=== PATIENT | female | born 1930 | race Caucasian/White ===

== ENCOUNTER 2016-03-24 11:21 | Observation (INO) ==
--- NOTE | 2016-03-24 11:42 | Emergency Department Note ---
Disposition Clinical Impression: Chest pain, Atrial fibrillation with rapid ventricular response, DM (diabetes mellitus), type 2, HTN (hypertension), Hyperlipidemia Disposition: Admitted As Inpatient Forms: ED Satisfaction Letter General Adult HPI - General Chief complaint: ED Chest Pain Stated complaint: chest pain Time Seen by Provider: 03/24/16 11:42 Source: patient Limitations: no limitations - History of Present Illness HPI Narrative: 85-year-old female reports emergency department complaining of general weakness and some chest discomfort. She takes per Pradaxa for her atrial fibrillation. The patient has not passed out. There is no history of fever cough or joshua shortness of breath. No coughing of blood leg swelling or pain about pain vomiting or diarrhea. The patient has had no trouble walking talking hearing seeing or speaking. She had more symptoms today so she came to the ED for evaluation. The patient denies any trauma rash or fever. There is no history of headache neck stiffness or confusion or convulsion. There is no history of bleeding of any sort. The patient has known atrial fibrillation. She has been somewhat anxious secondary to her sister's and took an extra dose of Prozac today. There is no history of suicidality or homicidality. No falls or injuries. 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 The chest pain has resolved. Onset (ago): day(s) Pain Scale: 0 - Related Data Home Medications Medication Instructions Recorded Confirmed FLUoxetine HCl [Prozac] 20 mg PO QAM 12/01/14 12/17/15 Folic Acid 1 mg PO QAM 12/01/14 12/17/15 GlipiZIDE XL (24 HR) [Glucotrol XL] 5 mg PO BID 12/01/14 12/17/15 Metformin HCl [Fortamet] 500 mg PO BID 12/01/14 12/17/15 Omeprazole [PriLOSEC] 20 mg PO QAM 01/20/15 12/17/15 Diltiazem CD (24hr) [Cardizem CD] 240 mg PO HS 05/10/15 12/17/15 Isosorbide MONOnitrate (24 HR) 135 mg PO QAM 05/10/15 12/17/15 [Imdur] PredniSONE 5 mg PO DAILY 08/12/15 12/17/15 Sulfasalazine [Azulfidine] 1,000 mg PO BID 08/12/15 12/17/15 Vitamin D3/Folic Acid [Dermacinrx 5,000 unit PO QWEEK 08/12/15 12/17/15 Purefolix Tablet] Digoxin [Lanoxin] 0.25 mg PO DAILY 12/17/15 12/17/15 Previous Rx's Medication Instructions Recorded Dabigatran [Pradaxa] 150 mg PO BID #60 capsule 01/22/15 Acetaminophen [Tylenol] 650 mg PO Q6HR PRN #0 tablet 05/15/15 Aspirin 325 mg PO DAILY tablet 05/15/15 Simvastatin [Zocor] 80 mg PO HS #0 tablet 05/15/15 Metoprolol [Lopressor] 50 mg PO BID #60 tablet 08/13/15 Ondansetron [Zofran] 8 mg PO Q8HR PRN #10 tablet 12/14/15 Ciprofloxacin [Cipro] 500 mg PO BID #14 tablet 12/20/15 MetroNIDAZOLE [Flagyl] 500 mg PO TID #21 tablet 12/20/15 Allergies Allergy/AdvReac Type Severity Reaction Status Date / Time No Known Allergies Allergy Verified 05/10/15 18:29 All systems ED: reviewed and negative except as stated. 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: Reports: non-contributory - Social History Smoking Status: Never smoker Smokeless Tobacco Status: No Alcohol use: Reports: none Drug use: Reports: none Physical Exam - General Limitations: no limitations General appearance: alert, in no apparent distress - Head Head exam: atraumatic, normocephalic, normal inspection - Eye Eye exam: Present: normal appearance, PERRL, EOMI - ENT ENT exam: normal exam, normal oropharynx, mucous membranes moist, TM's normal bilaterally, normal external ear exam - Neck Neck exam: Present: normal inspection, full ROM, trachea midline - Chest Chest inspection: Present: normal inspection, symmetric chest wall rise - Respiratory Respiratory exam: Present: normal lung sounds bilaterally. Absent: respiratory distress - Cardiovascular Cardiovascular exam: Present: tachycardia, irregular rhythm - Abdominal Exam Abdominal exam: Present: soft, Non-Tender. Absent: tenderness, distention, guarding, rebound, rigidity, pulsatile mass - Extremities Exam Extremities exam: Present: normal inspection, full ROM. Absent: tenderness, normal capillary refill, pedal edema, joint swelling, calf tenderness - Expanded Lower Extremity Exam Neurovascular/Tendon exam: Absent: normal capillary refill, motor deficit, sensory deficit, tendon deficit - Back Exam Back exam: Present: normal inspection, full ROM. Absent: tenderness, CVA tenderness (R), CVA tenderness (L), vertebral tenderness - Neurological Exam Neurological exam: Present: alert, oriented X3, CN II-XII intact. Absent: motor sensory deficit - Psychiatric Psychiatric exam: Present: normal affect, normal mood - Skin Skin exam: Present: warm, dry, intact, normal color. Absent: rash, cyanosis, diaphoresis, erythema, pallor, mottled Course Vital Signs Temperature 97.6 F 03/24/16 11:23 Pulse Rate 80 03/24/16 11:23 Respiratory Rate 18 03/24/16 11:23 Blood Pressure 125/79 03/24/16 11:23 O2 Sat by Pulse Oximetry 100 03/24/16 11:23 Temperature 97.6 F 03/24/16 11:23 Pulse Rate 80 03/24/16 11:23 Respiratory Rate 18 03/24/16 11:23 Blood Pressure 125/79 03/24/16 11:23 O2 Sat by Pulse Oximetry 100 03/24/16 11:23 Oxygen Delivery Oxygen Delivery Room Air Medical Decision Making - [facility] Narrative Medical decision making narrative: The patient is elderly, has diabetes, hypertension, hyperlipidemia, and is complaining of chest pain. The patient had initial heart rate in the 120s with what appeared to be rapid atrial fibrillation. The patient was given Cardizem which did bring her down under 100. Second EKG is been ordered. Aspirin is given. The patient takes Pradaxa. Chest x-ray negative, laboratory testing essentially nonacute. Based on her age and multiple risk factors including atrial fib relation with RVR, I think she should be admitted. I reviewed the case with the hospitalist on-call who accepted the patient to their care. - Lab Data Lab results reviewed: Yes I reviewed the patient's lab results. Result diagrams: 03/24/16 12:05 03/24/16 12:05 Lab Results 03/24/16 03/24/16 03/24/16 Range/Units 12:05 12:05 12:05 WBC 7.8 (4.3-11.1) K/mcL RBC 4.63 (3.82-4.97) M/mcL Hgb 13.3 (11.5-15.4) g/dL Hct 40.0 (35.3-44.9) % MCV 86.4 (83.0-100.0) fL MCH 28.7 (28.0-33.3) pg MCHC 33.3 (31.6-35.5) g/dL RDW 18.6 H (11.5-14.5) % Plt Count 308 (140-400) K/mcL MPV 11.0 (9.4-12.4) fL Immature Gran % 0.4 (0-4) % Seg Neutrophils % 66.6 % Lymphocytes % 22.6 % Monocytes % 7.9 % Eosinophils % 2.2 % Basophils % 0.3 % Neutrophils # 5.2 (1.6-8.9) K/mcL Lymphocytes # 1.8 (0.6-4.6) K/mcL Monocytes # 0.6 (0.0-1.3) K/mcL Eosinophils # 0.2 (0.0-0.6) K/mcL Basophils # 0.0 (0.0-0.2) K/mcL PT 13.6 H (9.4-12.1) Seconds INR 1.3 APTT 47.1 H (26.0-36.0) Seconds Sodium 136 (136-145) mEq/L Potassium 3.3 L (3.5-4.5) mEq/L Chloride 101 (98-109) mEq/L Carbon Dioxide 25 (19-29) mEq/L BUN 6 L (7-20) mg/dL Creatinine 0.79 (0.57-1.11) mg/dL Est GFR ( Amer) > 60 (> 60) Est GFR (Non-Af Amer) > 60 (> 60) BUN/Creatinine Ratio 8 (6-26) Glucose 248 H (70-99) mg/dL Calculated Osmolality 288 (280-300) Calcium 8.6 (8.6-10.8) mg/dL Total Bilirubin 0.8 (0.2-1.2) mg/dL Direct Bilirubin 0.4 (0.0-0.5) mg/dL Indirect Bilirubin 0.4 (0.0-1.2) mg/dL AST 11 (5-34) Units/L ALT 6 (0-55) Units/L Alkaline Phosphatase 49 (38-126) Units/L Creatine Kinase 55 (29-168) Units/L Troponin I (0-0.03) ng/mL C-Reactive Protein 15 H (Less than 5) mg/L Serum Total Protein 6.1 (6.0-8.3) g/dL Albumin 2.9 L (3.5-5.0) g/dL Globulin 3.2 (2.4-3.5) g/dL Albumin/Globulin Ratio 0.9 L (1.1-2.2) Lipase 21 (8-78) Units/L / Range/Units 12:05 WBC (4.3-11.1) K/mcL RBC (3.82-4.97) M/mcL Hgb (11.5-15.4) g/dL Hct (35.3-44.9) % MCV (83.0-100.0) fL MCH (28.0-33.3) pg MCHC (31.6-35.5) g/dL RDW (11.5-14.5) % Plt Count (140-400) K/mcL MPV (9.4-12.4) fL Immature Gran % (0-4) % Seg Neutrophils % % Lymphocytes % % Monocytes % % Eosinophils % % Basophils % % Neutrophils # (1.6-8.9) K/mcL Lymphocytes # (0.6-4.6) K/mcL Monocytes # (0.0-1.3) K/mcL Eosinophils # (0.0-0.6) K/mcL Basophils # (0.0-0.2) K/mcL PT (9.4-12.1) Seconds INR APTT (26.0-36.0) Seconds Sodium (136-145) mEq/L Potassium (3.5-4.5) mEq/L Chloride (98-109) mEq/L Carbon Dioxide (19-29) mEq/L BUN (7-20) mg/dL Creatinine (0.57-1.11) mg/dL Est GFR ( Amer) (> 60) Est GFR (Non-Af Amer) (> 60) BUN/Creatinine Ratio (6-26) Glucose (70-99) mg/dL Calculated Osmolality (280-300) Calcium (8.6-10.8) mg/dL Total Bilirubin (0.2-1.2) mg/dL Direct Bilirubin (0.0-0.5) mg/dL Indirect Bilirubin (0.0-1.2) mg/dL AST (5-34) Units/L ALT (0-55) Units/L Alkaline Phosphatase (38-126) Units/L Creatine Kinase (29-168) Units/L Troponin I 0.00 (0-0.03) ng/mL C-Reactive Protein (Less than 5) mg/L Serum Total Protein (6.0-8.3) g/dL Albumin (3.5-5.0) g/dL Globulin (2.4-3.5) g/dL Albumin/Globulin Ratio (1.1-2.2) Lipase (8-78) Units/L - Radiology Data Radiology results reviewed: Yes I reviewed the patient's radiology results.
[2016-03-24 12:46] LABS: Basophils % 0.3 %; Eosinophils # 0.2 K/mcL (0.0-0.6); Eosinophils % 2.2 %; Hemoglobin 13.3 g/dL (11.5-15.4); Immature Granulocytes % 0.4 % (0-4); Lymphocytes # 1.8 K/mcL (0.6-4.6); Lymphocytes % 22.6 %; Mean Corpuscular HGB Conc 33.3 g/dL (31.6-35.5); Mean Corpuscular Hemoglobin 28.7 pg (28.0-33.3); Mean Corpuscular Volume 86.4 fL (83.0-100.0); Monocytes # 0.6 K/mcL (0.0-1.3); Monocytes % 7.9 %; Neutrophils # 5.2 K/mcL (1.6-8.9); Platelet Count 308 K/mcL (140-400); Red Blood Count 4.63 M/mcL (3.82-4.97); Red Cell Distribution Width 18.6 % (11.5-14.5); Segmented Neutrophils % 66.6 %
[2016-03-24 12:49] LABS: INR 1.3; Prothrombin Time 13.6 Seconds (9.4-12.1)
[2016-03-24 12:51] LABS: Activated Partial Thrombo Time 47.1 Seconds (26.0-36.0)
[2016-03-24 13:00] LABS: Alanine Aminotransferase 6 Units/L (0-55); Albumin 2.9 g/dL (3.5-5.0); Albumin/Globulin Ratio 0.9 (1.1-2.2); Alkaline Phosphatase 49 Units/L (38-126); Aspartate Amino Transferase 11 Units/L (5-34); BUN/Creatinine Ratio 8 (6-26); Bilirubin,Direct 0.4 mg/dL (0.0-0.5); Bilirubin,Indirect 0.4 mg/dL (0.0-1.2); Bilirubin,Total 0.8 mg/dL (0.2-1.2); Blood Urea Nitrogen 6 mg/dL (7-20); C-Reactive Protein 15 mg/L (Less than 5); Calcium 8.6 mg/dL (8.6-10.8); Carbon Dioxide 25 mEq/L (19-29); Chloride 101 mEq/L (98-109); Creatine Kinase 55 Units/L (29-168); Globulin 3.2 g/dL (2.4-3.5); Glucose 248 mg/dL (70-99); Lipase 21 Units/L (8-78); Osmolality,Calculated 288 (280-300); Potassium 3.3 mEq/L (3.5-4.5); Sodium 136 mEq/L (136-145); Total Protein 6.1 g/dL (6.0-8.3); eGFR For African Americans > 60 (> 60); eGFR For Non-African Americans > 60 (> 60)
[2016-03-24] MEDS ORDERED: Aspirin 325 MG TABLET PO ONE (14:22)
[2016-03-24 15:36] LABS: Digoxin < 0.3 ng/mL (0.8-2.0)
[2016-03-24] MEDS ORDERED: Acetaminophen 325 MG TABLET PO PRN (15:38)
[2016-03-24] MEDS ORDERED: *HR* HYDROcodone/Acet 5/325 mg TABLET PO PRN (15:38)
[2016-03-24] MEDS ORDERED: Naloxone 0.4 MG/ML INJ IVP PRN (15:38)
[2016-03-24] MEDS ORDERED: Ondansetron 4 MG/2 ML VIAL IVP PRN (15:38)
--- NOTE | 2016-03-24 15:58 | Internal Med History&Physical ---
<Camelia Purcell L - Last Filed: 03/24/16 15:51> Date of Encounter: 03/24/16 Time of Encounter: 15:20 Assessment and Plan (1) Atrial fibrillation with rapid ventricular response Current visit: Yes Status: Acute Pt had L superior chest pain, lasting about 2 minutes today, resolved spontaneously. Initial troponin 0.00ng/dL. VS WNL pulse 80s, resps 16, 125/79, pt is 100% on 2L /. Denies pain or SOB since arrival to ED. Pt's last echo in Jan, 2015. LEVF 55-60%, mild L ventricular hypertrophy, and indeterminate diastolic function. Chest xray with no acute pulmonary process, no effusion or pneumothorax. Pt has a pacemaker. Pt has requested to be a DNR. Echo Monitor labs VS q4 hours Continue home medications (2) Chest pain Current visit: Yes Status: Acute Same plan as above Qualifiers: Chest pain type: unspecified Qualified Code(s): R07.9 - Chest pain, unspecified (3) Diabetes Current visit: No Status: Chronic A1c 5.0% in Dec, 2015. Accucheck 248. Diabetic diet Nutritional and sliding scale insulin Qualifiers: Diabetes mellitus type: type 2 Diabetes mellitus complication status: without complication Qualified Code(s): E11.9 - Type 2 diabetes mellitus without complications (4) Hypokalemia Current visit: No Status: Acute Potassium in ED 3.3 meq/L. K-dur 40meq po Internal Medicine - H&P: HPI Admitted From: Home Plans for Post Hospital Care: Home History of present illness: Ms. 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 Pt reports SOB, dizziness, diaphoresis and L chest pain this a.m , and nausea for 2 days. Pt states that pain resolved on its own. EKG on arrival A-fib with RVR. History of A-fib, hyperlipidemia, RA, CVA, and GERD. Past Med Surg Social Fam HX - Past Medical History Medical history: arthritis, atrial fibrillation, CVA, diabetes, GERD, hyperlipidemia, hypertension, other Psychiatric history: no psych history - Past Surgical History Surgical History: cholecystectomy, other - Social History Smoking Status: Never smoker Smokeless Tobacco Status: No Alcohol use: none Drug use: none - Family History Father Hx Family Cardiac Disorders: Yes (HTN) Mother Hx Family Cardiac Disorders: Yes (HTN) Brother Adopted: No Family Member Ethnicity: Non- Living Status: Hx Family Cardiac Disorders: Yes Hx Family Respiratory Disorders: No Hx Family Cancer: No Hx Family GI Disorders: No Hx Family Endocrine Disorder: No Hx Family Neuromuscular Disorders: No Hx Family HEENT Disorders: No Hx Family Autoimmune Disorders: No Internal Medicine - H&P: Meds FLUoxetine HCl [Prozac] 40 mg PO QAM 12/01/14 [History] Metformin HCl [Fortamet] 500 mg PO BID 12/01/14 [History] Dabigatran [Pradaxa] 150 mg PO BID #60 capsule 01/22/15 [Rx] Diltiazem CD (24hr) [Cardizem CD] 240 mg PO QAM 05/10/15 [History] Isosorbide MONOnitrate (24 HR) [Imdur] 90 mg PO QAM 05/10/15 [History] Aspirin 325 mg PO DAILY tablet 05/15/15 [Rx] Simvastatin [Zocor] 80 mg PO HS #0 tablet 05/15/15 [Rx] Sulfasalazine [Azulfidine] 1,000 mg PO BID 08/12/15 [History] Metoprolol [Lopressor] 50 mg PO BID #60 tablet 08/13/15 [Rx] Ondansetron [Zofran] 8 mg PO Q8HR PRN #10 tablet 12/14/15 [Rx] Allergies No Known Allergies Allergy (Verified 05/10/15 18:29) All Systems PM: A 10-system review of systems was performed and is negative for pertinent findings except as documented above in the HPI. - Constitutional Constitutional: weakness, no chills, no fever(s) - Cardiovascular Cardiovascular ROS IM: chest pain, diaphoresis, dyspnea, irregular heart rhythm , no edema, no palpitations - Respiratory Respiratory: no cough, no dyspnea on exertion, no chest congestion - Gastrointestinal Gastrointestinal: heartburn, nausea, no diarrhea, no vomiting Additional comments: C/o heartburn after she takes her medications. - Musculoskeletal Musculoskeletal ROS IM: limited range of motion, muscle weakness, no back pain Additional comments: Pt states that she is having to use her rolling walker to get around in her house. States that she is afraid of falling. - Neurological Neurological ROS: dizziness, weakness, no confusion - Constitutional Vitals: Temp Pulse Resp BP Pulse Ox 97.6 F 72 16 110/68 98 03/24/16 11:23 03/24/16 15:00 03/24/16 15:00 03/24/16 15:00 03/24/16 15:00 General appearance: Present: cooperative, A&O X 3, pleasant, no acute distress - Head Head exam: Present: normal inspection - Neck Neck exam general surgery: Present: normal inspection. Absent: lymphadenopathy , tenderness - Respiratory Respiratory exam: Present: rales. Absent: chest wall tenderness, decreased breath sounds, respiratory distress, rhonchi, wheezes - Cardiovascular Cardiovascular exam: Present: irregular rhythm, +S1, +S2. Absent: bradycardia, diastolic murmur, systolic murmur - GI/Abdominal GI/Abdominal exam: Present: normal bowel sounds, soft. Absent: tenderness - Extremities Exam Extremities exam: Present: warm, radial pulses palpable and symetrical. Absent : pedal edema, tenderness Additional comments: Niko pedal pulses +1. - Neurological Exam Neurological exam: Present: alert, oriented X3, no focal deficits Internal Med - H&P Results - Labs CBC & Chem 7: 03/24/16 12:05 03/24/16 12:05 - EKG Data -: EKG Interpreted by Myself - EKG Data EKG comments: 03/24/16 16:06 ER EKG A-fib RVR, rate 109, QRS dur 84ms, QTc 396ms <Adelso Mehta - Last Filed: 03/24/16 18:55> Date of Encounter: 03/24/16 Internal Medicine - H&P: HPI History of present illness: Ms. Bolaños is a 85 year old female All Systems PM: A 10-system review of systems was performed and is negative for pertinent findings except as documented above in the HPI. - Constitutional Vitals: Temp Pulse Resp BP Pulse Ox 98.2 F 74 16 117/78 99 03/24/16 17:47 03/24/16 17:47 03/24/16 17:47 03/24/16 17:47 03/24/16 17:47 Internal Med - H&P Results - Labs CBC & Chem 7: 03/24/16 12:05 03/24/16 12:05 - Attending Attestation 85 Y/O F being managed for Afib with RVR, Hypokalemia, Chest pain. Most likely her chest pain is from RVR. At time of review, her HR has been controlled s/p one dose Cardizem in ED. She is currently asymptomatic. Labs and Imaging reviewed Plan is to resume home meds, obtain ECHO, repeat one more set of troponin, replace potassium and rpt chem a.m, monitor closely Cardiology for PCM interrogation. Patient is DNR-CC
[2016-03-24] MEDS ORDERED: Dextrose Gel 15 GM PO PRN ×2 (16:34)
[2016-03-24] MEDS ORDERED: D5% in Water 1,000 ML IV PRN (16:34)
[2016-03-24] MEDS ORDERED: *HR* Dextrose 50 % in Water (Syg) 50 ML SYRINGE IVP PRN (16:34)
[2016-03-24] MEDS: Insulin LISPRO 300 UNITS/3 ML VIAL SQ SCH ×2 (17:57→21:50)
[2016-03-24] MEDS: sulfaSALAzine 500 MG TABLET PO SCH (21:46)
[2016-03-24] MEDS: *HR* Dabigatran 150 MG CAPSULE PO SCH (21:46)
[2016-03-25 06:26] LABS: Basophils % 0.4 %; Eosinophils # 0.3 K/mcL (0.0-0.6); Hematocrit 38.7 % (35.3-44.9); Immature Granulocytes % 0.3 % (0-4); Lymphocytes # 1.9 K/mcL (0.6-4.6); Lymphocytes % 26.7 %; Mean Corpuscular HGB Conc 33.6 g/dL (31.6-35.5); Mean Corpuscular Hemoglobin 28.8 pg (28.0-33.3); Mean Corpuscular Volume 85.8 fL (83.0-100.0); Mean Platelet Volume 10.5 fL (9.4-12.4); Monocytes # 0.6 K/mcL (0.0-1.3); Monocytes % 8.2 %; Neutrophils # 4.2 K/mcL (1.6-8.9); Platelet Count 257 K/mcL (140-400); Red Blood Count 4.51 M/mcL (3.82-4.97); Red Cell Distribution Width 18.5 % (11.5-14.5); Segmented Neutrophils % 60.4 %
[2016-03-25 06:41] LABS: BUN/Creatinine Ratio 12 (6-26); Blood Urea Nitrogen 9 mg/dL (7-20); Calcium 8.3 mg/dL (8.6-10.8); Carbon Dioxide 24 mEq/L (19-29); Chloride 106 mEq/L (98-109); Glucose 140 mg/dL (70-99); Osmolality,Calculated 289 (280-300); Potassium 3.6 mEq/L (3.5-4.5); Sodium 139 mEq/L (136-145); eGFR For African Americans > 60 (> 60); eGFR For Non-African Americans > 60 (> 60)
[2016-03-25] MEDS: Insulin LISPRO 300 UNITS/3 ML VIAL SQ SCH ×7 (10:09→21:26)
[2016-03-25] MEDS: FLUoxetine 20 MG CAPSULE PO SCH (10:16)
[2016-03-25] MEDS: *HR* Dabigatran 150 MG CAPSULE PO SCH ×2 (10:16→21:29)
[2016-03-25] MEDS: sulfaSALAzine 500 MG TABLET PO SCH ×2 (10:16→21:27)
[2016-03-25] MEDS: Diltiazem CD (24hr) 240 MG CAPSULE PO SCH (10:16)
[2016-03-25] MEDS: Aspirin 325 MG TABLET PO SCH (10:16)
[2016-03-25] MEDS: Isosorbide MONOnitrate (24 HR) 60 MG TAB.ER.24H PO SCH (10:16)
--- NOTE | 2016-03-25 11:17 | Internal Med Progress Note ---
Date of Encounter: 03/25/16 Time of Encounter: 11:16 - Assessment and plan (1) Chest pain Current Visit: Yes Status: Acute Assessment and plan: likely related to atrial fibrillation with RVR; per patient, this happens frequently at home but usually does not cause chest pain; serum Troponins remain WNL; no new Telemetry changes; Echocardiogram shows mild-moderate TR, preserved EF; continue current management; Qualifiers: Chest pain type: unspecified Qualified Code(s): R07.9 - Chest pain, unspecified (2) Atrial fibrillation with rapid ventricular response Current Visit: Yes Status: Chronic Assessment and plan: rate-controlled with one dose of IV Cardizem in the ER; has been stable since then; continue PO Cardizem, beta-tom, 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 Telemetry monitoring. Patient noted to have generalized weakness and lives alone at this time; will get PT/OT evaluation and patient is agreeable to ECF placement if indicated; director dental services consult for safe discharge; (3) Rheumatoid arthritis Current Visit: Yes Status: Chronic Qualifiers: Rheumatoid arthritis location: unspecified site Rheumatoid factor presence : unspecified presence Qualified Code(s): M06.9 - Rheumatoid arthritis, unspecified (4) DM (diabetes mellitus), type 2 Current Visit: Yes Status: Chronic Assessment and plan: Accucheck blood glucose monitoring with sliding scale insulin as needed; diabetic diet; Qualifiers: Diabetes mellitus complication status: without complication Diabetes mellitus termite exterminator helper insulin use: without termite exterminator helper use Qualified Code(s): E11.9 - Type 2 diabetes mellitus without complications (5) HTN (hypertension) Current Visit: Yes Status: Chronic Qualifiers: Hypertension type: essential hypertension Qualified Code(s): I10 - Essential (primary) hypertension - Subjective Interval history: No chest pain, shortness of breath, palpitations. 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 Patient does live alone and is agreeable to placement in extended care facility, if needed. - Constitutional Vitals: Temp Pulse Resp BP Pulse Ox 98.2 F 86 17 130/89 95 03/25/16 11:08 03/25/16 11:08 03/25/16 11:08 03/25/16 11:08 03/25/16 11:08 General appearance: Present: cooperative, A&O X 3, answers questions appropriately - Respiratory Respiratory exam: Present: CTAB. Absent: accessory muscle use, rales, rhonchi, wheezes - Cardiovascular Cardiovascular exam: Present: irregular rhythm, +S1, +S2. Absent: diastolic murmur, gallop, rubs, systolic murmur - GI/Abdominal GI/Abdominal exam: Present: normal bowel sounds, soft, no peritoneal signs. Absent: distended, tenderness - Neurological Exam Neurological exam: Present: CN II-XII intact, oriented X3, no focal deficits. Absent: pronater drift, facial droop, speech deficit Internal Medicine: Result - Labs CBC & Chem 7: 03/25/16 06:13 03/25/16 06:13 Labs: Short CBC 03/25/16 Range/Units 06:13 WBC 7.0 (4.3-11.1) K/mcL Hgb 13.0 (11.5-15.4) g/dL Hct 38.7 (35.3-44.9) % Plt Count 257 (140-400) K/mcL Neutrophils # 4.2 (1.6-8.9) K/mcL BMP 03/25/16 06:13 Sodium 139 Potassium 3.6 Chloride 106 Carbon Dioxide 24 BUN 9 Creatinine 0.73 Glucose 140 H Calcium 8.3 L - ABG Interpretation ABG results: PT/INR, D-dimer PT 13.6 Seconds (9.4-12.1) H 03/24/16 12:05 Consult Discharge Plan - Plan Referrals: Peter Mckenzie DO [Primary Care Provider] -
--- NOTE | 2016-03-25 13:55 | ECHO - Doppler Report ---
Echocardiogram Name: Ariella Bolaños Date of Study: 03/25/2016 Date: 1930 Ht: 67.0 in Medical Record#: [id number] Age: 85 Wt: 139.0 lb Gender: Female BSA: 1.73 Order #: [id number] Location: [facility] Room #: Reading Physician: Theron Fraga DO, RMASES, KLAUDIA GÓMEZ Manager Trade: Sebas Vance RDCS Ordering Physician: Camelia Purcell CNP Primary Physician: None Indications: Atrial Fibrillation Impressions: LVEF 65%. Normal LV chamber size, wall thickness and function. Indeterminate diastolic function. Normal right ventricular structure and function. Mild-moderate tricuspid regurgitation. Mild pulmonary hypertension. Estimated RVSP is 38 mmHg. Left Ventricular Wall Motion: Rest Echo Findings All wall segments showed normal motion. Findings: Study Quality * Technically adequate exam. ECG Findings * Atrial fibrillation. Left Ventricle * LVEF 65%. * Normal LV chamber size, wall thickness and function. * Indeterminate diastolic function. Right Ventricle * Normal right ventricular structure and function. Left Atrium * Mildly dilated left atrium. Right Atrium * Moderately dilated right atrium. Interatrial Septum * No evidence of PFO by color Doppler. Aortic Valve * Trileaflet aortic valve. * Mildly sclerotic aortic valve leaflets. * No aortic regurgitation. * No aortic stenosis. Mitral Valve * Normal mitral valve structure and function. * No mitral regurgitation. * No mitral stenosis. Tricuspid Valve * Normal tricuspid valve structure. * Mild-moderate tricuspid regurgitation. * Mild pulmonary hypertension. * Estimated RVSP is 38 mmHg. * Estimated RA pressure is 5 mmHg. Pulmonic Valve * Normal pulmonic valve structure and function. Aorta * Normally sized aortic root. Pericardium * The pericardium appears normal. IVC * Normal IVC dimensions and inspiratory collapse. Pulmonary Artery * Normal visualized portions of the main pulmonary artery. History Hypertension Diabetes Hypercholesteremia Pacer/ICD Implant 01/21/15 a Previous Echo was performed. Measurements: BP: 136/ 95 2D Normal Values RVIDd: 2.50 cm <2.7 cm IVSd: 1.00 cm 0.6 - 1.0 cm LVIDd: 4.30 cm 3.7 - 5.6 cm LVPWd: .80 cm 0.6 - 1.1 cm LVIDs: 2.90 cm 1.5 - 3.6 cm AO: 2.90 cm < 4.0 cm LA: 2.70 cm 2.0 - 4.0cm %FS: 32.60 cm >25 % LA volume: 56 Mitral Valve Peak E:.91 m/sec Peak E' Lat Poncho:9.46 cm/s Peak E' Med Poncho:6.53 cm/s E/E' Lat Ratio:9.6 E/E' Med Ratio:13.9 Tricuspid Valve TV Regurg Peak Grad: 33.00mmHg TV Regurg Peak Poncho: 2.86m/sec Updated by Theron Fraga DO, FACAnn Marie, DALIA, FASMELISSA on 03/25/2016 1:51:24 PM electronically signed on 03/25/2016 1:51:39 PM with status of Final Wall Motion Young: 1=Normal, 2=Hypokinesis, 3=Akinesis, 4=Dyskinesis, 5=Aneurysmal, 6=Hyperkinetic, X=Not Visualized (Blank)=Missing
[2016-03-26] MEDS: sulfaSALAzine 500 MG TABLET PO SCH ×3 (05:16→20:32)
--- NOTE | 2016-03-26 08:44 | Internal Med Progress Note ---
Date of Encounter: 03/26/16 Time of Encounter: 08:43 - Assessment and plan (1) Chest pain Current Visit: Yes Status: Acute Assessment and plan: likely related to atrial fibrillation with RVR; improved. serum Troponins remain WNL; no new Telemetry changes; Echocardiogram shows mild-moderate TR, preserved EF; continue current management; Qualifiers: Chest pain type: precordial pain Qualified Code(s): R07.2 - Precordial pain (2) Atrial fibrillation with rapid ventricular response Current Visit: Yes Status: Chronic Assessment and plan: rate-controlled with one dose of IV Cardizem in the ER; has been stable since then; continue PO Cardizem, beta-tom, usp anticoagulation with Pradaxa. Telemetry monitoring. Physical therapy evaluation noted, recommend placement in extended care facility for continued rehabilitation. healthcare advisory services manager consult for safe discharge; (3) Rheumatoid arthritis Current Visit: Yes Status: Chronic Assessment and plan: Continue sulfasalazine, pain control with when necessary Tylenol. Qualifiers: Rheumatoid arthritis location: unspecified site Rheumatoid factor presence : unspecified presence Qualified Code(s): M06.9 - Rheumatoid arthritis, unspecified (4) DM (diabetes mellitus), type 2 Current Visit: Yes Status: Chronic Assessment and plan: Accucheck blood glucose monitoring with sliding scale insulin as needed; diabetic diet; resume home dose of metformin. Qualifiers: Diabetes mellitus complication status: without complication Diabetes mellitus usp insulin use: without usp use Qualified Code(s): E11.9 - Type 2 diabetes mellitus without complications (5) HTN (hypertension) Current Visit: Yes Status: Chronic Qualifiers: Hypertension type: essential hypertension Qualified Code(s): I10 - Essential (primary) hypertension - Subjective Interval history: No chest pain, shortness of breath, palpitations. Reports that she may not be receiving all her home medications, agreed to check her home med rec and start all her medications. Seen by physical therapy, awaiting placement in rehabilitation. - Constitutional Vitals: Temp Pulse Resp BP Pulse Ox 97.8 F 84 17 146/74 95 03/26/16 08:23 03/26/16 08:23 03/26/16 08:23 03/26/16 08:23 03/26/16 08:23 General appearance: Present: A&O X 3, answers questions appropriately - Respiratory Respiratory exam: Present: CTAB. Absent: accessory muscle use, rales, rhonchi, wheezes - Cardiovascular Cardiovascular exam: Present: irregular rhythm, +S1, +S2. Absent: diastolic murmur, gallop, rubs, systolic murmur - GI/Abdominal GI/Abdominal exam: Present: normal bowel sounds, soft, no peritoneal signs. Absent: distended, tenderness - Extremities Exam Extremities exam: Present: full ROM, warm, radial pulses palpable and symetrical. Absent: calf tenderness, cyanotic, pedal edema Internal Medicine: Result - Labs CBC & Chem 7: 03/25/16 06:13 03/25/16 06:13 - ABG Interpretation ABG results: PT/INR, D-dimer PT 13.6 Seconds (9.4-12.1) H 03/24/16 12:05 Consult Discharge Plan - Plan Referrals: Peter Mckenzie DO [Primary Care Provider] -
[2016-03-26] MEDS: Insulin LISPRO 300 UNITS/3 ML VIAL SQ SCH ×6 (09:25→20:29)
[2016-03-26] MEDS: *HR* Dabigatran 150 MG CAPSULE PO SCH ×2 (09:27→20:30)
[2016-03-26] MEDS: Isosorbide MONOnitrate (24 HR) 60 MG TAB.ER.24H PO SCH (09:28)
[2016-03-26] MEDS: Diltiazem CD (24hr) 240 MG CAPSULE PO SCH (09:28)
[2016-03-26] MEDS: *HR* Metformin 500 MG TABLET PO SCH ×2 (09:29→20:32)
[2016-03-26] MEDS: Aspirin 325 MG TABLET PO SCH (09:29)
[2016-03-26] MEDS: FLUoxetine 20 MG CAPSULE PO SCH (09:29)
--- NOTE | 2016-03-27 08:17 | Discharge Summary ---
Date of Encounter: 03/27/16 Time of Encounter: 08:14 - Discharge Diagnosis (1) Chest pain Priority: Primary Status: Resolved Qualifiers: Chest pain type: precordial pain Qualified Code(s): R07.2 - Precordial pain (2) Atrial fibrillation with rapid ventricular response Priority: Primary Status: Resolved (3) Rheumatoid arthritis Priority: Secondary Status: Chronic Qualifiers: Rheumatoid arthritis location: unspecified site Rheumatoid factor presence : unspecified presence Qualified Code(s): M06.9 - Rheumatoid arthritis, unspecified (4) DM (diabetes mellitus), type 2 Priority: Secondary Status: Chronic Qualifiers: Diabetes mellitus complication status: without complication Diabetes mellitus extermination supervisor insulin use: without extermination supervisor use Qualified Code(s): E11.9 - Type 2 diabetes mellitus without complications (5) HTN (hypertension) Priority: Secondary Status: Chronic Qualifiers: Hypertension type: essential hypertension Qualified Code(s): I10 - Essential (primary) hypertension - Discharge Medications Home Medications: FLUoxetine HCl [Prozac] 40 mg PO QAM 12/01/14 [History] Metformin HCl [Fortamet] 500 mg PO BID 12/01/14 [History] Dabigatran [Pradaxa] 150 mg PO BID #60 capsule 01/22/15 [Rx] Diltiazem CD (24hr) [Cardizem CD] 240 mg PO QAM 05/10/15 [History] Isosorbide MONOnitrate (24 HR) [Imdur] 90 mg PO QAM 05/10/15 [History] Simvastatin [Zocor] 80 mg PO HS #0 tablet 05/15/15 [Rx] Sulfasalazine [Azulfidine] 1,000 mg PO BID 08/12/15 [History] Metoprolol [Lopressor] 50 mg PO BID #60 tablet 08/13/15 [Rx] Ondansetron [Zofran] 8 mg PO Q8HR PRN #10 tablet 12/14/15 [Rx] Allergies/Adverse Reactions: Allergies No Known Allergies Allergy (Verified 05/10/15 18:29) Procedures/tests Complete & Pending: Procedures Performed prior 72 hours Category Date Time Status EV echocardiogram Routine Y 03/24/16 15:50 Completed Date of admission: 03/24/16 14:56 Primary care physician: Peter Mckenzie Consults: 03/24/16 15:49 Consult to Fashion Journalist [CONS] Routine Reason for SW Consult: Pt lives alone, is having increasing diff with amb and self care. 03/24/16 16:40 Consult to Nutrition [CONS] Routine Comment: Consulting Provider: NUTRITION Reason for Dietary Consult: Supplemental Nutrition 03/24/16 16:48 Consult to Occupational Therapy [CONS] Routine Comment: Evaluate, develop and implement POC Consult to Physical Therapy [CONS] Routine Comment: Evaluate, develop and implement POC Discharging clinician: Marizol Alatorre Anticipated date of discharge: 03/27/16 - Patient Status Disposition: Transfer SNF Condition: Fair Functional capacity at discharge: uses cane/walker Overall status at discharge: patient is progressing back to baseline - Discharge Instructions Instructions: Atrial Fibrillation (DC) Follow Up With: Peter Mckenzie DO [Primary Care Provider] - (Web request 03/26/2016 [email or web address]) - Diet and Activity Activity: as per physical therapy, resume usual activities as tolerated Diet: diabetic diet, low fat, low cholesterol, low salt diet Hospital course: Ms. Bolaños is a 85 year old female with h/o- a.fib, admitted with chest discomfort and palpitations. she was noted to have atrial fibrillation with RVR in the ER, which improved with IV Cardizem and remained stable since then. She was resumed on her home meds. PT evaluation was done and recommended SNF placement. However due to insurance issues, she could not be placed and was agreeable to go home with [facility], and referral has been made, and family explained regarding the plan of care. - Time Spent with Patient Total time spent providing and/or coordinating discharge services: Greater than 30 minutes (45 min) - Constitutional Vitals: Temp Pulse Resp BP Pulse Ox 98.4 F 95 17 129/80 97 03/27/16 07:35 03/27/16 07:35 03/27/16 07:35 03/27/16 07:35 03/27/16 07:35 General appearance: Present: A&O X 3, answers questions appropriately - Respiratory Respiratory exam: Present: CTAB. Absent: accessory muscle use, rales, rhonchi, wheezes - Cardiovascular Cardiovascular exam: Present: irregular rhythm, +S1, +S2. Absent: diastolic murmur, gallop, rubs, systolic murmur
[2016-03-27] MEDS: Insulin LISPRO 300 UNITS/3 ML VIAL SQ SCH ×2 (08:52→12:01)
[2016-03-27] MEDS: *HR* Metformin 500 MG TABLET PO SCH (08:53)
[2016-03-27] MEDS: FLUoxetine 20 MG CAPSULE PO SCH (08:53)
[2016-03-27] MEDS: Aspirin 325 MG TABLET PO SCH (08:53)
[2016-03-27] MEDS: Isosorbide MONOnitrate (24 HR) 60 MG TAB.ER.24H PO SCH (08:53)
[2016-03-27] MEDS: sulfaSALAzine 500 MG TABLET PO SCH (08:53)
[2016-03-27] MEDS: Diltiazem CD (24hr) 240 MG CAPSULE PO SCH (08:53)
[2016-03-27] MEDS: *HR* Dabigatran 150 MG CAPSULE PO SCH (08:53)
--- NOTE | 2016-03-27 09:22 | Electrocardiograph Report ---
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
[2016-03-27 11:17] VITALS: BP 116/70
--- NOTE | 2016-03-27 14:11 | Physician Discharge Referral ---
Home Health/Hosp Referral Info Transfer to: Home Health Attending Provider: Marizol Alatorre Provider in Charge Post Discharge: PCP - Diagnosis (1) Chest pain Priority: Primary Status: Resolved (2) Atrial fibrillation with rapid ventricular response Priority: Primary Status: Resolved (3) Rheumatoid arthritis Priority: Secondary Status: Chronic (4) DM (diabetes mellitus), type 2 Priority: Secondary Status: Chronic (5) HTN (hypertension) Priority: Secondary Status: Chronic - Respiratory Orders Smoking Cessation: Smoking cessation has been advised. For more information, call the [place] Tobacco Quit Line at 2-831-AIPF-NOW. - Diet/Nutrition Diet/Nutrition Orders: Cardiac, No Concentrated Sweets (diabetic) - Activity Activity Orders: Ambulate - Services Needed Following services are medically necessary services: Nursing, Physical Therapy, Occupational Therapy - Transfer Medications Home Medications: FLUoxetine HCl [Prozac] 40 mg PO QAM 12/01/14 [History] Metformin HCl [Fortamet] 500 mg PO BID 12/01/14 [History] Dabigatran [Pradaxa] 150 mg PO BID #60 capsule 01/22/15 [Rx] Diltiazem CD (24hr) [Cardizem CD] 240 mg PO QAM 05/10/15 [History] Isosorbide MONOnitrate (24 HR) [Imdur] 90 mg PO QAM 05/10/15 [History] Aspirin 325 mg PO DAILY tablet 05/15/15 [Rx] Simvastatin [Zocor] 80 mg PO HS #0 tablet 05/15/15 [Rx] Sulfasalazine [Azulfidine] 1,000 mg PO BID 08/12/15 [History] Metoprolol [Lopressor] 50 mg PO BID #60 tablet 08/13/15 [Rx] Ondansetron [Zofran] 8 mg PO Q8HR PRN #10 tablet 12/14/15 [Rx] Allergies/Adverse Reactions: Allergies No Known Allergies Allergy (Verified 05/10/15 18:29) Certification: Further, I certify that my clinical findings support that this patient is homebound (i.e. absences from home require considerable and taxing effort and are for medical reasons or samaritan services or infrequently or short duration when for other reasons) because: Homebound Reason: Patient requires assistance of a person or device to safely leave home, Leaving home requires considerable and taxing effort due to condition Attestation: My signature below is to certify that this patient is under my care and that I, or nurse practitioner, or a physician's criminal legal assistant working with me, has a face-to -face encounter with this patient.
== END 2016-03-27 17:15 | disposition home health service (06) ==
LOC: EMEROO 11:21 → 2ANU 11:21
PROVIDERS: ADMIT Internal Medicine; ATTEND Internal Medicine

== ENCOUNTER 2016-05-10 15:10 | Inpatient (IN) ==
[2016-05-10] MEDS ORDERED: 0.9 % Sodium Chloride 1,000 ML IVC ONE (16:12)
--- NOTE | 2016-05-10 16:16 | Emergency Department Note ---
Disposition Clinical Impression: Cystitis, Failure of outpatient treatment Intractable vomiting Qualifiers: Vomiting type: unspecified Nausea presence: with nausea Qualified Code(s): R11.2 - Nausea with vomiting, unspecified Disposition: Admitted As Inpatient Referrals: Peter Mckenzie DO [Primary Care Provider] - Forms: ED Satisfaction Letter Female Urogenital HPI - General Chief complaint: ED Urogenital-Female Stated complaint: UTI Time Seen by Provider: 05/10/16 16:00 Source: patient Mode of arrival: ambulatory Nursing Notes Reviewed: Yes Vital Signs Reviewed: Yes - History of Present Illness Pt Subjective Complaint: dysuria Onset (ago): week(s) (1) Location: suprapubic Severity: mild Quality: burning Duration: intermittent Improves with: none Urinary Symptoms: dysuria, urgency, hematuria (Started today) Associated symptoms: Reports: nausea/vomiting, other (Patient has been on Vicodin for 6 days) - Related Data Home Medications Medication Instructions Recorded Confirmed FLUoxetine HCl [Prozac] 40 mg PO QAM 12/01/14 03/24/16 Metformin HCl [Fortamet] 500 mg PO BID 12/01/14 03/24/16 Diltiazem CD (24hr) [Cardizem CD] 240 mg PO QAM 05/10/15 03/24/16 Isosorbide MONOnitrate (24 HR) 90 mg PO QAM 05/10/15 03/24/16 [Imdur] Sulfasalazine [Azulfidine] 1,000 mg PO BID 08/12/15 03/24/16 Metoprolol [Lopressor] 25 mg PO BID 05/10/16 05/10/16 Simvastatin [Zocor] 40 mg PO HS 05/10/16 05/10/16 Previous Rx's Medication Instructions Recorded Dabigatran [Pradaxa] 150 mg PO BID #60 capsule 01/22/15 Nitrofurantoin (BID) [Macrobid] 100 mg PO BID #20 capsule 05/05/16 Allergies Allergy/AdvReac Type Severity Reaction Status Date / Time No Known Allergies Allergy Verified 05/10/16 15:17 All systems ED: reviewed and negative except as stated. Constitutional: Denies: fever, chills, weakness Respiratory: Denies: cough Gastrointestinal: Denies: abdominal pain, nausea, vomiting Past Medical History - Past Medical History Source: patient, obtained from family, nursing notes reviewed Medical history: Reports: arthritis, atrial fibrillation, CVA, diabetes, GERD, hyperlipidemia, hypertension, other Surgical history: Reports: cholecystectomy, other Psychiatric history: Reports: no psych history SINK MAKER history: Reports: non-contributory - Social History Smoking Status: Never smoker Smokeless Tobacco Status: No Alcohol use: Reports: none Drug use: Reports: none Physical Exam - General Limitations: no limitations General appearance: alert - Head Head exam: atraumatic, normocephalic, normal inspection - Eye Eye exam: Present: normal appearance, PERRL, EOMI - Expanded Eye Exam Pupils: Left: reactive - ENT ENT exam: normal exam, normal oropharynx, mucous membranes moist - Expanded ENT Exam External ear exam: Present: normal external inspection Mouth exam: Present: normal external inspection Teeth exam: Present: normal inspection Throat exam: Present: normal inspection - Neck Neck exam: Present: normal inspection, full ROM, trachea midline - Chest Chest inspection: Present: normal inspection, symmetric chest wall rise - Respiratory Respiratory exam: Present: normal lung sounds bilaterally - Cardiovascular Cardiovascular exam: Present: regular rate, normal rhythm, normal heart sounds - Abdominal Exam Abdominal exam: Present: soft, Non-Tender. Absent: tenderness, distention, guarding, rebound, rigidity - Extremities Exam Extremities exam: Present: normal inspection, full ROM. Absent: tenderness, pedal edema - Expanded Upper Extremity Exam Shoulder exam: Present: normal inspection, full ROM Arm exam: Present: normal inspection, full ROM Elbow exam: Present: normal inspection, full ROM Forearm/Wrist exam: Present: normal inspection, full ROM Hand exam: Present: normal inspection, full ROM Vascular exam: Normal: capillary refill, radial pulse - Expanded Lower Extremity Exam Hip/Pelvis exam: Present: normal inspection, full ROM Upper leg exam: Present: normal inspection, full ROM Knee exam: Present: normal inspection, full ROM Lower leg exam: Present: normal inspection, full ROM Ankle exam: Present: normal inspection, full ROM Foot/toe exam: Present: normal inspection, full ROM Neurovascular/Tendon exam: Absent: motor deficit, sensory deficit, tendon deficit - Back Exam Back exam: Present: normal inspection, full ROM. Absent: tenderness - Neurological Exam Neurological exam: Present: alert, oriented X3 - Expanded Neurological Exam Patient oriented to: Present: person, place, time Coma Scale Eye Opening: Spontaneous Coma Scale Motor Response: Obeys Commands Coma Scale Verbal Response: Oriented Coma Scale Total: 15 - Psychiatric Psychiatric exam: Present: normal affect, normal mood - Skin Skin exam: Present: warm, dry, intact, normal color Course Vital Signs Temperature 97.5 F L 05/10/16 15:12 Pulse Rate 104 05/10/16 15:12 Respiratory Rate 19 05/10/16 15:12 Blood Pressure 124/79 05/10/16 15:12 O2 Sat by Pulse Oximetry 96 05/10/16 15:12 Temperature 97.5 F L 05/10/16 15:12 Pulse Rate 111 05/10/16 18:26 Respiratory Rate 18 05/10/16 18:26 Blood Pressure 156/102 05/10/16 18:26 O2 Sat by Pulse Oximetry 98 05/10/16 18:26 Oxygen Delivery Oxygen Delivery Room Air Urogenital-Female - Differential Diagnosis Likely: urinary tract infection, ovarian cyst, cystitis - Medical Records Medical records reviewed: Yes I reviewed the patient's medical records. - Lab Data Lab results reviewed: Yes I reviewed the patient's lab results. Result diagrams: 05/10/16 16:50 05/10/16 16:50 Lab Results 05/10/16 05/10/16 05/10/16 Range/Units 16:50 16:50 16:50 WBC 6.3 (4.3-11.1) K/mcL RBC 4.24 (3.82-4.97) M/mcL Hgb 13.0 (11.5-15.4) g/dL Hct 39.3 (35.3-44.9) % MCV 92.7 (83.0-100.0) fL MCH 30.7 (28.0-33.3) pg MCHC 33.1 (31.6-35.5) g/dL RDW 16.6 H (11.5-14.5) % Plt Count 290 (140-400) K/mcL MPV 10.3 (9.4-12.4) fL Immature Gran % 0.3 (0-4) % Seg Neutrophils % 64.2 % Lymphocytes % 23.8 % Monocytes % 8.8 % Eosinophils % 2.4 % Basophils % 0.5 % Neutrophils # 4.1 (1.6-8.9) K/mcL Lymphocytes # 1.5 (0.6-4.6) K/mcL Monocytes # 0.6 (0.0-1.3) K/mcL Eosinophils # 0.2 (0.0-0.6) K/mcL Basophils # 0.0 (0.0-0.2) K/mcL PT 14.2 H (9.4-12.1) Seconds INR 1.3 APTT 64.9 H (26.0-36.0) Seconds Sodium 137 (136-145) mEq/L Potassium 3.5 (3.5-4.5) mEq/L Chloride 101 (98-109) mEq/L Carbon Dioxide 23 (19-29) mEq/L BUN 10 (7-20) mg/dL Creatinine 0.72 (0.57-1.11) mg/dL Est GFR ( Amer) > 60 (> 60) Est GFR (Non-Af Amer) > 60 (> 60) BUN/Creatinine Ratio 14 (6-26) Glucose 168 H (70-99) mg/dL Calculated Osmolality 287 (280-300) Calcium 8.4 L (8.6-10.8) mg/dL Total Bilirubin 0.5 (0.2-1.2) mg/dL Direct Bilirubin 0.3 (0.0-0.5) mg/dL Indirect Bilirubin 0.2 (0.0-1.2) mg/dL AST 12 (5-34) Units/L ALT 9 (0-55) Units/L Alkaline Phosphatase 55 (38-126) Units/L Serum Total Protein 6.4 (6.0-8.3) g/dL Albumin 2.8 L (3.5-5.0) g/dL Globulin 3.6 H (2.4-3.5) g/dL Albumin/Globulin Ratio 0.8 L (1.1-2.2) Amylase 96 (25-125) Units/L Lipase 43 (8-78) Units/L Urine Color (Yellow) Urine Clarity (Clear) Urine pH (5.0-8.0) pH Units Ur Specific [place] (1.010-1.025) Urine Protein (Neg-Trace) mg/dL Urine Glucose (UA) (Normal) mg/dL Urine Ketones (Negative) mg/dL Urine Blood (Negative) Urine Nitrite (Negative) Urine Bilirubin (Negative) Urine Urobilinogen (Normal) mg/dL Ur Leukocyte Esterase (Negative) Urine Microscopic RBC (0-3) per hpf Urine Microscopic WBC (0-3) per hpf Ur Squamous Epith Cells (None-Few) per lpf Calcium Oxalate Crystal Urine Bacteria (None-Few) per hpf Hyaline Casts (None-Few) per lpf Ur Culture Indicated? (NO) 05/10/16 Range/Units 18:48 WBC (4.3-11.1) K/mcL RBC (3.82-4.97) M/mcL Hgb (11.5-15.4) g/dL Hct (35.3-44.9) % MCV (83.0-100.0) fL MCH (28.0-33.3) pg MCHC (31.6-35.5) g/dL RDW (11.5-14.5) % Plt Count (140-400) K/mcL MPV (9.4-12.4) fL Immature Gran % (0-4) % Seg Neutrophils % % Lymphocytes % % Monocytes % % Eosinophils % % Basophils % % Neutrophils # (1.6-8.9) K/mcL Lymphocytes # (0.6-4.6) K/mcL Monocytes # (0.0-1.3) K/mcL Eosinophils # (0.0-0.6) K/mcL Basophils # (0.0-0.2) K/mcL PT (9.4-12.1) Seconds INR APTT (26.0-36.0) Seconds Sodium (136-145) mEq/L Potassium (3.5-4.5) mEq/L Chloride (98-109) mEq/L Carbon Dioxide (19-29) mEq/L BUN (7-20) mg/dL Creatinine (0.57-1.11) mg/dL Est GFR ( Amer) (> 60) Est GFR (Non-Af Amer) (> 60) BUN/Creatinine Ratio (6-26) Glucose (70-99) mg/dL Calculated Osmolality (280-300) Calcium (8.6-10.8) mg/dL Total Bilirubin (0.2-1.2) mg/dL Direct Bilirubin (0.0-0.5) mg/dL Indirect Bilirubin (0.0-1.2) mg/dL AST (5-34) Units/L ALT (0-55) Units/L Alkaline Phosphatase (38-126) Units/L Serum Total Protein (6.0-8.3) g/dL Albumin (3.5-5.0) g/dL Globulin (2.4-3.5) g/dL Albumin/Globulin Ratio (1.1-2.2) Amylase (25-125) Units/L Lipase (8-78) Units/L Urine Color Yellow (Yellow) Urine Clarity Clear (Clear) Urine pH 7.0 (5.0-8.0) pH Units Ur Specific [place] 1.025 (1.010-1.025) Urine Protein Trace (Neg-Trace) mg/dL Urine Glucose (UA) 100 H (Normal) mg/dL Urine Ketones Trace H (Negative) mg/dL Urine Blood Negative (Negative) Urine Nitrite Positive A (Negative) Urine Bilirubin Negative (Negative) Urine Urobilinogen Normal (Normal) mg/dL Ur Leukocyte Esterase Trace H (Negative) Urine Microscopic RBC 0-3 (0-3) per hpf Urine Microscopic WBC 0-3 (0-3) per hpf Ur Squamous Epith Cells Few (None-Few) per lpf Calcium Oxalate Crystal Present Urine Bacteria None Seen (None-Few) per hpf Hyaline Casts None Seen (None-Few) per lpf Ur Culture Indicated? YES A (NO) - Radiology Data Radiology results reviewed: Yes I reviewed the patient's radiology results.
[2016-05-10] MEDS ORDERED: Ondansetron 4 MG/2 ML VIAL IV ONE (16:18)
[2016-05-10 17:06] LABS: Basophils % 0.5 %; Eosinophils # 0.2 K/mcL (0.0-0.6); Eosinophils % 2.4 %; Hematocrit 39.3 % (35.3-44.9); Immature Granulocytes % 0.3 % (0-4); Lymphocytes # 1.5 K/mcL (0.6-4.6); Lymphocytes % 23.8 %; Mean Corpuscular HGB Conc 33.1 g/dL (31.6-35.5); Mean Corpuscular Hemoglobin 30.7 pg (28.0-33.3); Mean Corpuscular Volume 92.7 fL (83.0-100.0); Mean Platelet Volume 10.3 fL (9.4-12.4); Monocytes # 0.6 K/mcL (0.0-1.3); Monocytes % 8.8 %; Neutrophils # 4.1 K/mcL (1.6-8.9); Platelet Count 290 K/mcL (140-400); Red Blood Count 4.24 M/mcL (3.82-4.97); Red Cell Distribution Width 16.6 % (11.5-14.5); Segmented Neutrophils % 64.2 %
[2016-05-10 17:08] LABS: INR 1.3; Prothrombin Time 14.2 Seconds (9.4-12.1)
[2016-05-10 17:11] LABS: Activated Partial Thrombo Time 64.9 Seconds (26.0-36.0)
[2016-05-10 17:17] LABS: Alanine Aminotransferase 9 Units/L (0-55); Albumin 2.8 g/dL (3.5-5.0); Albumin/Globulin Ratio 0.8 (1.1-2.2); Alkaline Phosphatase 55 Units/L (38-126); Amylase 96 Units/L (25-125); Aspartate Amino Transferase 12 Units/L (5-34); BUN/Creatinine Ratio 14 (6-26); Bilirubin,Direct 0.3 mg/dL (0.0-0.5); Bilirubin,Indirect 0.2 mg/dL (0.0-1.2); Bilirubin,Total 0.5 mg/dL (0.2-1.2); Blood Urea Nitrogen 10 mg/dL (7-20); Calcium 8.4 mg/dL (8.6-10.8); Carbon Dioxide 23 mEq/L (19-29); Chloride 101 mEq/L (98-109); Globulin 3.6 g/dL (2.4-3.5); Glucose 168 mg/dL (70-99); Lipase 43 Units/L (8-78); Osmolality,Calculated 287 (280-300); Potassium 3.5 mEq/L (3.5-4.5); Sodium 137 mEq/L (136-145); Total Protein 6.4 g/dL (6.0-8.3); eGFR For African Americans > 60 (> 60); eGFR For Non-African Americans > 60 (> 60)
[2016-05-10] MEDS ORDERED: Ondansetron 4 MG/2 ML VIAL IVP ONE (18:53)
[2016-05-10 18:58] LABS: Bilirubin,Urine Negative (Negative); Blood,Urine Negative (Negative); Clarity,Urine Clear (Clear); Color,Urine Yellow (Yellow); Glucose,Urine (UA) 100 mg/dL (Normal); Ketones,Urine Trace mg/dL (Negative); Leukocyte Esterase,Urine Trace (Negative); Nitrite,Urine Positive (Negative); Protein,Urine Trace mg/dL (Neg-Trace); Specific Gravity,Urine 1.025 (1.010-1.025); Urobilinogen,Urine Normal (Normal)
[2016-05-10 19:05] LABS: Calcium Oxalate Crystals,Urine Present; Hyaline Casts,Urine None Seen per lpf (None-Few); RBC,Urine 0-3 per hpf (0-3); Squamous Epithelial Cell,Urine Few per lpf (None-Few); WBC,Urine 0-3 per hpf (0-3)
[2016-05-10 19:06] LABS: Bacteria,Urine None Seen per hpf (None-Few)
[2016-05-10] MEDS ORDERED: Naloxone 0.4 MG/ML INJ IVP PRN (21:13)
[2016-05-10] MEDS ORDERED: Ondansetron 4 MG/2 ML VIAL IVP PRN (21:13)
[2016-05-10] MEDS ORDERED: 0.9 % Sodium Chloride 1,000 ML IVC SCH (21:15)
[2016-05-10] MEDS ORDERED: Dextrose Gel 15 GM PO PRN ×2 (21:19)
[2016-05-10] MEDS ORDERED: D5% in Water 1,000 ML IV PRN (21:19)
[2016-05-10] MEDS ORDERED: *HR* Dextrose 50 % in Water (Syg) 50 ML SYRINGE IVP PRN (21:19)
--- NOTE | 2016-05-10 22:09 | Internal Med History&Physical ---
<Jacinta Johnson M - Last Filed: 05/10/16 23:47> Date of Encounter: 05/10/16 Time of Encounter: 22:03 Assessment and Plan (1) UTI (urinary tract infection) Current visit: Yes Status: Acute Patient with dysuria, frequency for the last week and now hematuria, nausea and vomiting for the last 2 days. She was put on Macrobid by her PCP on 05/05, but her symptoms have not improved. CT abdomen showed no evidence of obstructive uropathy. Rocephin IVPB daily IVP zofran PRN for nausea IV fluids 0.9NS at 75mL/hr Await urine culture Qualifiers: Urinary tract infection type: acute cystitis Hematuria presence: with hematuria Qualified Code(s): N30.01 - Acute cystitis with hematuria (2) Nausea & vomiting Current visit: Yes Status: Acute Patient with nausea and vomiting today. She reports poor appetite and nausea over the last week. IVP Zofran PRN Qualifiers: Vomiting type: cyclical vomiting Vomiting Intractability: non-intractable Qualified Code(s): G43.A0 - Cyclical vomiting, not intractable (3) Failure of outpatient treatment Current visit: Yes Status: Acute (4) Afib Current visit: No Status: Chronic Patient with history of Afib. Patient has pacemaker in place for tachy-jossue syndrome. Continue Pradaxa for anticoagulation. Continue Metoprolol for rate control. Qualifiers: Atrial fibrillation type: chronic Qualified Code(s): I48.2 - Chronic atrial fibrillation (5) DM (diabetes mellitus), type 2 Current visit: No Status: Chronic Hold po metformin check blood sugars ACHS sliding scale correction dose insulin ACHS hypoglycemic protocol. Qualifiers: Diabetes mellitus complication status: without complication Diabetes mellitus keno terminal operator insulin use: without jail use Qualified Code(s): E11.9 - Type 2 diabetes mellitus without complications (6) DVT prophylaxis Current visit: No Status: Acute Encourage ambulation anti-embolic stockings Patient on Pradaxa for anti-coagulation, additional pharmacologic prophylaxis is contraindicated. Internal Medicine - H&P: HPI Chief complaint: dysuria Admitted From: Emergency Dept Plans for Post Hospital Care: Home History of present illness: Ms. Bolaños is a 85 year old female with hypertension, type 2 diabetes, hyperlipidemia, atrial fibrillation, rheumatoid arthritis, history of CVA who presented to the emergency department with complaints of pain with urination, blood in her urine, frequency, nausea vomiting, weakness, chills. She was seen by her primary care provider last week and diagnosed with UTI and given an oral course of Macrobid which she has almost completed. She denies any chest pain, palpitations, shortness of breath, cough, fever. Evaluation in the emergency department included a urinalysis which showed positive nitrites and leuk trase. CT of her abdomen and pelvis showed no evidence of obstructive uropathy, also revealed diverticulosis without evidence of diverticulitis, and bilateral renal cysts. WBC was normal at 6.3. Vital signs stable. On exam, patient is alert and oriented, in no acute distress. Heart has irregular rhythm, with normal rate. Lungs are clear bilaterally to auscultation. Abdomen is nontender. Past Med Surg Social Fam HX - Past Medical History Medical history: atrial fibrillation, CVA, diabetes, GERD, hyperlipidemia, hypertension, RA, other Psychiatric history: no psych history - Past Surgical History Surgical History: cholecystectomy, other, pacemaker - Social History Smoking Status: Never smoker Smokeless Tobacco Status: No Alcohol use: none Drug use: none - Family History Sister Hx Family Cardiac Disorders: Yes Hx Family Endocrine Disorder: Yes Father Hx Family Cardiac Disorders: Yes (heart attack) Mother Hx Family Cardiac Disorders: Yes (HTN) Brother Adopted: No Family Member Ethnicity: Non- Living Status: Hx Family Cardiac Disorders: Yes (open heart surgery) Hx Family Respiratory Disorders: No Hx Family Cancer: No Hx Family GI Disorders: No Hx Family Endocrine Disorder: No Hx Family Neuromuscular Disorders: No Hx Family HEENT Disorders: No Hx Family Autoimmune Disorders: No Internal Medicine - H&P: Meds FLUoxetine HCl [Prozac] 40 mg PO QAM 12/01/14 [History] Metformin HCl [Fortamet] 500 mg PO BID 12/01/14 [History] Dabigatran [Pradaxa] 150 mg PO BID #60 capsule 01/22/15 [Rx] Diltiazem CD (24hr) [Cardizem CD] 240 mg PO QAM 05/10/15 [History] Isosorbide MONOnitrate (24 HR) [Imdur] 90 mg PO QAM 05/10/15 [History] Sulfasalazine [Azulfidine] 1,000 mg PO BID 08/12/15 [History] Nitrofurantoin (BID) [Macrobid] 100 mg PO BID #20 capsule 05/05/16 [Rx] Metoprolol [Lopressor] 25 mg PO BID 05/10/16 [History] Simvastatin [Zocor] 40 mg PO HS 05/10/16 [History] Allergies No Known Allergies Allergy (Verified 05/10/16 15:17) All Systems PM: A 10-system review of systems was performed and is negative for pertinent findings except as documented above in the HPI. - Constitutional Constitutional: chills, no fever(s), no night sweats - EENT Eyes: no change in vision, no discharge, no pain, no photophobia Nose, mouth and throat: no dysphagia, no nasal discharge, no neck pain, no sore throat - Cardiovascular Cardiovascular ROS IM: no chest pain, no diaphoresis, no dyspnea, no lightheadedness, no palpitations, no syncope - Respiratory Respiratory: no cough, no dyspnea, no wheezing, no excessive phlegm production - Gastrointestinal Gastrointestinal: constipation, no abdominal pain, no diarrhea, no hematemesis, no hematochezia, no melena, no nausea, no vomiting - Genitourinary Genitourinary: dysuria, hematuria, urinary frequency, no change in urinary stream, no flank pain - Musculoskeletal Musculoskeletal ROS IM: no numbness, no tingling - Integumentary Integumentary IM: no rash, no unusual bruising - Neurological Neurological ROS: no confusion, no convulsions, no focal weakness, no numbness, no tingling, no tremor(s) - Hematologic/Lymphatic Hematologic/Lymphatic: easy bruising - Constitutional Vitals: Temp Pulse Resp BP Pulse Ox 98.0 F 116 16 148/86 95 05/10/16 20:51 05/10/16 20:51 05/10/16 20:51 05/10/16 20:51 05/10/16 20:51 General appearance: Present: A&O X 3, pleasant, no acute distress - Head Head exam: Present: atraumatic, normocephalic - Eye Eye exam: Present: PERRL, conjuntiva pink, sclera anicteric Pupils: Present: PERRL - Neck Neck exam general surgery: Present: supple, trachea midline. Absent: lymphadenopathy - Respiratory Respiratory exam: Present: CTAB. Absent: accessory muscle use, rales, rhonchi, wheezes - Cardiovascular Cardiovascular exam: Present: RRR, +S1, +S2. Absent: diastolic murmur, gallop, rubs, systolic murmur - GI/Abdominal GI/Abdominal exam: Present: normal bowel sounds, soft, no peritoneal signs. Absent: distended, tenderness - Extremities Exam Extremities exam: Present: warm, radial pulses palpable and symetrical. Absent : calf tenderness, cyanotic, pedal edema - Neurological Exam Neurological exam: Present: CN II-XII intact, oriented X3, no focal deficits. Absent: facial droop, speech deficit - Skin Skin exam: Present: dry, intact Internal Med - H&P Results - Labs CBC & Chem 7: 05/10/16 16:50 05/10/16 16:50 Labs: All Lab Results (24 Hours) 05/10/16 05/10/16 05/10/16 Range/Units 16:50 16:50 16:50 WBC 6.3 (4.3-11.1) K/mcL RBC 4.24 (3.82-4.97) M/mcL Hgb 13.0 (11.5-15.4) g/dL Hct 39.3 (35.3-44.9) % MCV 92.7 (83.0-100.0) fL MCH 30.7 (28.0-33.3) pg MCHC 33.1 (31.6-35.5) g/dL RDW 16.6 H (11.5-14.5) % Plt Count 290 (140-400) K/mcL MPV 10.3 (9.4-12.4) fL Immature Gran % 0.3 (0-4) % Seg Neutrophils % 64.2 % Lymphocytes % 23.8 % Monocytes % 8.8 % Eosinophils % 2.4 % Basophils % 0.5 % Neutrophils # 4.1 (1.6-8.9) K/mcL Lymphocytes # 1.5 (0.6-4.6) K/mcL Monocytes # 0.6 (0.0-1.3) K/mcL Eosinophils # 0.2 (0.0-0.6) K/mcL Basophils # 0.0 (0.0-0.2) K/mcL PT 14.2 H (9.4-12.1) Seconds INR 1.3 APTT 64.9 H (26.0-36.0) Seconds Sodium 137 (136-145) mEq/L Potassium 3.5 (3.5-4.5) mEq/L Chloride 101 (98-109) mEq/L Carbon Dioxide 23 (19-29) mEq/L BUN 10 (7-20) mg/dL Creatinine 0.72 (0.57-1.11) mg/dL Est GFR ( Amer) > 60 (> 60) Est GFR (Non-Af Amer) > 60 (> 60) BUN/Creatinine Ratio 14 (6-26) Glucose 168 H (70-99) mg/dL Calculated Osmolality 287 (280-300) Calcium 8.4 L (8.6-10.8) mg/dL Total Bilirubin 0.5 (0.2-1.2) mg/dL Direct Bilirubin 0.3 (0.0-0.5) mg/dL Indirect Bilirubin 0.2 (0.0-1.2) mg/dL AST 12 (5-34) Units/L ALT 9 (0-55) Units/L Alkaline Phosphatase 55 (38-126) Units/L Serum Total Protein 6.4 (6.0-8.3) g/dL Albumin 2.8 L (3.5-5.0) g/dL Globulin 3.6 H (2.4-3.5) g/dL Albumin/Globulin Ratio 0.8 L (1.1-2.2) Amylase 96 (25-125) Units/L Lipase 43 (8-78) Units/L Ur Specimen Adequacy Urine Color (Yellow) Urine Clarity (Clear) Urine pH (5.0-8.0) pH Units Ur Specific [place] (1.010-1.025) Urine Protein (Neg-Trace) mg/dL Urine Glucose (UA) (Normal) mg/dL Urine Ketones (Negative) mg/dL Urine Blood (Negative) Urine Nitrite (Negative) Urine Bilirubin (Negative) Urine Urobilinogen (Normal) mg/dL Ur Leukocyte Esterase (Negative) Urine Microscopic RBC (0-3) per hpf Urine Microscopic WBC (0-3) per hpf Ur Squamous Epith Cells (None-Few) per lpf Calcium Oxalate Crystal Urine Bacteria (None-Few) per hpf Hyaline Casts (None-Few) per lpf Ur Culture Indicated? (NO) 05/10/16 Range/Units 18:48 WBC (4.3-11.1) K/mcL RBC (3.82-4.97) M/mcL Hgb (11.5-15.4) g/dL Hct (35.3-44.9) % MCV (83.0-100.0) fL MCH (28.0-33.3) pg MCHC (31.6-35.5) g/dL RDW (11.5-14.5) % Plt Count (140-400) K/mcL MPV (9.4-12.4) fL Immature Gran % (0-4) % Seg Neutrophils % % Lymphocytes % % Monocytes % % Eosinophils % % Basophils % % Neutrophils # (1.6-8.9) K/mcL Lymphocytes # (0.6-4.6) K/mcL Monocytes # (0.0-1.3) K/mcL Eosinophils # (0.0-0.6) K/mcL Basophils # (0.0-0.2) K/mcL PT (9.4-12.1) Seconds INR APTT (26.0-36.0) Seconds Sodium (136-145) mEq/L Potassium (3.5-4.5) mEq/L Chloride (98-109) mEq/L Carbon Dioxide (19-29) mEq/L BUN (7-20) mg/dL Creatinine (0.57-1.11) mg/dL Est GFR ( Amer) (> 60) Est GFR (Non-Af Amer) (> 60) BUN/Creatinine Ratio (6-26) Glucose (70-99) mg/dL Calculated Osmolality (280-300) Calcium (8.6-10.8) mg/dL Total Bilirubin (0.2-1.2) mg/dL Direct Bilirubin (0.0-0.5) mg/dL Indirect Bilirubin (0.0-1.2) mg/dL AST (5-34) Units/L ALT (0-55) Units/L Alkaline Phosphatase (38-126) Units/L Serum Total Protein (6.0-8.3) g/dL Albumin (3.5-5.0) g/dL Globulin (2.4-3.5) g/dL Albumin/Globulin Ratio (1.1-2.2) Amylase (25-125) Units/L Lipase (8-78) Units/L Ur Specimen Adequacy See below A Urine Color Yellow (Yellow) Urine Clarity Clear (Clear) Urine pH 7.0 (5.0-8.0) pH Units Ur Specific [place] 1.025 (1.010-1.025) Urine Protein Trace (Neg-Trace) mg/dL Urine Glucose (UA) 100 H (Normal) mg/dL Urine Ketones Trace H (Negative) mg/dL Urine Blood Negative (Negative) Urine Nitrite Positive A (Negative) Urine Bilirubin Negative (Negative) Urine Urobilinogen Normal (Normal) mg/dL Ur Leukocyte Esterase Trace H (Negative) Urine Microscopic RBC 0-3 (0-3) per hpf Urine Microscopic WBC 0-3 (0-3) per hpf Ur Squamous Epith Cells Few (None-Few) per lpf Calcium Oxalate Crystal Present Urine Bacteria None Seen (None-Few) per hpf Hyaline Casts None Seen (None-Few) per lpf Ur Culture Indicated? YES A (NO) - Diagnostic Studies CT scan - abdomen Additional comments: Abdomen/Pelvis CT 05/10/16 16:57 IMPRESSION: 1. No evidence of obstructive uropathy. 2. Diverticulosis without evidence of diverticulitis. 3. Bilateral renal cysts, largest measuring up to 7.5 cm on the right. D/ / 05/10/2016 17:27:25 Lala Caruso MD / marilynn Interpreting Provider: Lala Caruso MD <Javier Panchal R - Last Filed: 05/11/16 04:00> Internal Medicine - H&P: HPI History of present illness: Ms. Bolaños is a 85 year old female All Systems PM: A 10-system review of systems was performed and is negative for pertinent findings except as documented above in the HPI. - Constitutional Vitals: Temp Pulse Resp BP Pulse Ox 97.7 F 117 16 162/69 97 05/10/16 23:43 05/10/16 23:43 05/10/16 23:43 05/10/16 23:43 05/10/16 23:43 Internal Med - H&P Results - Labs CBC & Chem 7: 05/10/16 16:50 05/10/16 16:50 - Attending Attestation I evaluated the patient and my medical decision-making was reviewed with the SAFETY RELIEF VALVE TECHNICIAN/ Advanced Practice Nurse. I agree with the documented findings, disposition and treatment plan as described except to the extent set forth below. 85 year old female with hypertension, type 2 diabetes, hyperlipidemia, atrial fibrillation, rheumatoid arthritis. She was apparently treated with Macrobid for about 6 days for urinary tract infection. She presented to the emergency department with dysuria, blood in her urine, frequency, nausea vomiting. Urinalysis in the emergency department was abnormal. O/E: No renal angle or abdominal tenderness. UTI with failed outpatient therapy: Empirically treat with ceftriaxone. Urine cultures pending.
[2016-05-11] MEDS: *HR* Dabigatran 150 MG CAPSULE PO SCH ×3 (00:31→20:46)
[2016-05-11] MEDS: sulfaSALAzine 500 MG TABLET PO SCH ×3 (00:31→20:45)
[2016-05-11] MEDS ORDERED: *HR* Promethazine 25 MG/ML VIAL IVP ONE (03:51)
[2016-05-11 04:48] LABS: Basophils % 0.3 %; Eosinophils # 0.1 K/mcL (0.0-0.6); Eosinophils % 1.8 %; Hematocrit 35.9 % (35.3-44.9); Hemoglobin 11.9 g/dL (11.5-15.4); Immature Granulocytes % 0.3 % (0-4); Lymphocytes # 1.3 K/mcL (0.6-4.6); Mean Corpuscular HGB Conc 33.1 g/dL (31.6-35.5); Mean Corpuscular Hemoglobin 29.9 pg (28.0-33.3); Mean Corpuscular Volume 90.2 fL (83.0-100.0); Mean Platelet Volume 10.2 fL (9.4-12.4); Monocytes # 0.5 K/mcL (0.0-1.3); Monocytes % 9.1 %; Platelet Count 282 K/mcL (140-400); Red Blood Count 3.98 M/mcL (3.82-4.97); Red Cell Distribution Width 16.3 % (11.5-14.5); Segmented Neutrophils % 67.5 %
[2016-05-11 04:59] LABS: BUN/Creatinine Ratio 14 (6-26); Blood Urea Nitrogen 9 mg/dL (7-20); Calcium 7.8 mg/dL (8.6-10.8); Carbon Dioxide 23 mEq/L (19-29); Chloride 105 mEq/L (98-109); Glucose 184 mg/dL (70-99); Osmolality,Calculated 287 (280-300); Potassium 3.2 mEq/L (3.5-4.5); Sodium 137 mEq/L (136-145); eGFR For African Americans > 60 (> 60); eGFR For Non-African Americans > 60 (> 60)
[2016-05-11] MEDS: FLUoxetine 20 MG CAPSULE PO SCH (08:49)
[2016-05-11] MEDS: Isosorbide MONOnitrate (24 HR) 60 MG TAB.ER.24H PO SCH (08:49)
[2016-05-11] MEDS: Diltiazem CD (24hr) 240 MG CAPSULE PO SCH (08:49)
[2016-05-11] MEDS: Insulin LISPRO 300 UNITS/3 ML VIAL SQ SCH ×4 (08:58→20:44)
--- NOTE | 2016-05-11 12:16 | Electrocardiograph Report ---
[address] [place], [place] [address] Test Date: 2016-05-11 Pat Name: Ariella Bolaños Department: 113 Room: 3B41 Gender: F Medical Dir: : 1930 Requested By: Jacinta Johnson Order Number: [id number] Reading MD: Roni Melton MD Measurements Intervals [place] Rate: 88 P: [place]: 0 QRS: 184 QRSD: 92 T: 228 QT: 403 QTc: 449 Interpretive Statements ATRIAL FIBRILLATION ARM LEADS REVERSED Electronically Signed On 05-11-2016 12:14:31 EST by Roni Melton MD
--- NOTE | 2016-05-11 15:02 | Internal Med Progress Note ---
<Niyah Henry - Last Filed: 05/11/16 14:59> Date of Encounter: 05/11/16 Time of Encounter: 10:00 - Assessment and plan (1) UTI (urinary tract infection) Current Visit: Yes Status: Acute Assessment and plan: Patient initially presented with dysuria. Today, she denies hematuria, nausea, vomiting, flank or suprapubic pain to tenderness upon examination. She was prescribed macrobid by per PCP, but her symptoms did not improve. Urinalysis signficant for infection. CT A/P showed no evidence of obstructive uropathy, did show diverticulosis without diverticulitis and bilateral renal cysts. Ceftriaxone day 2. Zofran PRN for nausea URine culture preliminary grew gram negative rods. final result pending. of note, past urine culture from 11/30/14 grew staphylococcus hominis Qualifiers: Urinary tract infection type: acute cystitis Hematuria presence: with hematuria Qualified Code(s): N30.01 - Acute cystitis with hematuria (2) Failure of outpatient treatment Current Visit: Yes Status: Acute Assessment and plan: Patient was treated outpatient for UTI, but failed treatment. Plan as above. (3) Nausea & vomiting Current Visit: Yes Status: Acute Assessment and plan: resolved. Zofran PRN continue to monitor. Qualifiers: Vomiting type: cyclical vomiting Vomiting Intractability: non-intractable Qualified Code(s): G43.A0 - Cyclical vomiting, not intractable (4) Afib Current Visit: No Status: Chronic Assessment and plan: patient has pacemaker in place for tachy-jossue syndrome. Continue Pradaxa, Cardizem. Qualifiers: Atrial fibrillation type: chronic Qualified Code(s): I48.2 - Chronic atrial fibrillation (5) DM (diabetes mellitus), type 2 Current Visit: No Status: Chronic Assessment and plan: Patient's last A1C was 5.0 on 12/08/15 but she is on metformin at home. Holding Metformin, low dose sliding scale with ACHS accuchecks. Diabetic diet with Ensure High protein TID. Consult to nutrition for recommendations. Will re check A1C with tomorrow's morning labs. If low, may consider discontinuing metformin live out nanny. Qualifiers: Diabetes mellitus complication status: without complication Diabetes mellitus assisted insulin use: without live out nanny use Qualified Code(s): E11.9 - Type 2 diabetes mellitus without complications (6) DVT prophylaxis Current Visit: No Status: Acute Assessment and plan: Continue with Pradaxa. Anti embolic stockings Ambulate TID - Subjective Interval history: 85 year old female evaluated at bedside. She was laying in bed and sleeping before examination. SHe denies nausea, vomiting, diarrhea, fever, chills. She denies chest pain. She also denies pain with urination and suprapubic/flank tenderness. Patient is alert and oriented x3, was in no acute distress. - Constitutional Vitals: Temp Pulse Resp BP Pulse Ox 98.1 F 61 16 135/79 97 05/11/16 11:06 05/11/16 11:06 05/11/16 11:06 05/11/16 11:06 05/11/16 11:06 General appearance: Present: A&O X 3, pleasant, no acute distress, answers questions appropriately - Head Head exam: Present: atraumatic, normocephalic - Neck Neck exam general surgery: Present: supple, trachea midline - Respiratory Respiratory exam: Present: CTAB - Cardiovascular Cardiovascular exam: Present: irregular rhythm - GI/Abdominal GI/Abdominal exam: Present: normal bowel sounds, soft. Absent: distended, tenderness Additional comments: no suprapubic or flank tenderness to deep palpation. - Extremities Exam Extremities exam: Absent: cyanotic, pedal edema - Neurological Exam Neurological exam: Present: alert, oriented X3, no focal deficits Internal Medicine: Result - Labs CBC & Chem 7: 05/11/16 04:13 05/11/16 04:13 - ABG Interpretation ABG results: PT/INR, D-dimer PT 14.2 Seconds (9.4-12.1) H 05/10/16 16:50 Consult Discharge Plan - Plan Referrals: Rosalinda Green, DISTANCE LEARNING UNIT LEADER [Advanced Practice Nurse] - 05/18/16 9:45 am <Adelso Mehta - Last Filed: 05/11/16 16:24> - Constitutional Vitals: Temp Pulse Resp BP Pulse Ox 97.9 F 94 18 130/91 95 05/11/16 15:43 05/11/16 15:43 05/11/16 15:43 05/11/16 15:43 05/11/16 15:43 Internal Medicine: Result - Labs CBC & Chem 7: 05/11/16 04:13 05/11/16 04:13 - ABG Interpretation ABG results: PT/INR, D-dimer PT 14.2 Seconds (9.4-12.1) H 05/10/16 16:50 - Attending Attestation I examined this patient and my medical decision-making was reviewed with the SHELLFISH MANAGER/PA/Advanced Practice Nurse/Resident Physician. I agree with the documented findings, disposition and treatment plan as described except to the extent set forth below. 85 Y/O F on admission for management of UTI with failed out-patient therapy. Seen at bedside, denies new complains Clinically stable Urine culture prelim GNR. CT with no obstruction, no pyelo, renal cysts Continue antibiotics, check A1C. Continue other management
[2016-05-12 03:59] LABS: Basophils % 0.4 %; Eosinophils # 0.3 K/mcL (0.0-0.6); Eosinophils % 4.2 %; Hematocrit 36.7 % (35.3-44.9); Hemoglobin 12.1 g/dL (11.5-15.4); Immature Granulocytes % 0.3 % (0-4); Lymphocytes # 1.7 K/mcL (0.6-4.6); Lymphocytes % 24.3 %; Mean Corpuscular Hemoglobin 30.5 pg (28.0-33.3); Mean Corpuscular Volume 92.4 fL (83.0-100.0); Mean Platelet Volume 10.3 fL (9.4-12.4); Monocytes # 0.7 K/mcL (0.0-1.3); Monocytes % 9.1 %; Neutrophils # 4.4 K/mcL (1.6-8.9); Platelet Count 262 K/mcL (140-400); Red Blood Count 3.97 M/mcL (3.82-4.97); Red Cell Distribution Width 16.8 % (11.5-14.5); Segmented Neutrophils % 61.7 %
[2016-05-12 04:08] LABS: Hemoglobin A1C 6.5 %
[2016-05-12 04:11] LABS: BUN/Creatinine Ratio 13 (6-26); Blood Urea Nitrogen 9 mg/dL (7-20); Calcium 7.9 mg/dL (8.6-10.8); Carbon Dioxide 23 mEq/L (19-29); Chloride 107 mEq/L (98-109); Glucose 112 mg/dL (70-99); Osmolality,Calculated 285 (280-300); Potassium 3.7 mEq/L (3.5-4.5); Sodium 138 mEq/L (136-145); eGFR For African Americans > 60 (> 60); eGFR For Non-African Americans > 60 (> 60)
[2016-05-12] MEDS: sulfaSALAzine 500 MG TABLET PO SCH ×2 (09:03→20:32)
[2016-05-12] MEDS: Insulin LISPRO 300 UNITS/3 ML VIAL SQ SCH ×4 (09:03→20:23)
[2016-05-12] MEDS: FLUoxetine 20 MG CAPSULE PO SCH (09:03)
[2016-05-12] MEDS: Diltiazem CD (24hr) 240 MG CAPSULE PO SCH (09:03)
[2016-05-12] MEDS: Isosorbide MONOnitrate (24 HR) 60 MG TAB.ER.24H PO SCH (09:03)
[2016-05-12] MEDS: *HR* Dabigatran 150 MG CAPSULE PO SCH ×2 (09:03→20:33)
--- NOTE | 2016-05-12 10:20 | Internal Med Progress Note ---
<Niyah Henry - Last Filed: 05/12/16 10:17> Date of Encounter: 05/12/16 Time of Encounter: 09:00 - Assessment and plan (1) UTI (urinary tract infection) Current Visit: Yes Status: Acute Assessment and plan: Patient initially presented with dysuria. she denies hematuria, nausea, vomiting , flank or suprapubic pain to tenderness upon examination. She was prescribed macrobid by per PCP, but her symptoms did not improve. Urinalysis signficant for infection. CT A/P showed no evidence of obstructive uropathy, did show diverticulosis without diverticulitis and bilateral renal cysts. Ceftriaxone day 3. Zofran PRN for nausea URine culture preliminary grew gram negative rods. final result pending. of note, past urine culture from 11/30/14 grew staphylococcus hominis pending final urine culture. Qualifiers: Urinary tract infection type: acute cystitis Hematuria presence: with hematuria Qualified Code(s): N30.01 - Acute cystitis with hematuria (2) Failure of outpatient treatment Current Visit: Yes Status: Acute Assessment and plan: Patient was treated outpatient for UTI, but failed treatment. Plan as above. (3) Nausea & vomiting Current Visit: Yes Status: Acute Assessment and plan: resolved. Zofran PRN continue to monitor. Qualifiers: Vomiting type: cyclical vomiting Vomiting Intractability: non-intractable Qualified Code(s): G43.A0 - Cyclical vomiting, not intractable (4) Afib Current Visit: No Status: Chronic Assessment and plan: patient has pacemaker in place for tachy-jossue syndrome. Continue Pradaxa, Cardizem. Qualifiers: Atrial fibrillation type: chronic Qualified Code(s): I48.2 - Chronic atrial fibrillation (5) DM (diabetes mellitus), type 2 Current Visit: No Status: Chronic Assessment and plan: Holding Metformin, low dose sliding scale with ACHS accuchecks. Diabetic diet with Ensure High protein TID. Consult to nutrition for recommendations. Repeat A1C was 6.5. Qualifiers: Diabetes mellitus complication status: without complication Diabetes mellitus terminologist insulin use: without terminologist use Qualified Code(s): E11.9 - Type 2 diabetes mellitus without complications (6) DVT prophylaxis Current Visit: No Status: Acute Assessment and plan: Continue with Pradaxa. Anti embolic stockings Ambulate TID - Subjective Interval history: 85 year old female evaluated at bedside. She was sitting up in bed eating breakafast before examination. Patient denies nausea, vomiting, diarrhea, fever chills. Patient has no dysuria, suprapubic pain or pelvic pain. Per nursing staff, there were no acute events overnight. - Constitutional Vitals: Temp Pulse Resp BP Pulse Ox 97.5 F L 114 16 144/101 96 05/12/16 07:54 05/12/16 07:54 05/12/16 07:54 05/12/16 07:54 05/12/16 09:05 General appearance: Present: A&O X 3, pleasant, no acute distress, answers questions appropriately - Head Head exam: Present: atraumatic, normocephalic - Neck Neck exam general surgery: Present: supple, trachea midline - Respiratory Additional comments: mild bibasilar rales noted. - Cardiovascular Cardiovascular exam: Present: tachycardia - GI/Abdominal GI/Abdominal exam: Present: normal bowel sounds, soft. Absent: guarding, tenderness - Extremities Exam Extremities exam: Absent: cyanotic, pedal edema - Neurological Exam Neurological exam: Present: alert, oriented X3, no focal deficits - Skin Skin exam: Absent: cyanosis Internal Medicine: Result - Labs CBC & Chem 7: 05/12/16 03:41 05/12/16 03:41 Labs: Short CBC 05/12/16 Range/Units 03:41 WBC 7.2 (4.3-11.1) K/mcL Hgb 12.1 (11.5-15.4) g/dL Hct 36.7 (35.3-44.9) % Plt Count 262 (140-400) K/mcL Neutrophils # 4.4 (1.6-8.9) K/mcL BMP 05/12/16 03:41 Sodium 138 Potassium 3.7 Chloride 107 Carbon Dioxide 23 BUN 9 Creatinine 0.70 Glucose 112 H Calcium 7.9 L - ABG Interpretation ABG results: PT/INR, D-dimer PT 14.2 Seconds (9.4-12.1) H 05/10/16 16:50 - VTE Documentation of Mechanical Device: Graduated compression elastic hosiery Consult Discharge Plan - Plan Referrals: Rosalinda Green, BEAVER TRAPPER [Advanced Practice Nurse] - 05/18/16 9:45 am <Adelso Mehta - Last Filed: 05/12/16 13:50> - Constitutional Vitals: Temp Pulse Resp BP Pulse Ox 97.9 F 83 18 124/88 95 05/12/16 11:51 05/12/16 11:51 05/12/16 11:51 05/12/16 11:51 05/12/16 11:51 Internal Medicine: Result - Labs CBC & Chem 7: 05/12/16 03:41 05/12/16 03:41 Labs: Short CBC 05/12/16 Range/Units 03:41 WBC 7.2 (4.3-11.1) K/mcL Hgb 12.1 (11.5-15.4) g/dL Hct 36.7 (35.3-44.9) % Plt Count 262 (140-400) K/mcL Neutrophils # 4.4 (1.6-8.9) K/mcL BMP 05/12/16 03:41 Sodium 138 Potassium 3.7 Chloride 107 Carbon Dioxide 23 BUN 9 Creatinine 0.70 Glucose 112 H Calcium 7.9 L - ABG Interpretation ABG results: PT/INR, D-dimer PT 14.2 Seconds (9.4-12.1) H 05/10/16 16:50 - Attending Attestation I examined this patient and my medical decision-making was reviewed with the CHECK PROCESSOR/PA/Advanced Practice Nurse/Resident Physician. I agree with the documented findings, disposition and treatment plan as described except to the extent set forth below. 85 Y/O F on admission for management of UTI with failed out-patient therapy. Seen at bedside, denies new complains Clinically stable, physical exam unremarkable Urine culture prelim GNR. CT with no obstruction, no pyelo, renal cysts Continue antibiotics, continue sliding scale insulin, A1C noted 6.5 Await final sensitivity Continue other management Rest as per resident's documentation
[2016-05-13 05:19] LABS: Basophils % 0.5 %; Eosinophils # 0.3 K/mcL (0.0-0.6); Eosinophils % 3.6 %; Hematocrit 35.6 % (35.3-44.9); Hemoglobin 11.9 g/dL (11.5-15.4); Immature Granulocytes % 0.3 % (0-4); Lymphocytes # 1.7 K/mcL (0.6-4.6); Lymphocytes % 22.7 %; Mean Corpuscular HGB Conc 33.4 g/dL (31.6-35.5); Mean Corpuscular Hemoglobin 30.7 pg (28.0-33.3); Mean Corpuscular Volume 91.8 fL (83.0-100.0); Mean Platelet Volume 10.4 fL (9.4-12.4); Monocytes # 0.6 K/mcL (0.0-1.3); Monocytes % 7.9 %; Neutrophils # 4.9 K/mcL (1.6-8.9); Platelet Count 260 K/mcL (140-400); Red Blood Count 3.88 M/mcL (3.82-4.97); Red Cell Distribution Width 16.7 % (11.5-14.5)
[2016-05-13 05:44] LABS: BUN/Creatinine Ratio 15 (6-26); Blood Urea Nitrogen 11 mg/dL (7-20); Calcium 7.9 mg/dL (8.6-10.8); Carbon Dioxide 23 mEq/L (19-29); Chloride 107 mEq/L (98-109); Glucose 168 mg/dL (70-99); Osmolality,Calculated 289 (280-300); Potassium 3.6 mEq/L (3.5-4.5); Sodium 138 mEq/L (136-145); eGFR For African Americans > 60 (> 60); eGFR For Non-African Americans > 60 (> 60)
[2016-05-13] MEDS: *HR* Dabigatran 150 MG CAPSULE PO SCH ×2 (08:02→20:56)
[2016-05-13] MEDS: Insulin LISPRO 300 UNITS/3 ML VIAL SQ SCH ×4 (08:02→21:04)
[2016-05-13] MEDS: FLUoxetine 20 MG CAPSULE PO SCH (08:04)
[2016-05-13] MEDS: sulfaSALAzine 500 MG TABLET PO SCH ×2 (08:05→20:56)
[2016-05-13] MEDS: Diltiazem CD (24hr) 240 MG CAPSULE PO SCH (08:05)
[2016-05-13] MEDS: Isosorbide MONOnitrate (24 HR) 60 MG TAB.ER.24H PO SCH (08:06)
[2016-05-13] MEDS ORDERED: Ertapenem 1,000 MG in 0.9 % Sodium Chloride Mini Bag 100 ML IVPB SCH (15:00)
[2016-05-13] MEDS ORDERED: Cefepime HCl 2,000 MG in D5% in Water (Mini-Bag+) 100 ML IVPB SCH (16:00)
--- NOTE | 2016-05-13 16:18 | Internal Med Progress Note ---
Date of Encounter: 05/13/16 Time of Encounter: 16:15 - Assessment and plan (1) UTI (urinary tract infection) Current Visit: Yes Status: Acute Assessment and plan: Patient initially presented with dysuria. she denies hematuria, nausea, vomiting , flank or suprapubic pain to tenderness upon examination. She was prescribed macrobid by per PCP, but her symptoms did not improve. CT A/P showed no evidence of obstructive uropathy, did show diverticulosis without diverticulitis and bilateral renal cysts. URine culture grew pseudomonas resistant to levaquin and cipro start cefepime 2mg daily. Qualifiers: Urinary tract infection type: acute cystitis Hematuria presence: with hematuria Qualified Code(s): N30.01 - Acute cystitis with hematuria (2) Failure of outpatient treatment Current Visit: Yes Status: Acute Assessment and plan: Patient was treated outpatient for UTI, but failed treatment. Plan as above. (3) Nausea & vomiting Current Visit: Yes Status: Acute Assessment and plan: resolved. Zofran PRN continue to monitor. Qualifiers: Vomiting type: cyclical vomiting Vomiting Intractability: non-intractable Qualified Code(s): G43.A0 - Cyclical vomiting, not intractable (4) DVT prophylaxis Current Visit: No Status: Acute Assessment and plan: Continue with Pradaxa. Anti embolic stockings Ambulate TID (5) DM (diabetes mellitus), type 2 Current Visit: No Status: Chronic Assessment and plan: low dose sliding scale with ACHS accuchecks. Diabetic diet with Ensure High protein TID. Consult to nutrition for recommendations. Repeat A1C was 6.5. 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 - Constitutional Vitals: Temp Pulse Resp BP Pulse Ox 97.3 F L 93 17 155/91 96 05/13/16 15:03 05/13/16 15:03 05/13/16 15:03 05/13/16 12:15 05/13/16 15:03 General appearance: Present: A&O X 3, pleasant, no acute distress, answers questions appropriately - Head Head exam: Present: atraumatic, normocephalic - Eye Eye exam: Present: PERRL, conjuntiva pink, sclera anicteric Pupils: Present: PERRL - Neck Neck exam general surgery: Present: supple, trachea midline. Absent: lymphadenopathy - Respiratory Respiratory exam: Present: CTAB. Absent: accessory muscle use, rales, rhonchi, wheezes - Cardiovascular Cardiovascular exam: Present: RRR, +S1, +S2. Absent: diastolic murmur, gallop, rubs, systolic murmur - GI/Abdominal GI/Abdominal exam: Present: normal bowel sounds, soft, no peritoneal signs. Absent: distended, tenderness - Extremities Exam Extremities exam: Present: warm, radial pulses palpable and symetrical. Absent : calf tenderness, cyanotic, pedal edema - Neurological Exam Neurological exam: Present: CN II-XII intact, oriented X3, no focal deficits. Absent: pronater drift, facial droop, speech deficit - Skin Skin exam: Present: dry, intact Internal Medicine: Result - Labs CBC & Chem 7: 05/13/16 04:33 05/13/16 04:33 Labs: Short CBC 05/13/16 Range/Units 04:33 WBC 7.6 (4.3-11.1) K/mcL Hgb 11.9 (11.5-15.4) g/dL Hct 35.6 (35.3-44.9) % Plt Count 260 (140-400) K/mcL Neutrophils # 4.9 (1.6-8.9) K/mcL BMP 05/13/16 04:33 Sodium 138 Potassium 3.6 Chloride 107 Carbon Dioxide 23 BUN 11 Creatinine 0.74 Glucose 168 H Calcium 7.9 L - ABG Interpretation ABG results: PT/INR, D-dimer PT 14.2 Seconds (9.4-12.1) H 05/10/16 16:50 - VTE Documentation of Mechanical Device: Graduated compression elastic hosiery Consult Discharge Plan - Plan Referrals: Rosalinda Green, PIT AND AUXILIARIES SUPERVISOR [Advanced Practice Nurse] - 05/18/16 9:45 am
[2016-05-13] MEDS: Cefepime HCl 2,000 MG in D5% in Water (Mini-Bag+) 100 ML IVPB SCH (16:53)
[2016-05-14] MEDS ORDERED: Acetaminophen 325 MG TABLET PO PRN (04:09)
[2016-05-14] MEDS: Diltiazem CD (24hr) 240 MG CAPSULE PO SCH (09:50)
[2016-05-14] MEDS: *HR* Dabigatran 150 MG CAPSULE PO SCH ×2 (09:50→20:53)
[2016-05-14] MEDS: sulfaSALAzine 500 MG TABLET PO SCH ×2 (09:50→20:54)
[2016-05-14] MEDS: Isosorbide MONOnitrate (24 HR) 60 MG TAB.ER.24H PO SCH (09:50)
[2016-05-14] MEDS: FLUoxetine 20 MG CAPSULE PO SCH (09:51)
[2016-05-14] MEDS: Insulin LISPRO 300 UNITS/3 ML VIAL SQ SCH ×4 (09:58→20:59)
[2016-05-14] MEDS: Cefepime HCl 2,000 MG in D5% in Water (Mini-Bag+) 100 ML IVPB SCH (18:57)
[2016-05-15] MEDS: sulfaSALAzine 500 MG TABLET PO SCH (09:11)
[2016-05-15] MEDS: *HR* Dabigatran 150 MG CAPSULE PO SCH (09:12)
[2016-05-15] MEDS: Isosorbide MONOnitrate (24 HR) 60 MG TAB.ER.24H PO SCH (09:12)
[2016-05-15] MEDS: Diltiazem CD (24hr) 240 MG CAPSULE PO SCH (09:12)
[2016-05-15] MEDS: FLUoxetine 20 MG CAPSULE PO SCH (09:12)
[2016-05-15] MEDS: Insulin LISPRO 300 UNITS/3 ML VIAL SQ SCH ×2 (09:19→12:46)
--- NOTE | 2016-05-15 11:31 | Discharge Summary ---
Date of Encounter: 05/15/16 Time of Encounter: 11:05 - Discharge Medications Prescriptions: Cefepime HCl/Dextrose, Iso-Osm [Cefepime 2 gm Injection] 2 gm IV DAILY 3 Days Home Medications: FLUoxetine HCl [Prozac] 40 mg PO QAM 12/01/14 [History] Metformin HCl [Fortamet] 500 mg PO BID 12/01/14 [History] Dabigatran [Pradaxa] 150 mg PO BID #60 capsule 01/22/15 [Rx] Diltiazem CD (24hr) [Cardizem CD] 240 mg PO QAM 05/10/15 [History] Isosorbide MONOnitrate (24 HR) [Imdur] 90 mg PO QAM 05/10/15 [History] Sulfasalazine [Azulfidine] 1,000 mg PO BID 08/12/15 [History] Metoprolol [Lopressor] 25 mg PO BID 05/10/16 [History] Simvastatin [Zocor] 40 mg PO HS 05/10/16 [History] Cefepime HCl/Dextrose, Iso-Osm [Cefepime 2 gm Injection] 2 gm IV DAILY 3 Days [Rx] Allergies/Adverse Reactions: Allergies No Known Allergies Allergy (Verified 05/10/16 15:17) Date of admission: 05/11/16 07:28 Primary care physician: Peter Mckenzie Consults: 05/11/16 11:31 consult to thermodynamicist [Consult to Nutrition] [CONS] Routine Comment: Consulting Provider: NUTRITION Reason for Dietary Consult: Supplemental Nutrition 05/13/16 15:06 Consult to Invasive Line Access Team [CONS] Routine Reason for Consult: Possible need for SIA upon d/c Line Type: EPIV - Patient Status Disposition: Home Health Service Condition: Good Overall status at discharge: patient is back to baseline - Discharge Instructions Follow Up With: Rosalinda Green CNP [Advanced Practice Nurse] - 05/18/16 9:45 am - Diet and Activity Activity: increase activity as tolerated, resume usual activities as tolerated Diet: diabetic diet Hospital course: Ms. Bolaños is a 85 year old female - Time Spent with Patient Total time spent providing and/or coordinating discharge services: - Constitutional Vitals: Temp Pulse Resp BP Pulse Ox 97.7 F 55 18 124/80 92 L 05/15/16 07:00 05/15/16 07:00 05/15/16 07:00 05/15/16 07:00 05/15/16 07:00 General appearance: Present: A&O X 3, pleasant, no acute distress, answers questions appropriately - VTE Documentation of Mechanical Device: Graduated compression elastic hosiery
[2016-05-15] MEDS: Cefepime HCl 2,000 MG in D5% in Water (Mini-Bag+) 100 ML IVPB SCH (15:10)
[2016-05-15 16:34] VITALS: BP 124/75
--- NOTE | 2016-05-16 09:49 | Physician Discharge Referral ---
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 For more information, call the [place] Tobacco Quit Line at 5-075-KQXF-NOW. - Diet/Nutrition Diet/Nutrition: List: Diet as before - Activity Activity Orders: Up ad narendra - Services Needed Following services are medically necessary services: Nursing, Physical Therapy - Transfer Medications Prescriptions: Cefepime HCl/Dextrose, Iso-Osm [Cefepime 2 gm Injection] 2 gm IV DAILY 3 Days Home Medications: FLUoxetine HCl [Prozac] 40 mg PO QAM 12/01/14 [History] Metformin HCl [Fortamet] 500 mg PO BID 12/01/14 [History] Dabigatran [Pradaxa] 150 mg PO BID #60 capsule 01/22/15 [Rx] Diltiazem CD (24hr) [Cardizem CD] 240 mg PO QAM 05/10/15 [History] Isosorbide MONOnitrate (24 HR) [Imdur] 90 mg PO QAM 05/10/15 [History] Sulfasalazine [Azulfidine] 1,000 mg PO BID 08/12/15 [History] Metoprolol [Lopressor] 25 mg PO BID 05/10/16 [History] Simvastatin [Zocor] 40 mg PO HS 05/10/16 [History] Cefepime HCl/Dextrose, Iso-Osm [Cefepime 2 gm Injection] 2 gm IV DAILY 3 Days [Rx] Allergies/Adverse Reactions: Allergies No Known Allergies Allergy (Verified 05/10/16 15:17) Certification: Further, I certify that my clinical findings support that this patient is homebound (i.e. absences from home require considerable and taxing effort and are for medical reasons or worship services or infrequently or short duration when for other reasons) because: Homebound Reason: Absences from home are contraindicated except to recieve medical care, Leaving home requires considerable and taxing effort due to condition, Severity of cardiac or pulmonary status limits activity tolerance Attestation: My signature below is to certify that this patient is under my care and that I, or nurse practitioner, or a physician's parts room assistant working with me, has a face-to -face encounter with this patient.
== END 2016-05-15 18:20 | disposition home health service (06) | DRG 690 ==
LOC: EMEROO 15:10 → 3BNU 15:10 → SUATTDRO 20:13 → 3BNU 20:36
PROVIDERS: ADMIT Nurse Practitioner Family; ATTEND Internal Medicine

== ENCOUNTER 2017-09-01 11:11 | Inpatient (IN) ==
--- NOTE | 2017-09-01 11:31 | Emergency Department Note ---
Disposition Clinical Impression: Atrial fibrillation with rapid ventricular response Episode of syncope Qualifiers: Syncope type: unspecified Qualified Code(s): R55 - Syncope and collapse Fracture of left humerus Qualifiers: Encounter type: initial encounter Humerus Location: proximal Fracture type: closed Fracture morphology: unspecified fracture morphology Qualified Code(s): S42.202A - Unspecified fracture of upper end of left humerus, initial encounter for closed fracture Closed left hip fracture Qualifiers: Encounter type: initial encounter Qualified Code(s): S72.002A - Fracture of unspecified part of neck of left femur, initial encounter for closed fracture Disposition: Admitted As Inpatient Condition: Fair Referrals: Peter Mckenzie DO [Primary Care Provider] - Forms: ED Satisfaction Letter Time of Disposition: 13:19 Fall HPI - General Chief Complaint: ED Fall Stated Complaint: Fall Time Seen by Provider: 09/01/17 11:16 Source: patient, EMS Mode of arrival: EMS Limitations: no limitations Nursing Notes Reviewed: Yes Vital Signs Reviewed: Yes - History of Present Illness HPI Narrative: Nontoxic-appearing 86-year-old female is brought by EMS from home after sustaining a fall after arising from her chair. She states that she "felt dizzy and hit the floor". She arrives with a mild hematoma noted to the left frontal forehead. She complains of neck pain, left shoulder and upper arm pain , as well as left hip pain. She denies any chest pain or palpitations. She denies any shortness of breath. She denies any abdominal pain. She denies any other injury. She denies any numbness lasting was/weakness of the extremities. She is anticoagulated for atrial fibrillation and is on Xarelto. Pt Subjective Complaint: fall Onset (ago): hour(s) (Approximately 9:00 AM) Fall From: standing Fall Witnessed: no Place Fall Occurred: home Loss of Consciousness: unsure Prolonged Down Time?: unclear Symptoms Prior to Fall: dizziness Location of injury: head, neck, hip, other (Left shoulder) Location of injury - extremities: Left: shoulder, hip Severity: moderate Severity scale (1-10): 8 Quality: dull, aching Associated symptoms (after fall): Reports: neck pain. Denies: headache, numbness, weakness, chest pain, shortness of breath, abdominal pain - Related Data Home Medications Medication Instructions Recorded Confirmed FLUoxetine HCl [Prozac] 40 mg PO QAM 09/29/15 03/08/17 Metformin HCl [Fortamet] 500 mg PO BID 12/01/14 05/10/16 Diltiazem CD (24hr) [Cardizem CD] 240 mg PO QAM 05/10/15 05/10/16 Isosorbide MONOnitrate (24 HR) 90 mg PO QAM 05/10/15 05/10/16 [Imdur] Sulfasalazine [Azulfidine] 1,000 mg PO BID 08/12/15 05/10/16 Metoprolol [Lopressor] 25 mg PO BID 05/10/16 05/10/16 Simvastatin [Zocor] 40 mg PO HS 05/10/16 05/10/16 Previous Rx's Medication Instructions Recorded Dabigatran [Pradaxa] 150 mg PO BID #60 capsule 01/22/15 Cefepime HCl/Dextrose, Iso-Osm 2 gm IV DAILY 3 Days froz.[email or web address] 05/15/16 [Cefepime 2 gm Injection] Allergies Allergy/AdvReac Type Severity Reaction Status Date / Time No Known Allergies Allergy Verified 05/10/16 15:17 All systems ED: reviewed and negative except as stated. Constitutional: Denies: fever, chills, weakness, weight change Eyes: Denies: eye pain, eye discharge, vision change ENT ED: Denies: ear pain, throat pain, dental pain, hearing loss, epistaxis, congestion, dysphagia Cardiovascular: Denies: chest pain, palpitations, dyspnea on exertion, edema, syncope Respiratory: Denies: cough, dyspnea, wheezes, hemoptysis, stridor Gastrointestinal: Denies: abdominal pain, nausea, vomiting, diarrhea, constipation, hematemesis, melena, hematochezia Genitourinary: Denies: dysuria, frequency, hematuria, discharge Musculoskeletal: Reports: as per HPI, neck pain, arthralgia (Left shoulder, left hip pain). Denies: back pain, myalgia Integumentary: Denies: rash, abrasion, lesions Neurological: Denies: headache, weakness, numbness, paresthesias, confusion, abnormal gait, vertigo Psychiatric: Denies: anxiety, depression, suicidal thoughts, homicidal thoughts , auditory hallucinations, visual hallucinations Endocrine: Denies: fatigue Hematological/Lymphatic: Denies: easy bleeding, easy bruising Allergic/Immunologic: Denies: facial swelling, urticaria Fall PMH - Past Medical History Medical history: Reports: atrial fibrillation, CVA, diabetes, GERD, hyperlipidemia, hypertension, RA, other Surgical history: Reports: cholecystectomy, other, pacemaker Psychiatric history: Reports: no psych history STOCK LIFTER history: Reports: non-contributory - Social History Smoking Status: Never smoker Alcohol use: Reports: none Drug use: Reports: none Physical Exam - General Limitations: no limitations General appearance: alert, in no apparent distress - Head Head exam: normocephalic - Expanded Head Exam Head exam physicial: Present: hematoma. Absent: laceration, abrasion, contusion , raccoon eyes, Mccann's sign 1 - Mild hematoma noted. No abrasion or laceration. - Eye Eye exam: Present: normal appearance, PERRL, EOMI. Absent: nystagmus - ENT ENT exam: mucous membranes moist - Neck Neck exam: Present: trachea midline, tenderness (Cervical spine). Absent: full ROM (Range of motion limited by pain, cervical spine) - Chest Chest inspection: Present: normal inspection, symmetric chest wall rise - Respiratory Respiratory exam: Present: normal lung sounds bilaterally. Absent: respiratory distress, wheezes, stridor, accessory muscle use, prolonged expiratory phase - Cardiovascular Cardiovascular exam: Present: tachycardia, irregular rhythm, normal heart sounds - Abdominal Exam Abdominal exam: Present: soft, Non-Tender, normal bowel sounds. Absent: trauma - Expanded Upper Extremity Exam Shoulder exam: Present: tenderness (Diffuse, left shoulder). Absent: full ROM ( Range of motion limited by pain, left shoulder), swelling, abrasion, laceration , ecchymosis, deformity, erythema Arm exam: Present: normal inspection, full ROM Elbow exam: Present: normal inspection, full ROM Forearm/Wrist exam: Present: normal inspection, full ROM Hand exam: Present: normal inspection, full ROM Neuromotor exam: Normal: wrist extension, thumb opposition, fingers 2-5 abduction Neurosensory exam: Normal: radial nerve, ulnar nerve, 2-point discrimination Hand tendon exam: Normal: flexor digitorum profundus (location), extensor tendon (location) Vascular exam: Normal: capillary refill, radial pulse, ulnar pulse - Expanded Lower Extremity Exam Hip/Pelvis exam: Present: tenderness (Left hip), pelvis stable. Absent: full ROM (Range of motion limited by pain, left hip), swelling, abrasion, laceration , ecchymosis, deformity, crepitus, external rotation, internal rotation, shortening Upper leg exam: Present: normal inspection, full ROM Knee exam: Present: normal inspection, full ROM Lower leg exam: Present: normal inspection, full ROM Ankle exam: Present: normal inspection, full ROM Foot/toe exam: Present: normal inspection, full ROM Neurovascular/Tendon exam: Present: normal capillary refill. Absent: pulse deficit, tendon deficit, extremity cold to touch Gait: not tested/not observed - Back Exam Back exam: Present: normal inspection, full ROM. Absent: tenderness, vertebral tenderness - Neurological Exam Neurological exam: Present: alert, oriented X3 - Psychiatric Psychiatric exam: Present: normal affect, normal mood - Skin Skin exam: Present: warm, dry, intact, normal color Course Course Narrative: 1250: I spoke with Dr. Child, orthopedist head tennis professional. He recommends admission to the hospital service with orthopedic consultation. I discussed this plan with Dr. Rueda. Dr. Rueda has had a [id number] evaluation with the patient and agrees with this plan. 1317: I spoke with Dr. Keller of the hospitalist services agreed to accept the patient to the hospitalist care. Vital Signs Temperature 97.5 F L 09/01/17 11:13 Pulse Rate 120 09/01/17 11:13 Respiratory Rate 09/01/17 11:13 Blood Pressure 117/107 09/01/17 11:13 O2 Sat by Pulse Oximetry 09/01/17 11:13 Temperature 97.5 F L 09/01/17 11:13 Pulse Rate 120 09/01/17 11:13 Respiratory Rate 09/01/17 11:13 Blood Pressure 117/107 09/01/17 11:13 O2 Sat by Pulse Oximetry 09/01/17 11:13 Oxygen Delivery Oxygen Delivery Room Air Fall - Medical Records Medical records reviewed: Yes I reviewed the patient's medical records. - Lab Data Lab results reviewed: Yes I reviewed the patient's lab results. Lab results narrative: Laboratory Last Values WBC 12.3 K/mcL (4.3-11.1) H 09/01/17 11:16 RBC 5.11 M/mcL (3.82-4.97) H 09/01/17 11:16 Hgb 15.3 g/dL (11.5-15.4) 09/01/17 11:16 Hct 44.2 % (35.3-44.9) 09/01/17 11:16 MCV 86.5 fL (83.0-100.0) 09/01/17 11:16 MCH 29.9 pg (28.0-33.3) 09/01/17 11:16 MCHC 34.6 g/dL (31.6-35.5) 09/01/17 11:16 RDW 14.6 % (11.5-14.5) H 09/01/17 11:16 Plt Count 295 K/mcL (140-400) 09/01/17 11:16 MPV 10.7 fL (9.4-12.4) 09/01/17 11:16 Immature Gran % 0.6 % (0-4) 09/01/17 11:16 Seg Neutrophils % 81.8 % 09/01/17 11:16 Lymphocytes % 10.2 % 09/01/17 11:16 Monocytes % 5.8 % 09/01/17 11:16 Eosinophils % 1.2 % 09/01/17 11:16 Basophils % 0.4 % 09/01/17 11:16 Neutrophils # 10.1 K/mcL (1.6-8.9) H 09/01/17 11:16 Lymphocytes # 1.3 K/mcL (0.6-4.6) 09/01/17 11:16 Monocytes # 0.7 K/mcL (0.0-1.3) 09/01/17 11:16 Eosinophils # 0.2 K/mcL (0.0-0.6) 09/01/17 11:16 Basophils # 0.1 K/mcL (0.0-0.2) 09/01/17 11:16 PT 12.6 Seconds (9.4-12.1) H 09/01/17 12:14 INR 1.1 09/01/17 12:14 APTT 35.1 Seconds (26.0-36.0) 09/01/17 12:14 Sodium 132 mEq/L (136-145) L 09/01/17 12:14 Potassium 3.5 mEq/L (3.5-5.1) 09/01/17 12:14 Chloride 97 mEq/L (98-107) L 09/01/17 12:14 Carbon Dioxide 20 mEq/L (23-29) L 09/01/17 12:14 BUN 9 mg/dL (8-23) 09/01/17 12:14 Creatinine 0.58 mg/dL (0.60-1.20) L 09/01/17 12:14 Est GFR ( Amer) > 60 (> 60) 09/01/17 12:14 Est GFR (Non-Af Amer) > 60 (> 60) 09/01/17 12:14 BUN/Creatinine Ratio 16 (6-26) 09/01/17 12:14 Glucose 350 mg/dL (70-105) H 09/01/17 12:14 Calculated Osmolality 287 (280-300) 09/01/17 12:14 Calcium 9.1 mg/dL (8.6-10.3) 09/01/17 12:14 Troponin I < 0.03 ng/mL (< 0.04) 09/01/17 12:14 Result diagrams: 09/01/17 11:16 09/01/17 12:14 Lab Results 09/01/17 09/01/17 09/01/17 Range/Units 11:16 12:14 12:14 WBC 12.3 H (4.3-11.1) K/mcL RBC 5.11 H (3.82-4.97) M/mcL Hgb 15.3 (11.5-15.4) g/dL Hct 44.2 (35.3-44.9) % MCV 86.5 (83.0-100.0) fL MCH 29.9 (28.0-33.3) pg MCHC 34.6 (31.6-35.5) g/dL RDW 14.6 H (11.5-14.5) % Plt Count 295 (140-400) K/mcL MPV 10.7 (9.4-12.4) fL Immature Gran % 0.6 (0-4) % Seg Neutrophils % 81.8 % Lymphocytes % 10.2 % Monocytes % 5.8 % Eosinophils % 1.2 % Basophils % 0.4 % Neutrophils # 10.1 H (1.6-8.9) K/mcL Lymphocytes # 1.3 (0.6-4.6) K/mcL Monocytes # 0.7 (0.0-1.3) K/mcL Eosinophils # 0.2 (0.0-0.6) K/mcL Basophils # 0.1 (0.0-0.2) K/mcL PT 12.6 H (9.4-12.1) Seconds INR 1.1 APTT 35.1 (26.0-36.0) Seconds Sodium 132 L (136-145) mEq/L Potassium 3.5 (3.5-5.1) mEq/L Chloride 97 L (98-107) mEq/L Carbon Dioxide 20 L (23-29) mEq/L BUN 9 (8-23) mg/dL Creatinine 0.58 L (0.60-1.20) mg/dL Est GFR ( Amer) > 60 (> 60) Est GFR (Non-Af Amer) > 60 (> 60) BUN/Creatinine Ratio 16 (6-26) Glucose 350 H (70-105) mg/dL Calculated Osmolality 287 (280-300) Calcium 9.1 (8.6-10.3) mg/dL Troponin I < 0.03 (< 0.04) ng/mL - Radiology Data Radiology results reviewed: Yes I reviewed the patient's radiology results. Chest X-Ray 09/01/17 11:16 IMPRESSION: No evidence of acute cardiopulmonary disease. Proximal left humeral fracture. D/ / 09/01/2017 12:13:37 Ravi Summers MD / earnold Interpreting Provider: Ravi Summers MD Cervical Spine CT 09/01/17 11:27 IMPRESSION: No acute abnormality of the cervical spine. No acute intracranial abnormality D/ / Kimberly Maloney Cha, MD / Kimberly Maloney Cha, MD Interpreting Provider: Kimberly Maloney Cha, MD Head CT 09/01/17 11:27 IMPRESSION: No acute abnormality of the cervical spine. No acute intracranial abnormality D/ / Kimberly Maloney Cha, MD / Kimberly Maloney Cha, MD Interpreting Provider: Kimberly Maloney Cha, MD Hip X-Ray 09/01/17 11:27 IMPRESSION: 1. Acute nondisplaced fracture of the left femoral intertrochanteric region, involving the greater and lesser trochanters. There may be slight extension into the subtrochanteric region. 2. Bony demineralization. D/ / Ricky Waldrop MD / Ricky Waldrop MD Interpreting Provider: Ricky Waldrop MD Humerus X-Ray 09/01/17 11:27 IMPRESSION: Acute proximal left humeral fracture centered at the metaphysis. Mild impaction and anterior displacement. Osteopenia. D/ / 09/01/2017 12:06:43 Ravi Summers MD / christian Interpreting Provider: Ravi Summers MD Shoulder X-Ray 09/01/17 11:27 IMPRESSION: Acute proximal left humeral fracture centered at the metaphysis. Mild impaction and anterior displacement. Osteopenia. D/ / 09/01/2017 12:06:43 Ravi Summers MD / christian Interpreting Provider: Ravi Summers MD - EKG Data EKG attestation: Yes I reviewed and interpreted this EKG. EKG results narrative: EKG reviewed by Dr. Rueda as well. EKG shows atrial fibrillation with rapid ventricular response at a rate of 128 bpm. QRS duration 80, QT/QTc interval 331 /407. No ectopy noted. No ST elevation. No significant changes when compared to an EKG dated from 01/01/17.
[2017-09-01] MEDS ORDERED: *HR* FentaNYL (PF) 100 MCG/2 ML VIAL IVP ONE (11:33)
[2017-09-01] MEDS ORDERED: Ondansetron 4 MG/2 ML VIAL IVP ONE (11:33)
--- NOTE | 2017-09-01 11:45 | Emergency Department Note ---
Disposition Clinical Impression: Atrial fibrillation with rapid ventricular response, Episode of syncope, Fracture of left humerus, Closed left hip fracture Disposition: Admitted As Inpatient Condition: Fair Referrals: Peter Mckenzie DO [Primary Care Provider] - Forms: ED Satisfaction Letter General Adult HPI - General Chief complaint: ED Fall Stated complaint: Fall Time Seen by Provider: 09/01/17 11:16 Source: patient, EMS Mode of arrival: EMS Limitations: no limitations Nursing Notes Reviewed: Yes Vital Signs Reviewed: Yes - History of Present Illness Pain Scale: 8 - Related Data Home Medications Medication Instructions Recorded Confirmed FLUoxetine HCl [Prozac] 40 mg PO QAM 12/01/14 05/10/16 Metformin HCl [Fortamet] 500 mg PO BID 12/01/14 05/10/16 Diltiazem CD (24hr) [Cardizem CD] 240 mg PO QAM 05/10/15 05/10/16 Isosorbide MONOnitrate (24 HR) 90 mg PO QAM 05/10/15 05/10/16 [Imdur] Sulfasalazine [Azulfidine] 1,000 mg PO BID 08/12/15 05/10/16 Metoprolol [Lopressor] 25 mg PO BID 05/10/16 05/10/16 Simvastatin [Zocor] 40 mg PO HS 05/10/16 05/10/16 Previous Rx's Medication Instructions Recorded Dabigatran [Pradaxa] 150 mg PO BID #60 capsule 01/22/15 Cefepime HCl/Dextrose, Iso-Osm 2 gm IV DAILY 3 Days froz.piggy 05/15/16 [Cefepime 2 gm Injection] Allergies Allergy/AdvReac Type Severity Reaction Status Date / Time No Known Allergies Allergy Verified 05/10/16 15:17 Constitutional: Denies: fever, chills, weakness, weight change Eyes: Denies: eye pain, eye discharge, vision change ENT ED: Denies: ear pain, throat pain, dental pain, hearing loss, epistaxis, congestion, dysphagia Cardiovascular: Denies: chest pain, palpitations, dyspnea on exertion, edema, syncope Respiratory: Denies: cough, dyspnea, wheezes, hemoptysis, stridor Gastrointestinal: Denies: abdominal pain, nausea, vomiting, diarrhea, constipation, hematemesis, melena, hematochezia Genitourinary: Denies: dysuria, frequency, hematuria, discharge Musculoskeletal: Reports: as per HPI, neck pain, arthralgia (Left shoulder, left hip pain). Denies: back pain, myalgia Integumentary: Denies: rash, abrasion, lesions Neurological: Denies: headache, weakness, numbness, paresthesias, confusion, abnormal gait, vertigo Psychiatric: Denies: anxiety, depression, suicidal thoughts, homicidal thoughts , auditory hallucinations, visual hallucinations Endocrine: Denies: fatigue Hematological/Lymphatic: Denies: easy bleeding, easy bruising Allergic/Immunologic: Denies: facial swelling, urticaria Past Medical History - Past Medical History Medical history: Reports: atrial fibrillation, CVA, diabetes, GERD, hyperlipidemia, hypertension, RA, other Surgical history: Reports: cholecystectomy, other, pacemaker Psychiatric history: Reports: no psych history 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: Reports: non-contributory - Social History Smoking Status: Never smoker Smokeless Tobacco Status: No Alcohol use: Reports: none Drug use: Reports: none Physical Exam - General Limitations: no limitations General appearance: alert, in no apparent distress Course Vital Signs Temperature 97.5 F L 09/01/17 11:13 Pulse Rate 120 09/01/17 11:13 Respiratory Rate 18 09/01/17 11:13 Blood Pressure 117/107 09/01/17 11:13 O2 Sat by Pulse Oximetry 99 09/01/17 11:13 Temperature 97.5 F L 09/01/17 11:13 Pulse Rate 120 09/01/17 11:13 Respiratory Rate 18 09/01/17 11:13 Blood Pressure 117/107 09/01/17 11:13 O2 Sat by Pulse Oximetry 99 09/01/17 11:13 Oxygen Delivery Oxygen Delivery Room Air Medical Decision Making - Lab Data Result diagrams: 09/01/17 11:16 09/01/17 12:14 Lab Results 09/01/17 09/01/17 09/01/17 Range/Units 11:16 12:14 12:14 WBC 12.3 H (4.3-11.1) K/mcL RBC 5.11 H (3.82-4.97) M/mcL Hgb 15.3 (11.5-15.4) g/dL Hct 44.2 (35.3-44.9) % MCV 86.5 (83.0-100.0) fL MCH 29.9 (28.0-33.3) pg MCHC 34.6 (31.6-35.5) g/dL RDW 14.6 H (11.5-14.5) % Plt Count 295 (140-400) K/mcL MPV 10.7 (9.4-12.4) fL Immature Gran % 0.6 (0-4) % Seg Neutrophils % 81.8 % Lymphocytes % 10.2 % Monocytes % 5.8 % Eosinophils % 1.2 % Basophils % 0.4 % Neutrophils # 10.1 H (1.6-8.9) K/mcL Lymphocytes # 1.3 (0.6-4.6) K/mcL Monocytes # 0.7 (0.0-1.3) K/mcL Eosinophils # 0.2 (0.0-0.6) K/mcL Basophils # 0.1 (0.0-0.2) K/mcL PT 12.6 H (9.4-12.1) Seconds INR 1.1 APTT 35.1 (26.0-36.0) Seconds Sodium 132 L (136-145) mEq/L Potassium 3.5 (3.5-5.1) mEq/L Chloride 97 L (98-107) mEq/L Carbon Dioxide 20 L (23-29) mEq/L BUN 9 (8-23) mg/dL Creatinine 0.58 L (0.60-1.20) mg/dL Est GFR ( Amer) > 60 (> 60) Est GFR (Non-Af Amer) > 60 (> 60) BUN/Creatinine Ratio 16 (6-26) Glucose 350 H (70-105) mg/dL Calculated Osmolality 287 (280-300) Calcium 9.1 (8.6-10.3) mg/dL Troponin I < 0.03 (< 0.04) ng/mL Critical Care Time Critical Care Time: Yes Total Critical Care Time: 35 Attestation: Critical care performed: Time is exclusive of separately billable procedures. Time includes: direct patient care, patient reassessment, coordination of patient care, interpretation of data (laboratory data, radiology data, and respiratory data), review of patient's medical records, medical consultation and documentation of patient care. Procedures included in critical care time: Procedures excluded from critical care time: Attestation Statement - Attestation Attestation: I, Gene Rueda MD, personally evaluated this patient and discussed their management with the midlevel provicer, PAC/SPECIAL CERTIFICATE DICTATOR. I reviewed the midlevel provider 's note and agree with the documented findings, medical decision making, and plan of care. 86-year-old female presents to the emergency department with a complaint of a fall at home just shortly prior to arrival. Patient states she was pouring herself some coffee she lost her balance and fell forward over her walker. She denies loss of consciousness. She is unsure if she hit her head. She complains of pain in her left shoulder and left hip. She was unable to get up after the fall. On examination patient is a well-developed well-nourished elderly female in no acute distress. She is alert and oriented. There is no cyanosis or diaphoresis. There is a hematoma to the left forehead. Neck is supple and nontender with good range of motion. Breath sounds are equal bilaterally. Heart is irregularly irregular with a mild tachycardia. Abdomen soft and nontender with normal bowel sounds. There is marked tenderness on palpation of the left shoulder and left humerus with limited range of motion. Patient reports that she has a fracture of the left humerus for the past 2 months. There is tenderness over the left hip with shortening. No abnormal rotation noted. Neurovascular function intact distally. EKG shows atrial fibrillation with RVR. No acute ischemic changes. No significant change from prior EKG. Chest x-ray negative. CT of the head and neck negative. X-ray of the left shoulder shows a proximal humerus fracture. X -ray of the left hip shows an intertrochanteric fracture. Labs reviewed. Since tachycardia persisted so she was placed on a Cardizem infusion for her atrial fib with RVR. Mid-level provider discussed the case with the orthopedist pediatric orthodontist, Dr. Child. He did request a CT of the hip. The hospitalist, Dr. Keller, was consulted and accepted admission of the patient.
[2017-09-01 11:47] LABS: Basophils # 0.1 K/mcL (0.0-0.2); Basophils % 0.4 %; Eosinophils # 0.2 K/mcL (0.0-0.6); Eosinophils % 1.2 %; Hematocrit 44.2 % (35.3-44.9); Hemoglobin 15.3 g/dL (11.5-15.4); Immature Granulocytes % 0.6 % (0-4); Lymphocytes # 1.3 K/mcL (0.6-4.6); Lymphocytes % 10.2 %; Mean Corpuscular HGB Conc 34.6 g/dL (31.6-35.5); Mean Corpuscular Hemoglobin 29.9 pg (28.0-33.3); Mean Corpuscular Volume 86.5 fL (83.0-100.0); Mean Platelet Volume 10.7 fL (9.4-12.4); Monocytes # 0.7 K/mcL (0.0-1.3); Monocytes % 5.8 %; Neutrophils # 10.1 K/mcL (1.6-8.9); Platelet Count 295 K/mcL (140-400); Red Blood Count 5.11 M/mcL (3.82-4.97); Red Cell Distribution Width 14.6 % (11.5-14.5); Segmented Neutrophils % 81.8 %
[2017-09-01 12:32] LABS: INR 1.1; Prothrombin Time 12.6 Seconds (9.4-12.1)
[2017-09-01 12:35] LABS: Activated Partial Thrombo Time 35.1 Seconds (26.0-36.0)
[2017-09-01 12:44] LABS: Troponin I < 0.03 ng/mL (< 0.04)
[2017-09-01 12:51] LABS: BUN/Creatinine Ratio 16 (6-26); Blood Urea Nitrogen 9 mg/dL (8-23); Calcium 9.1 mg/dL (8.6-10.3); Carbon Dioxide 20 mEq/L (23-29); Chloride 97 mEq/L (98-107); Glucose 350 mg/dL (70-105); Osmolality,Calculated 287 (280-300); Potassium 3.5 mEq/L (3.5-5.1); Sodium 132 mEq/L (136-145); eGFR For African Americans > 60 (> 60); eGFR For Non-African Americans > 60 (> 60)
[2017-09-01 13:40] LABS: Bilirubin,Urine Negative (Negative); Blood,Urine Negative (Negative); Clarity,Urine Clear (Clear); Color,Urine Yellow (Yellow); Glucose,Urine (UA) >=1000 mg/dL (Normal); Ketones,Urine 40 mg/dL (Negative); Leukocyte Esterase,Urine Negative (Negative); Nitrite,Urine Negative (Negative); PH,Urine 7.5 pH Units (5.0-8.0); Protein,Urine 100 mg/dL (Neg-Trace); Specific Gravity,Urine 1.019 (1.010-1.025); Urobilinogen,Urine Normal (Normal)
[2017-09-01 13:45] LABS: Bacteria,Urine None Seen per hpf (None-Few); Hyaline Casts,Urine None Seen per lpf (None-Few); RBC,Urine 0-3 per hpf (0-3); Squamous Epithelial Cell,Urine Many per lpf (None-Few); WBC,Urine 0-3 per hpf (0-3)
[2017-09-01] MEDS ORDERED: Naloxone 0.4 MG/ML INJ IVP PRN (13:55)
[2017-09-01] MEDS ORDERED: Acetaminophen 325 MG TABLET PO PRN (14:02)
[2017-09-01] MEDS ORDERED: Ondansetron 4 MG/2 ML VIAL IVP PRN (14:03)
[2017-09-01] MEDS ORDERED: Ketorolac 30 MG/ML VIAL IVP PRN (14:04)
--- NOTE | 2017-09-01 14:08 | Internal Med History&Physical ---
Date of Encounter: 09/01/17 Time of Encounter: 14:10 Internal Medicine - H&P: HPI Chief complaint: Fall Admitted From: Home Plans for Post Hospital Care: Transfer Residential Facility History of present illness: Ms. Bolaños is a 86 year old female who was in her usual state of health until this morning when she tripped over something and she fell at home. Patient was trying to get some coffee and she lost her balance and fell forward over her walker. She denied any symptoms when that happened. She was awake all to time. Denies any chest pain no dizziness no headache no blurry vision no other symptoms before the episode. Patient was unable to get up after the fall. On presentation to the emergency department patient was found in atrial fibrillation with rapid ventricular response. She has a history of A. fib but she did not take her medications this morning. On my interviewing sebaceous she denied any chest pain. She did have her shoulder pain but is better after she got pain medications. She denied any other complaints at this time Past Med Surg Social Fam HX - Past Medical History Medical history: atrial fibrillation, CVA, diabetes, GERD, hyperlipidemia, hypertension, RA, other Additional medical history: RA Psychiatric history: no psych history - Past Surgical History Surgical History: cholecystectomy, other, pacemaker Additional surgical history: Carpal tunnel on left hand, pacemaker - Social History Smoking Status: Never smoker Smokeless Tobacco Status: No Alcohol use: none Drug use: none - Family History Sister Hx Family Cardiac Disorders: Yes Hx Family Endocrine Disorder: Yes Father Hx Family Cardiac Disorders: Yes (heart attack) Mother Hx Family Cardiac Disorders: Yes (HTN) Brother Adopted: No Family Member Ethnicity: Non- Living Status: Hx Family Cardiac Disorders: Yes (open heart surgery) Hx Family Respiratory Disorders: No Hx Family Cancer: No Hx Family GI Disorders: No Hx Family Endocrine Disorder: No Hx Family Neuromuscular Disorders: No Hx Family HEENT Disorders: No Hx Family Autoimmune Disorders: No Internal Medicine - H&P: Meds FLUoxetine HCl [Prozac] 40 mg PO QAM 12/01/14 [History] Metformin HCl [Fortamet] 500 mg PO BID 12/01/14 [History] Dabigatran [Pradaxa] 150 mg PO BID #60 capsule 01/22/15 [Rx] Diltiazem CD (24hr) [Cardizem CD] 240 mg PO QAM 05/10/15 [History] Isosorbide MONOnitrate (24 HR) [Imdur] 90 mg PO QAM 05/10/15 [History] Sulfasalazine [Azulfidine] 1,000 mg PO BID 08/12/15 [History] Metoprolol [Lopressor] 25 mg PO BID 05/10/16 [History] Simvastatin [Zocor] 40 mg PO HS 05/10/16 [History] Cefepime HCl/Dextrose, Iso-Osm [Cefepime 2 gm Injection] 2 gm IV DAILY 3 Days froz.piggy 05/15/16 [Rx] 3 Allergy/AdvReac Type Severity Reaction Status Date / Time No Known Allergies Allergy Verified 05/10/16 15:17 All Systems PM: A 10-system review of systems was performed and is negative for pertinent findings except as documented above in the HPI. - Constitutional Vitals: Temp Pulse Resp BP Pulse Ox 97.5 F L 120 18 137/87 99 09/01/17 11:13 09/01/17 11:13 09/01/17 13:45 09/01/17 13:45 09/01/17 11:13 Internal Med - H&P Results - Labs CBC & Chem 7: 09/01/17 11:16 09/01/17 12:14 Labs: Urine 09/01/17 Range/Units 13:29 Urine Color Yellow (Yellow) Urine Clarity Clear (Clear) Urine pH 7.5 (5.0-8.0) pH Units Ur Specific [place] 1.019 (1.010-1.025) Urine Protein 100 H (Neg-Trace) mg/dL Urine Glucose (UA) >=1000 H (Normal) mg/dL - Assessment and plan (1) Fall Current Visit: Yes Status: Acute Assessment and plan: Status post mechanical fall Imaging showed left hip fracture and left shoulder fracture Orthopedics already consulted for possible surgery Pain control Patient has A. fib with rapid ventricular response. Started already on Cardizem drip. Patient did not take her heart medications this morning. We will restart her home medications and try to wean off Cardizem drip. Patient denies any chest pain. Was checked troponin. Patient eats to be stable before surgery. Qualifiers: Qualified Code(s): W19.XXXA - Unspecified fall, initial encounter (2) Closed left hip fracture Current Visit: Yes Status: Acute Qualifiers: Qualified Code(s): S72.002A - Fracture of unspecified part of neck of left femur, initial encounter for closed fracture (3) Left humeral fracture Current Visit: Yes Status: Acute Qualifiers: Qualified Code(s): S42.302A - Unspecified fracture of shaft of humerus, left arm, initial encounter for closed fracture (4) Atrial fibrillation with RVR Current Visit: Yes Status: Acute Assessment and plan: Patient is asymptomatic We will restart her cardiac home medications Try to wean off Cardizem drip Cycle troponin We will check an echocardiogram for further evaluation of the heart structure and function Patient has a history of persistent A. fib and she does have a pacemaker. She is on chronic anticoagulation with pradaxa Will discuss with cardiology for possible clearance before surgery (5) Tachy-jossue syndrome Current Visit: No Status: Acute Assessment and plan: Had pacemaker (6) Rheumatoid arthritis Current Visit: No Status: Chronic Assessment and plan: On sulfasalazine Qualifiers: Rheumatoid arthritis location: unspecified site Rheumatoid factor presence : unspecified presence Qualified Code(s): M06.9 - Rheumatoid arthritis, unspecified (7) DM (diabetes mellitus), type 2 Current Visit: No Status: Chronic Assessment and plan: We will hold metformin for now Add insulin sliding scale Qualifiers: 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
[2017-09-01] MEDS: Isosorbide MONOnitrate (24 HR) 30 MG TAB.ER.24H PO SCH (15:58)
[2017-09-01] MEDS: Diltiazem CD (24hr) 240 MG CAPSULE PO SCH (16:55)
[2017-09-01] MEDS: 0.9 % Sodium Chloride 1,000 ML IVC SCH (16:59)
[2017-09-01] MEDS: sulfaSALAzine 500 MG TABLET PO SCH (22:07)
[2017-09-02 02:01] LABS: Basophils % 0.1 %; Eosinophils % 0.1 %; Hematocrit 36.7 % (35.3-44.9); Immature Granulocytes % 0.4 % (0-4); Lymphocytes # 1.2 K/mcL (0.6-4.6); Lymphocytes % 8.5 %; Mean Corpuscular HGB Conc 33.8 g/dL (31.6-35.5); Mean Corpuscular Volume 85.7 fL (83.0-100.0); Monocytes # 1.3 K/mcL (0.0-1.3); Monocytes % 9.2 %; Neutrophils # 11.3 K/mcL (1.6-8.9); Platelet Count 246 K/mcL (140-400); Red Blood Count 4.28 M/mcL (3.82-4.97); Red Cell Distribution Width 15.1 % (11.5-14.5); Segmented Neutrophils % 81.7 %
[2017-09-02 02:02] LABS: Hemoglobin 12.4 g/dL (11.5-15.4)
[2017-09-02 02:21] LABS: BUN/Creatinine Ratio 25 (6-26); Blood Urea Nitrogen 19 mg/dL (8-23); Calcium 8.5 mg/dL (8.6-10.3); Carbon Dioxide 21 mEq/L (23-29); Chloride 101 mEq/L (98-107); Glucose 354 mg/dL (70-105); Magnesium 1.7 mg/dL (1.6-2.6); Osmolality,Calculated 290 (280-300); Phosphorous 5.2 mg/dL (2.7-4.5); Potassium 3.7 mEq/L (3.5-5.1); Sodium 132 mEq/L (136-145); eGFR For African Americans > 60 (> 60); eGFR For Non-African Americans > 60 (> 60)
[2017-09-02] MEDS ORDERED: *HR* Enoxaparin 30 MG/0.3 ML SYRINGE SQ SCH (06:00)
[2017-09-02] MEDS ORDERED: *HR* Propofol 200 MG/20 ML VIAL IVP ONE (07:17)
[2017-09-02] MEDS ORDERED: *HR* FentaNYL (PF) 100 MCG/2 ML VIAL ONE (07:17)
[2017-09-02] MEDS ORDERED: Dexamethasone 4 MG/ML VIAL ONE (07:19)
[2017-09-02] MEDS ORDERED: Ondansetron 4 MG/2 ML VIAL ONE (07:19)
[2017-09-02] MEDS ORDERED: Lidocaine -MPF 2% 2 ML VIAL ONE (07:19)
--- NOTE | 2017-09-02 07:56 | Anesthesia Evaluation PreOp ---
Date of Encounter: 09/02/17 Time of Encounter: 09:29 - Past History Planned Operation: Left hip IM nailing Cardiac History: HTN, Hyperlipidemia, Arrhythmia (A fib with RVR on admission - currently on cardizem drip), Pacemaker/ICD (pacemaker placed in 2016) Pulmonary History: Denies Any Significant HX DRAGGER History: CVA (most recently 2 years ago; affected speach and swallowing ( swallowing has improved, but speach is still affected)) Other Medical History: Diabetes Type II (diet controlled) Anesthesia History: No Prior Anesthetic Complications Alcohol Use: none Drug use: none Medications and Allergies Diltiazem CD (24hr) [Cardizem CD] 240 mg PO QAM 05/10/15 [History] Isosorbide MONOnitrate (24 HR) [Imdur] 90 mg PO QAM 05/10/15 [History] Sulfasalazine [Azulfidine] 1,000 mg PO BID 08/12/15 [History] Metoprolol [Lopressor] 25 mg PO BID 05/10/16 [History] Simvastatin [Zocor] 40 mg PO HS 05/10/16 [History] Dabigatran Etexilate Mesylate [Pradaxa] 150 mg PO BID 09/01/17 [History] FLUoxetine HCl [Prozac] 40 mg PO DAILY 09/01/17 [History] Pantoprazole Sodium [Protonix] 40 mg PO DAILY PRN 09/01/17 [History] Polyethylene Glycol 3350 [MiraLAX] 17 gm PO DAILY PRN 09/01/17 [History] 3 Allergy/AdvReac Type Severity Reaction Status Date / Time No Known Allergies Allergy Verified 05/10/16 15:17 - Meds/Allergy Pre-op Review Medications Reviewed: Yes Allergies Reviewed: Yes Beta Blockers on Current Med List: Yes (metoprolol) If Beta Blockers taken, Date/Time (Last Dose taken): inappropriately not receiving on the floor due to NPO status Anesthesia Results - Labs 09/02/17 01:45 09/02/17 01:45 - Imaging EKG: report reviewed, image reviewed (ATRIAL FIBRILLATION WITH RAPID VENTRICULAR RESPONSE MODERATE VOLTAGE CRITERIA FOR LVH, CONSIDER NORMAL VARIANT [MEETS CRITERIA IN ONE OF: R(aVL), S(V1), R(V5), R(V5/V6)+S(V1)] NONSPECIFIC ST & T-WAVE ABNORMALITY ABNORMAL RHYTHM ECG) Additional studies: 09-01-17 CT C-spine: CT/CT cervical spine wo con IMPRESSION: No acute abnormality of the cervical spine. No acute intracranial abnormality 09-01-17 CT head: CT/CT head/brain wo con IMPRESSION: No acute abnormality of the cervical spine. No acute intracranial abnormality 09-01-17 Left shoulder XR: XR/XR shoulder complete LT IMPRESSION: Acute proximal left humeral fracture centered at the metaphysis. Mild impaction and anterior displacement. Osteopenia. 09-01-[address]: CT/CT hip LT wo con IMPRESSION: Acute comminuted nondisplaced left intertrochanteric femoral fracture. Anesthesia Exam Last Vital Signs Temp 98.8 F 09/02/17 07:12 Pulse 97 09/02/17 07:41 Resp 15 09/02/17 07:41 BP 153/97 09/02/17 07:41 Pulse Ox 96 09/02/17 07:41 Weight: 54 kg - HEENT Pupil (Motor): Pupils equal Mallampati: III Teeth: Edentulous Oral Opening: Less than or equal to 3 - DRAGGER LOC: Confused - Cardiac Rhythm: Irregular Murmur: None - Pulmonary Breath Sounds: bilateral Clear Respiratory Effort: Symmetrical Anesthesia Assess/Plan ASA Score: 4 (A fib with RVR, pacemaker, hx multiple CVA, dementia) Modified Adriana Scale for Level of Consciousness: Cooperative, oriented, and tranquil Anesthetic Plan: General Monitoring Plan: Standard Monitors Recovery Plan: PACU
--- NOTE | 2017-09-02 08:46 | Orthopedic Consult Note ---
Date of Encounter: 09/02/17 Time of Encounter: 08:40 Assessment and Plan (1) Intertrochanteric fracture of left hip Current Visit: Yes Status: Acute I did discuss the diagnosis in detail with the patient as well as her son Jer who is the power of assistant attorney general. The patient does have a left surgical neck fracture with mild displacement as well as a left intertrochanteric hip fracture. Regarding the left shoulder my recommendation is for nonoperative management in the form of the sling and early range of motion exercises. We will re-x-ray this in a week to make sure it does not further displace. Regarding the left hip my recommendation was for internal fixation to stabilize left hip and to prevent displacement. The risks discussed included but were not limited to stiffness, bleeding, infection, blood clots, damage to neurovascular structures, tendons, ligaments, and bone. Also discussed was the risk of continued symptoms and possible need for further procedures. I did discuss the anesthesia risks including stroke, heart attack, and . I did discuss the reasonable, foreseeable postoperative course with the patient and the power of assistant attorney general. They did wish to proceed and consent was obtained. Qualifiers: Qualified Code(s): S72.142A - Displaced intertrochanteric fracture of left femur, initial encounter for closed fracture History of Present Illness HPI: Ms. Bolaños is a 86 year old female. She sustained a fall at home yesterday that resulted in a left proximal humerus left intertrochanteric hip fracture. She is admitted to the hospitalist and I was consulted to assist in the evaluation and management of this patient. She complains of pain to the left shoulder as well as left hip region. She denies any headaches or loss of consciousness or right upper extremity or right lower extremity pain. She denies numbness, tingling, or any other associated signs or symptoms or modifying factors. Symptoms are worse with movement and better with rest. No other modifying factors. Past Med Surg Social Fam HX - Past Medical History Medical history: arthritis, atrial fibrillation, CVA, diabetes, GERD, hyperlipidemia, hypertension, RA, other Additional medical history: RA Psychiatric history: no psych history - Past Surgical History Surgical History: cholecystectomy, pacemaker/AICD, other, pacemaker Additional surgical history: Carpal tunnel on left hand, pacemaker - Social History Smoking Status: Never smoker Smokeless Tobacco Status: No Alcohol use: none Drug use: none - Family History Sister Living Status: Age at : 89 Hx Family Cardiac Disorders: Yes Hx Family Endocrine Disorder: Yes Father Living Status: Hx Family Cardiac Disorders: Yes Mother Hx Family Cardiac Disorders: Yes (HTN) Brother Adopted: No Family Member Ethnicity: Non- Living Status: Still Living Hx Family Cardiac Disorders: Yes (open heart surgery) Hx Family Respiratory Disorders: No Hx Family Cancer: Yes (Leukemia) Hx Family GI Disorders: No Hx Family Endocrine Disorder: No Hx Family Neuromuscular Disorders: No Hx Family HEENT Disorders: No Hx Family Autoimmune Disorders: No Medications and Allergies Diltiazem CD (24hr) [Cardizem CD] 240 mg PO QAM 05/10/15 [History] Isosorbide MONOnitrate (24 HR) [Imdur] 90 mg PO QAM 05/10/15 [History] Sulfasalazine [Azulfidine] 1,000 mg PO BID 08/12/15 [History] Metoprolol [Lopressor] 25 mg PO BID 05/10/16 [History] Simvastatin [Zocor] 40 mg PO HS 05/10/16 [History] Dabigatran Etexilate Mesylate [Pradaxa] 150 mg PO BID 09/01/17 [History] FLUoxetine HCl [Prozac] 40 mg PO DAILY 09/01/17 [History] Pantoprazole Sodium [Protonix] 40 mg PO DAILY PRN 09/01/17 [History] Polyethylene Glycol 3350 [MiraLAX] 17 gm PO DAILY PRN 09/01/17 [History] 3 Allergy/AdvReac Type Severity Reaction Status Date / Time No Known Allergies Allergy Verified 05/10/16 15:17 All Systems Reviewed: Constitutional and musculoskeletal systems were reviewed and are negative unless otherwise stated in history of present illness. Physical Exam - Constitutional Vitals: Temp Pulse Resp BP Pulse Ox 98.8 F 97 15 153/97 96 09/02/17 07:12 09/02/17 07:41 09/02/17 07:41 09/02/17 07:41 09/02/17 07:41 Constitutional -Vitals reviewed -The patient is well developed and well nourished. -Mood is pleasant. -The patient is well groomed. Psychiatric -The patient is fully alert and oriented x 3. Respiratory: -Respiratory effort normal Abdomen: -Soft abdomen -Non tender -Non distended: Left upper extremity: -No deformities. The overlying skin is intact. No obvious signs of acute trauma. -Tenderness over the anterior left shoulder region. -I did not range the left shoulder due to her known injury. -No significant pain with passive motion of the elbow, wrist, and fingers within the limits of the bed. -Able to make an "OK" sign, cross the index and long fingers, and extend the thumb. -Sensation grossly intact to light touch throughout the median, radial, and ulnar distributions. -Radial pulse is present; Fingers have good capillary refill. Right upper extremity: -No deformities. The overlying skin is intact. No obvious signs of acute trauma. -No tenderness to palpation throughout. -No significant pain with passive motion of the shoulder, elbow, wrist, and fingers within the limits of the bed. -Able to make an "OK" sign, cross the index and long fingers, and extend the thumb. -Sensation grossly intact to light touch throughout the median, radial, and ulnar distributions. -Radial pulse is present; Fingers have good capillary refill. Left lower extremity: -No deformities noted.. The overlying skin is intact. -There is tenderness in the groin region as well as the proximal lateral thigh. -I did not range the hip due to the known fracture. -No tenderness along the distal thigh, leg, ankle, foot, or toes. -Able to dorsiflex and plantarflex the ankle and toes. -Sensation is grossly intact to light touch throughout the sural, saphenous, superficial peroneal, and deep peroneal distributions. -Toes have good capillary refill. Right lower extremity: -No deformities. The overlying skin is intact. No obvious signs of acute trauma. -No tenderness to palpation throughout. -No pain with passive motion of the hip, knee, ankle, and toes within the limits of the bed. -No pain with axial loading of the thigh. -Able to dorsiflex and plantarflex the ankle and toes. -Sensation is grossly intact to light touch throughout the sural, saphenous, superficial peroneal, and deep peroneal distributions. -Toes have good capillary refill. Diagnostic Imaging: I did personally review and interpret x-rays and the CT scan of the left hip which do show an intertrochanteric hip fracture on the left. X-rays the left shoulder show a mildly displaced surgical neck fracture of the proximal humerus. Results - Labs Result Diagrams: 09/02/17 01:45 09/02/17 01:45 Labs: Abnormal lab results WBC 13.8 K/mcL (4.3-11.1) H 09/02/17 01:45 RDW 15.1 % (11.5-14.5) H 09/02/17 01:45 Neutrophils # 11.3 K/mcL (1.6-8.9) H 09/02/17 01:45 PT 12.6 Seconds (9.4-12.1) H 09/01/17 12:14 Sodium 132 mEq/L (136-145) L 09/02/17 01:45 Carbon Dioxide 21 mEq/L (23-29) L 09/02/17 01:45 Glucose 354 mg/dL (70-105) H 09/02/17 01:45 POC Glucose 299 mg/dL (70-99) H 09/02/17 04:23 Calcium 8.5 mg/dL (8.6-10.3) L 09/02/17 01:45 Phosphorus 5.2 mg/dL (2.7-4.5) H 09/02/17 01:45 Urine Protein 100 mg/dL (Neg-Trace) H 09/01/17 13:29 Urine Glucose (UA) >=1000 mg/dL (Normal) H 09/01/17 13:29 Urine Ketones 40 mg/dL (Negative) H 09/01/17 13:29 Ur Squamous Epith Cells Many per lpf (None-Few) H 09/01/17 13:29 H & H 09/02/17 Range/Units 01:45 Hgb 12.4 D (11.5-15.4) g/dL Hct 36.7 (35.3-44.9) % All other labs normal. Consult Discharge Plan - Plan Referrals: Peter Mckenzie DO [Primary Care Provider] -
[2017-09-02] MEDS ORDERED: FLUoxetine 20 MG CAPSULE PO SCH (09:00)
--- NOTE | 2017-09-02 09:57 | Cardiology Consult Note ---
<Farrukh Cain - Last Filed: 09/02/17 09:53> Date of Encounter: 09/02/17 Time of Encounter: 09:53 Assessment and Plan (1) Persistent atrial fibrillation Current Visit: No Status: Chronic H/o of chronic afib. Presents with atrial fibrillation with RVR after falling at home. On lopressor and cardizem at home for rate control. Reports missing morning medications due to falling and not being able to get up. EKG shows atrial fibrillation with RVR. No acute ST/T wave changes. On cardizem gtt 10 mg/hr currently. NPO at this time. Continue cardizem for rate control until she is able to take her medications. Recommend giving home montiel of bb if able from surgery standpoint. TTE 03/2016- EF 60-65%. Mild to moderate TR. Mild PAH. Okay to hold pradaxa for surgery. Restart when safe from post-operative bleeding standpoint. (2) Pacemaker Current Visit: Yes Status: Acute H/o PPM for SSS. Recommend device check prior to surgery. Discussion w patient/family: The assessment and plan as outlined above was discussed with the patient and/or family members who expressed understanding and agreement. All questions were answered. Thank you for involving us in the care of your patient. Please call with any questions. History of Present Illness Consult date: 09/02/17 Requesting physician: Bora Child Consult reason: atrial fibrillation with RVR Chief complaint: fall History of present illness: Ms. Bolaños is a 86 year old female with past medical history of chronic atrial fibrillation on pradaxa, SSS s/p PPM, HTN, and DM. She presents after tripping and falling at home. She does use a walker. Denies loss of consciousness, dizziness, chest pain, or SOB. She was unable to stand at home and layed for a few hours prior to receiving help. States that she was unable to take her medications. She was found to be in atrial fibrillation with RVR on admission. SHe is also found to have a left hip and shoulder fracture. Past Med Surg Social Fam HX - Past Medical History Medical history: arthritis, atrial fibrillation, CVA, diabetes, GERD, hyperlipidemia, hypertension, RA, other Additional medical history: RA Psychiatric history: no psych history - Past Surgical History Surgical History: cholecystectomy, pacemaker/AICD, other, pacemaker Additional surgical history: Carpal tunnel on left hand, pacemaker - Social History Smoking Status: Never smoker Smokeless Tobacco Status: No Alcohol use: none Drug use: none - Family History Sister Living Status: Age at : 89 Hx Family Cardiac Disorders: Yes Hx Family Endocrine Disorder: Yes Father Living Status: Hx Family Cardiac Disorders: Yes Mother Hx Family Cardiac Disorders: Yes (HTN) Brother Adopted: No Family Member Ethnicity: Non- Living Status: Still Living Hx Family Cardiac Disorders: Yes (open heart surgery) Hx Family Respiratory Disorders: No Hx Family Cancer: Yes (Leukemia) Hx Family GI Disorders: No Hx Family Endocrine Disorder: No Hx Family Neuromuscular Disorders: No Hx Family HEENT Disorders: No Hx Family Autoimmune Disorders: No Medications and Allergies Diltiazem CD (24hr) [Cardizem CD] 240 mg PO QAM 05/10/15 [History] Isosorbide MONOnitrate (24 HR) [Imdur] 90 mg PO QAM 05/10/15 [History] Sulfasalazine [Azulfidine] 1,000 mg PO BID 08/12/15 [History] Metoprolol [Lopressor] 25 mg PO BID 05/10/16 [History] Simvastatin [Zocor] 40 mg PO HS 05/10/16 [History] Dabigatran Etexilate Mesylate [Pradaxa] 150 mg PO BID 09/01/17 [History] FLUoxetine HCl [Prozac] 40 mg PO DAILY 09/01/17 [History] Pantoprazole Sodium [Protonix] 40 mg PO DAILY PRN 09/01/17 [History] Polyethylene Glycol 3350 [MiraLAX] 17 gm PO DAILY PRN 09/01/17 [History] 3 Allergy/AdvReac Type Severity Reaction Status Date / Time No Known Allergies Allergy Verified 05/10/16 15:17 All Systems Review: The remainder of the systems were reviewed and are negative Physical Examination Vital Signs, Last 4 Hours Temp Pulse Resp BP Pulse Ox 09/02/17 07:41 97 15 153/97 96 09/02/17 07:36 93 09/02/17 07:12 98.8 F 104 16 148/97 98 General: Other (drowsy, falls asleep easily) HEENT: Atraumatic, Normocephaly, Mucus Membranes Moist Neck: No JVD, Normal carotid pulses Cardiac: Other (irregularly irregular) Lungs: Normal Breath Sounds, No Wheeze, Rales, Rhonchi Neuro: Other (Drowsy, oriented to self and place. ) Abdomen: Soft, Non-Tender Skin: No rashes noted on visualized skin Musculoskeletal: No Chest Wall Tenderness Extremities: No Clubbing, No Cyanosis, No Edema, Normal Pulses Results 09/02/17 01:45 09/02/17 01:45 Lab Results 09/01/17 09/02/17 09/02/17 18:31 01:45 01:45 WBC 13.8 H Hgb 12.4 D Hct 36.7 Plt Count 246 Sodium Potassium Chloride Carbon Dioxide BUN Creatinine Glucose Calcium Magnesium Troponin I < 0.03 0.03 09/02/17 01:45 WBC Hgb Hct Plt Count Sodium 132 L Potassium 3.7 Chloride 101 Carbon Dioxide 21 L BUN 19 Creatinine 0.75 Glucose 354 H Calcium 8.5 L Magnesium 1.7 Troponin I - Imaging and Cardiology Echo: pending - EKG Interpretation EKG results cardiology: personally reviewed Consult Discharge Plan - Plan Referrals: Peter Mckenzie DO [Primary Care Provider] - <Edvin Estrada - Last Filed: 09/04/17 08:48> Date of Encounter: 09/04/17 - Attending Attestation I have personally performed a face to face evaluation on this patient. I have reviewed and agree with the care plan. History and Exam by me shows: Known chronic AF , S/P pacer. Mechanical fall, denies syncope. No further cardiac testing needed. Continue home meds for rate control and anticoagulation. Assessment and Plan Discussion w patient/family: The assessment and plan as outlined above was discussed with the patient and/or family members who expressed understanding and agreement. All questions were answered. Thank you for involving us in the care of your patient. Please call with any questions. History of Present Illness History of present illness: Ms. Bolaños is a 86 year old female All Systems Review: The remainder of the systems were reviewed and are negative Physical Examination Vital Signs, Last 4 Hours Temp Pulse Resp BP Pulse Ox 09/04/17 06:58 98.1 F 92 14 131/78 96 Results 09/04/17 00:59 09/04/17 00:59 Lab Results 09/04/17 09/04/17 00:59 00:59 WBC 12.5 H Hgb 10.2 L Hct 30.4 L Plt Count 252 Sodium 135 L Potassium 3.5 Chloride 106 Carbon Dioxide 21 L BUN 33 H Creatinine 0.65 Glucose 139 H Calcium 8.4 L
[2017-09-02] MEDS ORDERED: *HR* Metoprolol 5 MG/5 ML VIAL IVP ONE (10:13)
[2017-09-02] MEDS ORDERED: Esmolol 100 MG/10 ML VIAL IVP ONE (10:14)
[2017-09-02] MEDS ORDERED: *HR* Amiodarone 150 MG/3 ML VIAL IVPB ONE (10:20)
[2017-09-02] MEDS ORDERED: Amiodarone Premix 360 MG/200 ML BAG IVC SCH ×2 (10:30→12:23)
[2017-09-02] MEDS ORDERED: ceFAZolin 2,000 MG in 0.9 % Sodium Chloride 100 ML IVP ONE (10:35)
[2017-09-02] MEDS ORDERED: MORPHINE SUL Oral CONC 10 MG/0.5 ML ORAL.SYG SL PRN ×2 (10:57→12:23)
[2017-09-02] MEDS ORDERED: Ondansetron 4 MG/2 ML VIAL IVP ONE ×2 (10:57→12:23)
[2017-09-02] MEDS ORDERED: Acetaminophen IV 1,000 MG/100 ML INFUS..BTL IVPB ONE ×2 (10:57→12:23)
[2017-09-02] MEDS ORDERED: Ketorolac 30 MG/ML VIAL ONE (11:22)
[2017-09-02] MEDS ORDERED: Dextrose Gel 15 GM/37.5 ML TUBE PO PRN ×4 (11:30→12:23)
[2017-09-02] MEDS ORDERED: *HR* Dextrose 50 % in Water (Syg) 50 ML SYRINGE IVP PRN ×2 (11:30→12:23)
[2017-09-02] MEDS ORDERED: Insulin LISPRO 300 UNITS/3 ML VIAL SQ SCH ×2 (11:30→21:00)
[2017-09-02] MEDS ORDERED: D5% in Water 1,000 ML IVC PRN ×2 (11:30→12:23)
--- NOTE | 2017-09-02 11:53 | Orthopedic Operative Note ---
Date of procedure: 09/02/17 Procedure: OPERATIVE REPORT DATE OF PROCEDURE: 09/02/2017 SURGEON: Bora Child MD BLOOD BANK ORDER CONTROL CLERK(S): There were no assistants PREOPERATIVE DIAGNOSIS: Left intertrochanteric hip fracture POSTOPERATIVE DIAGNOSIS: Left intertrochanteric hip fracture PROCEDURE: Medullary nail fixation of the left hip ANESTHESIA: Gen. anesthesia PREOPERATIVE ANTIBIOTICS: 2 g of Ancef ESTIMATED BLOOD LOSS: 30 milliliters IMPLANTS: [place] gamma 3; 10 mm x 170 mm with 125 degree angle with 95 mm lag screw PREOPERATIVE NOTE AND INDICATIONS: This patient is an 86-year-old female with a left intertrochanteric hip fracture. Treatment options were discussed and the recommendation was for nail fixation of the left hip. Of note she does have a proximal humerus fracture however will manage his nonoperatively. The surgical plan was discussed with the patient. The risks, benefits, alternatives, and potential complications of this procedure were discussed with the patient including injury to veins, arteries, nerves, tendons, ligaments, and bone. Also discussed were the risks of infection, bleeding, pain, blood clots, the possible need for a blood transfusion, the possible need for further procedures, heart attack, stroke, and . Additional risks include malunion , nonunion, hardware failure. All of this was explained in simple terms, and the patient verbalized understanding and wished to proceed. Consent was given to proceed with surgery. PROCEDURE: The patient was seen in the preoperative holding area where the identify and the consent were confirmed. The left hip was marked. Final questions were answered. The patient was brought back to the operating room. A huddle was performed with the patient and all vital surgical team members confirming patient identity, the correct procedure, and the correct operative site. Gen. anesthesia was administered. She was placed on the fracture table and the right lower extremity was lowered out of the way. X-rays confirmed no displacement of her fracture. The left thigh was prepped and draped in the usual sterile fashion. A surgical time out was performed immediately preceding the incision with all personnel in the operating room to confirm patient identity, the correct operative site and extremity, correct radiographic studies , availability of appropriate surgical equipment, and agreement on the planned procedure. Small longitudinal incision was made superior to the greater trochanter and dissection proceeded carefully through the gluteal fascia. The curved awl was used to open the proximal femur and the ball-tipped guidewire placed. The canal was reamed up to 11.5 mm and the definitive nail was placed. The triple sleeve was used to make a second incision which was taken through the skin and subcutaneous tissue and fascia and the guidewire was drilled into the femoral head. This was measured and drilled. The definitive 95 mm lag screw was then placed into the femoral head. A second triple sleeve was used for the distal interlocking screw and a small incision was made and carried through the fascia. This was then drilled and the definitive 35 mm interlocking screw was placed. This was placed in static mode. The wounds were copiously irrigated and the fascia was closed with 0 Vicryl stitches followed by skin with 3-0 Vicryl and mari. A soft, sterile dressing was applied. The instrument, sponge, and needle counts were correct after wound closure. POST OPERATIVE PLAN: Weight Bearing: Weightbearing as tolerated on the bilateral lower extremities. DVT Prophylaxis: Pradaxa Activity: Activities as tolerated with the assistance of nursing and therapy Wound Care: Daily dressing changes on postoperative day 2 Pain Control: [place] Perioperative antibiotic prophylaxis: 2 doses of Ancef Social work for discharge planning Follow Up: 2 weeks for staple removal and therapy. Was there an technology assistant present: No Estimated blood loss (cc): 30
[2017-09-02] MEDS ORDERED: NON-FORMULARY MEDICATION 1 EACH EACH (Pantoprazole Sodium [Protonix] 40 MG) PO PRN (12:23)
[2017-09-02] MEDS ORDERED: Ondansetron 4 MG/2 ML VIAL IVP PRN (12:23)
[2017-09-02] MEDS ORDERED: Acetaminophen 325 MG TABLET PO PRN (12:23)
[2017-09-02] MEDS ORDERED: 0.9 % Sodium Chloride 1,000 ML IVC SCH (12:23)
[2017-09-02] MEDS ORDERED: Naloxone 0.4 MG/ML INJ IVP PRN (12:23)
--- NOTE | 2017-09-02 12:25 | Anesthesia Evaluation Post Op ---
Date of Encounter: 09/02/17 Time of Encounter: 12:10 - Vital Signs Vital Signs: Last Vital Signs Temp 97.6 F 09/02/17 12:12 Pulse 107 09/02/17 12:12 Resp 16 09/02/17 12:12 BP 140/98 09/02/17 12:12 Pulse Ox 94 09/02/17 12:12 - Lungs Lungs: Clear Ascult./Percussion - Airway Airway: Non-obstructed - Cardiovascular Irregular Rate, Baseline Rhythm - Mental Status Mental Status: Baseline Status - Nausea Vomiting Nausea Vomiting: Not Present - Hydration Hydration: NPO - Discharge PostOp Status: Transfer Patient to floor
[2017-09-02] MEDS: *HR* Metoprolol 5 MG/5 ML VIAL IVP SCH ×3 (16:00→23:44)
--- NOTE | 2017-09-02 17:11 | Internal Med Progress Note ---
Date of Encounter: 09/02/17 Time of Encounter: 11:00 - Assessment and plan (1) Atrial fibrillation with RVR Current Visit: Yes Status: Acute Assessment and plan: has h/o- a.fib, on CCB and BB at home; patient reports choking with meds at home ; has RVR at this time; will continue IV Cardizem drip and IV Lopressor for appropriate HR control<110; hold po meds and diet, f/up SECTION SUPERVISOR evaluation; f/up echo report; continue Telemetry monitoring, resume anticoagulation with Pradaxa. (2) Closed left hip fracture Current Visit: Yes Status: Acute Assessment and plan: s/p mechanical fall; CT left hip showed Acute comminuted nondisplaced left intertrochanteric femoral fracture. Orthopedics consulted, underwent Medullary nail fixation of the left hip today; monitor Hb closely; PT/OT evaluation; pain control with PRN PO Percocet and IV Fentanyl; supportive care; Qualifiers: Encounter type: initial encounter Qualified Code(s): S72.002A - Fracture of unspecified part of neck of left femur, initial encounter for closed fracture (3) Fracture of left humerus Current Visit: Yes Status: Acute Assessment and plan: s/p mechanical fall; Orthopedics consult appreciated- conservative management with sling and ROM exercises; Qualifiers: Encounter type: initial encounter Humerus Location: proximal Fracture type: closed Fracture morphology: unspecified fracture morphology Qualified Code(s): S42.202A - Unspecified fracture of upper end of left humerus, initial encounter for closed fracture (4) Pacemaker Current Visit: Yes Status: Chronic (5) Hyperlipidemia Current Visit: Yes Status: Chronic Qualifiers: Hyperlipidemia type: unspecified Qualified Code(s): E78.5 - Hyperlipidemia , unspecified (6) CVA (cerebral vascular accident) Current Visit: Yes Status: Chronic Qualifiers: CVA mechanism: unspecified Qualified Code(s): I63.9 - Cerebral infarction, unspecified (7) DM (diabetes mellitus), type 2 Current Visit: Yes Status: Chronic Assessment and plan: patient denies h/o- DM, blood sugars noted to be uncontrolled; start SSI, continue Accucheck blood glucose monitoring; check HbA1C; Qualifiers: Diabetes mellitus chcf insulin use: without chcf use Diabetes mellitus complication status: with hyperglycemia Qualified Code(s): E11.65 - Type 2 diabetes mellitus with hyperglycemia (8) Rheumatoid arthritis Current Visit: Yes Status: Chronic Qualifiers: Rheumatoid arthritis location: unspecified site Rheumatoid factor presence : unspecified presence Qualified Code(s): M06.9 - Rheumatoid arthritis, unspecified - Time Spent With Patient Total time spent is greater than 50% in coordination of care (as documented) at patient's floor/unit and/or counseling patient: - Subjective Interval history: Unable to answer questions due to drowsiness, just returned from OR; had left hip surgery; noted to have tachycardia, on IV Cardizem drip; - Constitutional Vitals: Temp Pulse Resp BP Pulse Ox 97.8 F 117 15 151/99 98 09/02/17 14:35 09/02/17 14:35 09/02/17 14:35 09/02/17 14:35 09/02/17 14:35 General appearance: Present: A&O X 1. Absent: answers questions appropriately - Respiratory Respiratory exam: Present: CTAB (anterolaterally). Absent: accessory muscle use , rales, rhonchi, wheezes - Cardiovascular Cardiovascular exam: Present: irregular rhythm, +S1, +S2, tachycardia. Absent: diastolic murmur, gallop, rubs, systolic murmur - GI/Abdominal GI/Abdominal exam: Present: normal bowel sounds, soft, no peritoneal signs. Absent: distended, tenderness - Extremities Exam Extremities exam: Present: warm, radial pulses palpable and symmetrical. Absent : calf tenderness, cyanotic, pedal edema Additional comments: left hip with surgical dressing and some dry blood staining+ Internal Medicine: Result - Labs CBC & Chem 7: 09/02/17 01:45 09/02/17 01:45 Labs: Short CBC 09/02/17 Range/Units 01:45 WBC 13.8 H (4.3-11.1) K/mcL Hgb 12.4 D (11.5-15.4) g/dL Hct 36.7 (35.3-44.9) % Plt Count 246 (140-400) K/mcL Neutrophils # 11.3 H (1.6-8.9) K/mcL BMP 09/02/17 01:45 Sodium 132 L Potassium 3.7 Chloride 101 Carbon Dioxide 21 L BUN 19 Creatinine 0.75 Glucose 354 H Calcium 8.5 L Cardiac Enzymes 09/01/17 09/02/17 Range/Units 18:31 01:45 Troponin I < 0.03 0.03 (< 0.04) ng/mL - ABG Interpretation ABG results: PT/INR, D-dimer PT 12.6 Seconds (9.4-12.1) H 09/01/17 12:14 - Impressions Impressions Fluoroscopy 09/02/17 00:00 IMPRESSION: Intraprocedural fluoroscopic spot images as above. See separate procedure report for more information. D/ / 09/02/2017 12:21:57 Durga Parker MD / christian Interpreting Provider: Durga Parker MD Hip X-Ray 09/02/17 00:00 IMPRESSION: Intraprocedural fluoroscopic spot images as above. See separate procedure report for more information. D/ / 09/02/2017 12:21:57 Durga Parker MD / christian Interpreting Provider: Durga Parker MD Echocardiogram 09/02/17 08:00 Impressions: LVEF 70%. Normal LV chamber size, wall thickness and function. Indeterminate diastolic function. Normal right ventricular structure and function. Mild tricuspid regurgitation. Mild pulmonary hypertension. Left Ventricular Wall Motion: Rest Echo Findings All wall segments showed normal motion. Findings: Study Quality * Technically adequate exam. ECG Findings * Atrial fibrillation. Left Ventricle * LVEF 70%. * Normal LV chamber size, wall thickness and function. * Indeterminate diastolic function. Right Ventricle * Normal right ventricular structure and function. Left Atrium * Mildly dilated left atrium. Right Atrium * Normal right atrial size. Aortic Valve * Trileaflet aortic valve. * Mildly sclerotic aortic valve leaflets. * No aortic regurgitation. * No aortic stenosis. Mitral Valve * Mild mitral annular calcification * Trace mitral regurgitation. * No mitral stenosis. Tricuspid Valve * Normal tricuspid valve structure. * Mild tricuspid regurgitation. * Mild pulmonary hypertension. Pulmonic Valve * Normal pulmonic valve structure and function. * No pulmonic regurgitation. Aorta * Normally sized aortic root. Pericardium * The pericardium appears normal. IVC * Normal IVC dimensions and inspiratory collapse. Pulmonary Artery * Normal visualized portions of the main pulmonary artery. Device lead * A device lead was visualized in the right atrium and right ventricle. Consult Discharge Plan - Plan Referrals: Peter Mckenzie DO [Primary Care Provider] -
[2017-09-02] MEDS: Insulin LISPRO 300 UNITS/3 ML VIAL SQ SCH ×2 (17:55→22:41)
[2017-09-02] MEDS: Isosorbide MONOnitrate (24 HR) 30 MG TAB.ER.24H PO SCH (18:55)
[2017-09-02] MEDS: Diltiazem CD (24hr) 240 MG CAPSULE PO SCH (18:55)
[2017-09-02] MEDS: 0.9 % Sodium Chloride 1,000 ML IVC SCH (18:56)
[2017-09-02] MEDS: sulfaSALAzine 500 MG TABLET PO SCH ×2 (18:56→21:34)
[2017-09-02] MEDS: *HR* Dabigatran 150 MG CAPSULE PO SCH (21:34)
[2017-09-03 01:22] LABS: Basophils % 0.1 %; Hematocrit 33.5 % (35.3-44.9); Hemoglobin 11.4 g/dL (11.5-15.4); Immature Granulocytes % 0.6 % (0-4); Lymphocytes # 0.8 K/mcL (0.6-4.6); Lymphocytes % 6.2 %; Mean Corpuscular Hemoglobin 30.2 pg (28.0-33.3); Mean Corpuscular Volume 88.6 fL (83.0-100.0); Mean Platelet Volume 10.8 fL (9.4-12.4); Monocytes # 1.3 K/mcL (0.0-1.3); Monocytes % 9.5 %; Platelet Count 232 K/mcL (140-400); Red Blood Count 3.78 M/mcL (3.82-4.97); Red Cell Distribution Width 15.4 % (11.5-14.5); Segmented Neutrophils % 83.6 %
[2017-09-03 01:41] LABS: BUN/Creatinine Ratio 37 (6-26); Blood Urea Nitrogen 23 mg/dL (8-23); Calcium 8.5 mg/dL (8.6-10.3); Carbon Dioxide 22 mEq/L (23-29); Chloride 105 mEq/L (98-107); Glucose 242 mg/dL (70-105); Osmolality,Calculated 294 (280-300); Potassium 3.5 mEq/L (3.5-5.1); Sodium 136 mEq/L (136-145); eGFR For African Americans > 60 (> 60); eGFR For Non-African Americans > 60 (> 60)
[2017-09-03] MEDS: Ketorolac 30 MG/ML VIAL IVP PRN ×3 (04:52→22:53)
[2017-09-03] MEDS: *HR* Metoprolol 5 MG/5 ML VIAL IVP SCH ×2 (05:59→14:52)
[2017-09-03] MEDS ORDERED: *HR* Heparin 5,000 UNIT/ML VIAL SQ SCH (06:00)
[2017-09-03 08:04] LABS: Estimated Average Glucose 220 mg/dl; Hemoglobin A1C 9.3 %
--- NOTE | 2017-09-03 08:16 | Orthopedics Progress Note ---
Date of Encounter: 09/04/17 Time of Encounter: 08:15 - Assessment and Plan (1) Intertrochanteric fracture of left hip Current Visit: Yes Status: Acute Qualifiers: Qualified Code(s): S72.145A - Nondisplaced intertrochanteric fracture of left femur, initial encounter for closed fracture Subjective Interval history: S: Resting comfortably in bed. She is quite drowsy but does not complain of pain. O: Afebrile on the vital signs are stable Inspection shows that the left hip dressings are clean, dry, and intact Neurovascularly intact distally A: Post internal fixation of the left hip, doing well P: At this point my recommendation is therapy when able [place] out today Continue Pradaxa for DVT prophylaxis Dressing change tomorrow Objective Vital signs: Vital Signs Temp Pulse Resp BP Pulse Ox 09/03/17 07:11 97.8 F 98 18 145/73 98 09/03/17 06:00 103 145/92 09/03/17 04:32 97.8 F 101 16 166/99 96 09/03/17 03:59 104 145/88 09/03/17 03:00 96 146/94 09/03/17 02:29 118 154/101 09/03/17 02:00 99 147/96 09/03/17 01:30 112 161/73 09/03/17 01:00 111 145/94 09/03/17 00:14 97.7 F 99 12 158/89 96 09/02/17 23:49 88 152/72 09/02/17 22:47 93 146/93 09/02/17 21:28 113 145/83 09/02/17 18:30 97.8 F 98 16 160/90 96 09/02/17 14:35 97.8 F 117 15 151/99 98 09/02/17 14:05 120 16 146/95 98 09/02/17 13:35 97.6 F 118 16 147/94 96 09/02/17 12:58 97.5 F L 117 17 134/90 98 09/02/17 12:29 97.6 F 108 17 152/71 95 09/02/17 12:12 97.6 F 107 16 140/98 94 09/02/17 12:02 97.2 F L 108 16 139/89 95 09/02/17 11:52 100 16 140/92 97 07/01/18 11:42 112 16 138/93 96 09/02/17 11:32 97.7 F 106 16 141/88 100 Intake and Output 09/02/17 09/03/17 09/03/17 23:59 07:59 15:59 Intake Total 192.5 / 192.5 20.5 / 20.5 Output Total 325 / 325 300 / 300 Balance -132.5 / -132.5 -279.5 / -279.5 Intake: IV Fluids 192.5 / 192.5 20.5 / 20.5 Cardizem 50 MG In 0.9 % Sodium 92.5 / 92.5 20.5 / 20.5 Chloride 40 ML @ 5 MG/HR 5 mls/ hr IVC .Q10H NAHEED Rx#:[id number] Ancef 2,000 MG In 0.9 % Sodium 100 / 100 Chloride 100 ML @ 200 mls/hr IVPB Q8HR NAHEED Rx#:[id number] Output: Catheter 325 / 325 300 / 300 Other: Blood Glucose* 229 230 - Labs CBC & BMP: 09/04/17 00:59 09/04/17 00:59 Labs: Abnormal lab results WBC 13.2 K/mcL (4.3-11.1) H 09/03/17 01:06 RBC 3.78 M/mcL (3.82-4.97) L 09/03/17 01:06 Hgb 11.4 g/dL (11.5-15.4) L 09/03/17 01:06 Hct 33.5 % (35.3-44.9) L 09/03/17 01:06 RDW 15.4 % (11.5-14.5) H 09/03/17 01:06 Neutrophils # 11.0 K/mcL (1.6-8.9) H 09/03/17 01:06 PT 12.6 Seconds (9.4-12.1) H 09/01/17 12:14 Carbon Dioxide 22 mEq/L (23-29) L 09/03/17 01:06 BUN/Creatinine Ratio 37 (6-26) H 09/03/17 01:06 Glucose 242 mg/dL (70-105) H 09/03/17 01:06 POC Glucose 299 mg/dL (70-99) H 09/02/17 04:23 Hemoglobin A1c 9.3 % (-5.6) H 09/03/17 01:06 Calcium 8.5 mg/dL (8.6-10.3) L 09/03/17 01:06 Phosphorus 5.2 mg/dL (2.7-4.5) H 09/02/17 01:45 Urine Protein 100 mg/dL (Neg-Trace) H 09/01/17 13:29 Urine Glucose (UA) >=1000 mg/dL (Normal) H 09/01/17 13:29 Urine Ketones 40 mg/dL (Negative) H 09/01/17 13:29 Ur Squamous Epith Cells Many per lpf (None-Few) H 09/01/17 13:29 - VTE Documentation of Mechanical Device: Intermittent pneumatic compression device Consult Discharge Plan - Plan Referrals: Peter Mckenzie DO [Primary Care Provider] -
[2017-09-03] MEDS ORDERED: NON-FORMULARY MEDICATION 1 EACH EACH (Fluoxetine Hcl [Prozac] 40 MG) PO SCH (09:00)
[2017-09-03] MEDS: *HR* Dabigatran 150 MG CAPSULE PO SCH ×2 (09:27→22:14)
[2017-09-03] MEDS: Isosorbide MONOnitrate (24 HR) 30 MG TAB.ER.24H PO SCH (09:29)
[2017-09-03] MEDS: sulfaSALAzine 500 MG TABLET PO SCH ×2 (09:29→22:14)
[2017-09-03] MEDS: FLUoxetine 20 MG CAPSULE PO SCH (09:30)
[2017-09-03] MEDS: Insulin LISPRO 300 UNITS/3 ML VIAL SQ SCH ×4 (09:34→22:15)
--- NOTE | 2017-09-03 11:08 | Cardiology Progress Note ---
Date of Encounter: 09/03/17 Time of Encounter: 11:04 Assessment and Plan (1) Persistent atrial fibrillation Current Visit: No Status: Chronic H/o of chronic afib. Presents with atrial fibrillation with RVR after falling at home. On lopressor and cardizem at home for rate control. Reports missing morning medications due to falling and not being able to get up. EKG shows atrial fibrillation with RVR. No acute ST/T wave changes. S/p hip repair. Medical management recommended for left shoulder. TTE 03/2016- EF 60-65%. Mild to moderate TR. Mild PAH. Pradaxa continued after surgery. Recommendations: She is now on nectar thickened liquids and puree diet. I will start her home medications. HR 90-100. (2) Pacemaker Current Visit: Yes Status: Chronic H/o PPM for SSS. Device check completed by surgical team prior to surgery and after. Shows normal lead function. Discussion w patient/family: The assessment and plan as outlined above was discussed with the patient and/or family members who expressed understanding and agreement. All questions were answered. Thank you for involving us in the care of your patient. Please call with any questions. Subjective Principal diagnosis: atrail fibrillation with RVR, fall Interval history: Ms. Bolaños is s/p left hip and left shoulder fracture. She underwent left hip repair yesterday. No complication from her procedure. Denies chest pain, SOB, or palpitations. She is now started on nectar liquids and pureed diet. Objective Vital Signs, Last 4 Hours Temp Pulse Resp BP Pulse Ox 09/03/17 07:11 97.8 F 98 18 145/73 98 General: Conversant, No Apparent Distress HEENT: Atraumatic, Normocephaly, Mucus Membranes Moist Neck: No JVD, Normal carotid pulses Cardiac: Other (Irregularly irregular) Lungs: Normal Breath Sounds, No Wheeze, Rales, Rhonchi Neuro: Alert and responsive, No focal deficits noted Abdomen: Soft, Non-Tender Skin: No rashes noted on visualized skin Musculoskeletal: No Chest Wall Tenderness, Other (Genralized weakness, sling on left arm. ) Extremities: No Clubbing, No Cyanosis, No Edema, Normal Pulses Results 09/03/17 01:06 09/03/17 01:06 Lab Results 09/03/17 09/03/17 01:06 01:06 WBC 13.2 H Hgb 11.4 L Hct 33.5 L Plt Count 232 Sodium 136 Potassium 3.5 Chloride 105 Carbon Dioxide 22 L BUN 23 Creatinine 0.62 Glucose 242 H Calcium 8.5 L - Imaging and Cardiology Echo: report reviewed - EKG Interpretation EKG results cardiology: personally reviewed - VTE Documentation of Mechanical Device: Intermittent pneumatic compression device Consult Discharge Plan - Plan Referrals: Peter Mckenzie DO [Primary Care Provider] -
[2017-09-03] MEDS: Diltiazem CD (24hr) 240 MG CAPSULE PO SCH (11:36)
[2017-09-03] MEDS ORDERED: *HR* Metoprolol 5 MG/5 ML VIAL IVP PRN (16:20)
[2017-09-03] MEDS: Insulin DETEMIR 100 UNIT/ML X5UNITS SQ SCH ×2 (17:03→22:15)
--- NOTE | 2017-09-03 17:37 | Electrocardiograph Report ---
[facility] Test Date: 2017-09-01 Pat Name: Ariella Bolaños Department: 104 Room: [facility] Gender: F Consumer Credit Counselor: ALECIA : [id number] Requested By: Kavon Blair Order Number: [id number] Reading MD: Twila Junior Measurements Intervals [place] Rate: 128 P: ND: 0 QRS: 14 QRSD: 80 T: 82 QT: 331 QTc: 407 Interpretive Statements ATRIAL FIBRILLATION WITH RAPID VENTRICULAR RESPONSE SEPTAL MYOCARDIAL INFARCTION, PROBABLY OLD WARNING: DATA QUALITY MAY AFFECT INTERPRETATION Electronically Signed On 09-03-2017 17:35:58 EDT by Twila Junior
--- NOTE | 2017-09-03 18:05 | Internal Med Progress Note ---
Date of Encounter: 09/03/17 Time of Encounter: 13:30 - Assessment and plan (1) Atrial fibrillation with RVR Current Visit: Yes Status: Acute Assessment and plan: has h/o- a.fib, on CCB and BB at home; evaluated by MATERIAL HANDLER FLOORPERSON, cleared for mechanical soft diet with nectar thick liquids. Will discontinue IV Cardizem drip, resume home dose of Cardizem CD and metoprolol. Cardiology follow-up appreciated. Echocardiogram shows 70% EF, indeterminate diastolic function. continue Telemetry monitoring, resumed anticoagulation with Pradaxa. (2) Closed left hip fracture Current Visit: Yes Status: Acute Assessment and plan: s/p mechanical fall; CT left hip showed Acute comminuted nondisplaced left intertrochanteric femoral fracture. Orthopedics consulted, underwent Medullary nail fixation of the left hip POD-1; monitor Hb closely, 1g drop but stable; PT/OT evaluation recommend ECF placement ; pain control with PRN PO Roxanol; supportive care; social human services assistants consulted for placement; Qualifiers: Encounter type: initial encounter Qualified Code(s): S72.002A - Fracture of unspecified part of neck of left femur, initial encounter for closed fracture (3) Fracture of left humerus Current Visit: Yes Status: Acute Assessment and plan: s/p mechanical fall; Orthopedics consult appreciated- conservative management with sling and ROM exercises; Qualifiers: Encounter type: initial encounter Humerus Location: proximal Fracture type: closed Fracture morphology: unspecified fracture morphology Qualified Code(s): S42.202A - Unspecified fracture of upper end of left humerus, initial encounter for closed fracture (4) Pacemaker Current Visit: Yes Status: Chronic (5) Hyperlipidemia Current Visit: Yes Status: Chronic Qualifiers: Hyperlipidemia type: unspecified Qualified Code(s): E78.5 - Hyperlipidemia , unspecified (6) CVA (cerebral vascular accident) Current Visit: Yes Status: Chronic Qualifiers: CVA mechanism: unspecified Qualified Code(s): I63.9 - Cerebral infarction, unspecified (7) DM (diabetes mellitus), type 2 Current Visit: Yes Status: Chronic Assessment and plan: Blood sugars continue to be elevated. Hemoglobin A1c noted to be 9.3%. Discussed with patient's son at bedside. Started low-dose basal insulin. Continue Accucheck blood glucose monitoring and sliding scale insulin; diabetic diet. Qualifiers: Diabetes mellitus manager long term care insulin use: without chcf use Diabetes mellitus complication status: with hyperglycemia Qualified Code(s): E11.65 - Type 2 diabetes mellitus with hyperglycemia (8) Rheumatoid arthritis Current Visit: Yes Status: Chronic Qualifiers: Rheumatoid arthritis location: unspecified site Rheumatoid factor presence : unspecified presence Qualified Code(s): M06.9 - Rheumatoid arthritis, unspecified - Time Spent With Patient Total time spent is greater than 50% in coordination of care (as documented) at patient's floor/unit and/or counseling patient: - Subjective Interval history: Noted to be awake and alert today; son at bedside; denies chest pain, dyspnea, palpitations; improving left hip pain; left shoulder in a sling; - Constitutional Vitals: Temp Pulse Resp BP Pulse Ox 98.3 F 101 16 129/70 96 09/03/17 16:24 09/03/17 16:24 09/03/17 16:24 09/03/17 16:24 09/03/17 16:24 General appearance: Present: A&O X 2, answers questions appropriately - Respiratory Respiratory exam: Present: CTAB. Absent: accessory muscle use, rales, rhonchi, wheezes - Cardiovascular Cardiovascular exam: Present: irregular rhythm, +S1, +S2, tachycardia. Absent: diastolic murmur, gallop, rubs, systolic murmur - GI/Abdominal GI/Abdominal exam: Present: normal bowel sounds, soft, no peritoneal signs. Absent: distended, tenderness - Extremities Exam Extremities exam: Present: warm, radial pulses palpable and symmetrical. Absent : calf tenderness, cyanotic, pedal edema Additional comments: left shoulder in sling; left lateral hip with improving edema, surgical dressing dry and intact - Neurological Exam Neurological exam: Present: CN II-XII intact, oriented X3, no focal deficits. Absent: pronater drift, facial droop, speech deficit Internal Medicine: Result - Labs CBC & Chem 7: 09/03/17 01:06 09/03/17 01:06 Labs: Short CBC 09/03/17 Range/Units 01:06 WBC 13.2 H (4.3-11.1) K/mcL Hgb 11.4 L (11.5-15.4) g/dL Hct 33.5 L (35.3-44.9) % Plt Count 232 (140-400) K/mcL Neutrophils # 11.0 H (1.6-8.9) K/mcL BMP 09/03/17 01:06 Sodium 136 Potassium 3.5 Chloride 105 Carbon Dioxide 22 L BUN 23 Creatinine 0.62 Glucose 242 H Calcium 8.5 L - ABG Interpretation ABG results: PT/INR, D-dimer PT 12.6 Seconds (9.4-12.1) H 09/01/17 12:14 - VTE Documentation of Mechanical Device: Intermittent pneumatic compression device Consult Discharge Plan - Plan Referrals: Peter Mckenzie DO [Primary Care Provider] -
[2017-09-04 01:31] LABS: Basophils % 0.1 %; Eosinophils # 0.1 K/mcL (0.0-0.6); Eosinophils % 0.6 %; Hematocrit 30.4 % (35.3-44.9); Hemoglobin 10.2 g/dL (11.5-15.4); Immature Granulocytes % 0.6 % (0-4); Lymphocytes # 1.5 K/mcL (0.6-4.6); Lymphocytes % 11.8 %; Mean Corpuscular HGB Conc 33.6 g/dL (31.6-35.5); Mean Corpuscular Hemoglobin 30.1 pg (28.0-33.3); Mean Corpuscular Volume 89.7 fL (83.0-100.0); Mean Platelet Volume 10.7 fL (9.4-12.4); Monocytes # 1.2 K/mcL (0.0-1.3); Monocytes % 9.6 %; Neutrophils # 9.7 K/mcL (1.6-8.9); Platelet Count 252 K/mcL (140-400); Red Blood Count 3.39 M/mcL (3.82-4.97); Red Cell Distribution Width 15.4 % (11.5-14.5); Segmented Neutrophils % 77.3 %
[2017-09-04 01:57] LABS: BUN/Creatinine Ratio 51 (6-26); Blood Urea Nitrogen 33 mg/dL (8-23); Calcium 8.4 mg/dL (8.6-10.3); Carbon Dioxide 21 mEq/L (23-29); Chloride 106 mEq/L (98-107); Glucose 139 mg/dL (70-105); Osmolality,Calculated 290 (280-300); Potassium 3.5 mEq/L (3.5-5.1); Sodium 135 mEq/L (136-145); eGFR For African Americans > 60 (> 60); eGFR For Non-African Americans > 60 (> 60)
[2017-09-04] MEDS: Insulin LISPRO 300 UNITS/3 ML VIAL SQ SCH ×3 (07:30→17:15)
--- NOTE | 2017-09-04 07:41 | Orthopedics Progress Note ---
Date of Encounter: 09/04/17 Time of Encounter: 07:39 - Assessment and Plan (1) Intertrochanteric fracture of left hip Current Visit: Yes Status: Acute Qualifiers: Qualified Code(s): S72.145A - Nondisplaced intertrochanteric fracture of left femur, initial encounter for closed fracture Subjective Principal diagnosis: atrail fibrillation with RVR, fall Interval history: S: Resting comfortably in bed. She is quite drowsy but does not complain of pain. O: Afebrile on the vital signs are stable Inspection shows that the left hip dressings are clean, dry, and intact Neurovascularly intact distally A: Post internal fixation of the left hip, doing well P: Resume postoperative care Physical therapy for mobilization Orthopedically stable for discharge Follow-up with me 2 weeks from the postoperative day for staple removal. Objective Vital signs: Vital Signs Temp Pulse Resp BP Pulse Ox 09/04/17 06:58 98.1 F 92 14 131/78 96 09/04/17 04:24 80 16 142/73 96 09/04/17 00:22 98.2 F 87 14 136/75 96 09/03/17 18:54 98.0 F 104 17 139/70 94 09/03/17 16:24 98.3 F 101 16 129/70 96 09/03/17 11:16 98.5 F 118 16 140/72 95 Intake and Output 09/03/17 09/03/17 09/04/17 15:59 23:59 07:59 Other: Meal Dinner Percent of Meal Consumed 20% # Voids 1 Weight 58.2 kg Blood Glucose* 281 285 84 - Labs CBC & BMP: 09/04/17 00:59 09/04/17 00:59 Labs: Abnormal lab results WBC 12.5 K/mcL (4.3-11.1) H 09/04/17 00:59 RBC 3.39 M/mcL (3.82-4.97) L 09/04/17 00:59 Hgb 10.2 g/dL (11.5-15.4) L 09/04/17 00:59 Hct 30.4 % (35.3-44.9) L 09/04/17 00:59 RDW 15.4 % (11.5-14.5) H 09/04/17 00:59 Neutrophils # 9.7 K/mcL (1.6-8.9) H 09/04/17 00:59 PT 12.6 Seconds (9.4-12.1) H 09/01/17 12:14 Sodium 135 mEq/L (136-145) L 09/04/17 00:59 Carbon Dioxide 21 mEq/L (23-29) L 09/04/17 00:59 BUN 33 mg/dL (8-23) H 09/04/17 00:59 BUN/Creatinine Ratio 51 (6-26) H 09/04/17 00:59 Glucose 139 mg/dL (70-105) H 09/04/17 00:59 POC Glucose 209 mg/dL (70-99) H 09/03/17 16:27 Hemoglobin A1c 9.3 % (-5.6) H 09/03/17 01:06 Calcium 8.4 mg/dL (8.6-10.3) L 09/04/17 00:59 Phosphorus 5.2 mg/dL (2.7-4.5) H 09/02/17 01:45 Urine Protein 100 mg/dL (Neg-Trace) H 09/01/17 13:29 Urine Glucose (UA) >=1000 mg/dL (Normal) H 09/01/17 13:29 Urine Ketones 40 mg/dL (Negative) H 09/01/17 13:29 Ur Squamous Epith Cells Many per lpf (None-Few) H 09/01/17 13:29 - VTE Documentation of Mechanical Device: Intermittent pneumatic compression device Consult Discharge Plan - Plan Referrals: Peter Mckenzie DO [Primary Care Provider] -
[2017-09-04] MEDS: Insulin DETEMIR 100 UNIT/ML X5UNITS SQ SCH (10:18)
[2017-09-04] MEDS: Isosorbide MONOnitrate (24 HR) 30 MG TAB.ER.24H PO SCH (10:19)
[2017-09-04] MEDS: Diltiazem CD (24hr) 240 MG CAPSULE PO SCH (10:20)
[2017-09-04] MEDS: *HR* Dabigatran 150 MG CAPSULE PO SCH (10:20)
[2017-09-04] MEDS: sulfaSALAzine 500 MG TABLET PO SCH (10:20)
[2017-09-04] MEDS: FLUoxetine 20 MG CAPSULE PO SCH (10:22)
[2017-09-04] MEDS: Ketorolac 30 MG/ML VIAL IVP PRN ×2 (11:32→18:23)
--- NOTE | 2017-09-04 11:41 | Cardiology Progress Note ---
Date of Encounter: 09/04/17 Time of Encounter: 11:30 Assessment and Plan (1) Persistent atrial fibrillation Current Visit: No Status: Chronic H/o of chronic afib. Presents with atrial fibrillation with RVR after falling at home. On lopressor and cardizem at home for rate control. Reports missing morning medications due to falling and not being able to get up. EKG shows atrial fibrillation with RVR. No acute ST/T wave changes. TTE completed during stay shows EF 70%. Mild TR, mild PAH. S/p hip repair 09/02/17. Medical management recommended for left shoulder. Oral medications restarted yesterday at home doses and HR appears to be rate controlled. AVg HR over 12 hours was 87 bpm. Pradaxa continued after surgery for primary CVA prevention. Cardiology will sign off. Out-pt f/u will be coordinated. (2) Pacemaker Current Visit: Yes Status: Chronic H/o PPM for SSS. Device check completed by surgical team prior to surgery and after. Shows normal lead function. Discussion w patient/family: The assessment and plan as outlined above was discussed with the patient and/or family members who expressed understanding and agreement. All questions were answered. Thank you for involving us in the care of your patient. Please call with any questions. Subjective Principal diagnosis: atrail fibrillation with RVR, fall Interval history: Ms. Bolaños is s/p left hip and left shoulder fracture. She underwent left hip repair 09/02/17. No complication from her procedure. Denies chest pain, SOB, or palpitations. She is now started back on her home medications. Objective Vital Signs, Last 4 Hours Temp Pulse Resp BP Pulse Ox 09/04/17 11:16 97.9 F 90 16 135/74 97 General: No Apparent Distress, Other (Drowsy) HEENT: Atraumatic, Normocephaly, Mucus Membranes Moist Neck: No JVD, Normal carotid pulses Cardiac: Other (Irregularly irregular) Lungs: Normal Breath Sounds, No Wheeze, Rales, Rhonchi Neuro: No focal deficits noted Abdomen: Soft, Non-Tender Skin: No rashes noted on visualized skin Musculoskeletal: No Chest Wall Tenderness Extremities: No Clubbing, No Cyanosis, No Edema, Normal Pulses Results 09/04/17 00:59 09/04/17 00:59 Lab Results 09/04/17 09/04/17 00:59 00:59 WBC 12.5 H Hgb 10.2 L Hct 30.4 L Plt Count 252 Sodium 135 L Potassium 3.5 Chloride 106 Carbon Dioxide 21 L BUN 33 H Creatinine 0.65 Glucose 139 H Calcium 8.4 L - Imaging and Cardiology Echo: report reviewed - EKG Interpretation EKG results cardiology: personally reviewed - VTE Documentation of Mechanical Device: Intermittent pneumatic compression device Consult Discharge Plan - Plan Referrals: Peter Mckenzie DO [Primary Care Provider] -
[2017-09-04 16:21] VITALS: BP 127/74
--- NOTE | 2017-09-04 16:46 | Discharge Summary ---
Orders not resulted at time of discharge: Pending orders 09/05/17 04:00 Hemoglobin and Hematocrit [HEME] AM 0400 Date of Encounter: 09/04/17 Time of Encounter: 16:41 - Discharge Diagnosis (1) Closed left hip fracture Priority: Primary Status: Acute Qualifiers: Qualified Code(s): S72.002A - Fracture of unspecified part of neck of left femur, initial encounter for closed fracture (2) Fracture of left humerus Priority: Primary Status: Acute Qualifiers: Encounter type: initial encounter Humerus Location: proximal Fracture type: closed Fracture morphology: unspecified fracture morphology Qualified Code(s): S42.202A - Unspecified fracture of upper end of left humerus, initial encounter for closed fracture (3) Atrial fibrillation with rapid ventricular response Priority: Primary Status: Acute (4) Hypokalemia Priority: Secondary Status: Acute (5) Debility Priority: Secondary Status: Acute Hospital course: Ms. Bolaños is a 86 year old female. She was admitted after a fall. She sustained a closed left hip fracture and closed the proximal left humerus fracture. She is to walk with a rolling walker at home, when it happened. She has 2 more falls in the last couple years ; did not sustain any fractures at those times. The patient was found to have A. fib with RVR in the emergency department. It was treated with IV Cardizem. Cardiology was consulted. Eventually the patient was switched to Cardizem CD and Lopressor. The patient underwent medullary nail fixation of the left hip on 09/02/2017. She did well during consult after surgery. She ate her breakfast and lunch today. She feels weak, otherwise she is not voicing any other problems. Denies chest pain. Denies difficulty breathing. Denies abdominal pain, nausea and vomiting. She makes good amounts of urine. I am discharging her to [facility] today. I talked to in length with her family about her present condition and future expectations. Discharge discussed with: patient, family, nurse - Time Spent with Patient Total time spent providing and/or coordinating discharge services: Greater than 30 minutes (40 minutes) - Discharge Medications Prescriptions: HYDROcodone/Acet 5/325 mg [[place] 5-325 mg] 1 tab PO Q6H PRN 3 Days #12 tab PRN Reason: Pain metFORMIN [Glucophage] 500 mg PO BIDWM #10 tablet Home Medications: Diltiazem CD (24hr) [Cardizem CD] 240 mg PO QAM 05/10/15 [History] Isosorbide MONOnitrate (24 HR) [Imdur] 90 mg PO QAM 05/10/15 [History] Sulfasalazine [Azulfidine] 1,000 mg PO BID 08/12/15 [History] Metoprolol [Lopressor] 25 mg PO BID 05/10/16 [History] Simvastatin [Zocor] 40 mg PO HS 05/10/16 [History] Dabigatran Etexilate Mesylate [Pradaxa] 150 mg PO BID 09/01/17 [History] FLUoxetine HCl [Prozac] 40 mg PO DAILY 09/01/17 [History] Pantoprazole Sodium [Protonix] 40 mg PO DAILY PRN 09/01/17 [History] Polyethylene Glycol 3350 [MiraLAX] 17 gm PO DAILY PRN 09/01/17 [History] Acetaminophen [Tylenol] 650 mg PO Q6HR PRN tablet 09/04/17 [Rx] HYDROcodone/Acet 5/325 mg [[place] 5-325 mg] 1 tab PO Q6H PRN 3 Days #12 tab 09/04 [Rx] metFORMIN [Glucophage] 500 mg PO BIDWM #10 tablet 09/04/17 [Rx] Allergies/Adverse Reactions: 3 Allergy/AdvReac Type Severity Reaction Status Date / Time No Known Allergies Allergy Verified 05/10/16 15:17 Date of admission: 09/01/17 13:56 Primary care physician: Peter Mckenzie Consults: 09/01/17 14:54 Consult to Nutrition [CONS] Routine Comment: Consulting Provider: NUTRITION Reason for Dietary Consult: MST Score Consult to [place] Sorter [CONS] Routine Reason for SW Consult: discharge planning 09/01/17 16:00 Consult to Cardiology [CONS] Routine Comment: Consulting Provider: Edvin Estrada Reason for Consult: A fib with RVR Call Completed: Yes 09/01/17 16:54 Consult to Speech Therapy [CONS] Routine Comment: Evaluate, develop and implement POC Reason for Consult: difficulty swallowing Call Completed: No 09/02/17 12:23 Consult to Occupational Therapy [CONS] Routine Comment: Evaluate, develop and implement POC Reason for Consult: post hip surgery Does patient have active BEDREST order?: No Is patient medically & hemodynamically stable?: Yes Consult to Orthopedic Navigator [CONS] [CONS] Routine Consult to Physical Therapy [CONS] Routine Comment: Evaluate, develop and implement POC Reason for Consult: post hip surgery Does patient have active BEDREST order?: No Is patient medically & hemodynamically stable?: Yes Consult to [place] Sorter [CONS] Routine Reason for SW Consult: post -op hip fracture RT Post Op Consult [CONS] Routine Discharging clinician: Vin Swenson Anticipated date of discharge: 09/04/17 - Constitutional Vitals: Temp Pulse Resp BP Pulse Ox 97.3 F L 81 16 127/74 97 09/04/17 16:18 09/04/17 16:18 09/04/17 16:18 09/04/17 16:18 09/04/17 16:18 General appearance: Present: A&O X 2, answers questions appropriately - Respiratory Respiratory exam: Present: CTAB. Absent: accessory muscle use, rales, rhonchi, wheezes - Cardiovascular Cardiovascular exam: Present: RRR, +S1, +S2. Absent: diastolic murmur, gallop, rubs, systolic murmur - GI/Abdominal GI/Abdominal exam: Present: normal bowel sounds, soft, no peritoneal signs. Absent: distended, tenderness - Patient Status Disposition: Transfer SNF Condition: Fair Functional capacity at discharge: bed bound Overall status at discharge: patient is not back to baseline - Discharge Instructions Follow Up With: Peter Mckenzie DO [Primary Care Provider] - - Diet and Activity Activity: as per physical therapy Diet: diabetic diet - VTE Documentation of Mechanical Device: Intermittent pneumatic compression device Contraindication No Overlap Therapy: Admin of oral Factor Xa Inhibitor (On Pradaxa) Deep Vein Thrombosis/Pulmonary Embolism Present on Admission: No
--- NOTE | 2017-09-04 17:08 | Physician Discharge Referral ---
ExtendedCare Referral Info Transfer To: F Provider in Charge: Sobieraj. Ramos Provider in Charge after Transfer: Other (A SNF physician) Institutional Level of Care: Skilled - Diagnosis (1) Closed left hip fracture Status: Acute (2) Fracture of left humerus Status: Acute (3) Atrial fibrillation with rapid ventricular response Status: Acute (4) Hypokalemia Status: Acute - Transfer Medications Prescriptions: HYDROcodone/Acet 5/325 mg [[place] 5-325 mg] 1 tab PO Q6H PRN 3 Days #12 tab PRN Reason: Pain metFORMIN [Glucophage] 500 mg PO BIDWM #10 tablet Home Medications: Diltiazem CD (24hr) [Cardizem CD] 240 mg PO QAM 05/10/15 [History] Isosorbide MONOnitrate (24 HR) [Imdur] 90 mg PO QAM 05/10/15 [History] Sulfasalazine [Azulfidine] 1,000 mg PO BID 08/12/15 [History] Metoprolol [Lopressor] 25 mg PO BID 05/10/16 [History] Simvastatin [Zocor] 40 mg PO HS 05/10/16 [History] Dabigatran Etexilate Mesylate [Pradaxa] 150 mg PO BID 09/01/17 [History] FLUoxetine HCl [Prozac] 40 mg PO DAILY 09/01/17 [History] Pantoprazole Sodium [Protonix] 40 mg PO DAILY PRN 09/01/17 [History] Polyethylene Glycol 3350 [MiraLAX] 17 gm PO DAILY PRN 09/01/17 [History] Acetaminophen [Tylenol] 650 mg PO Q6HR PRN tablet 09/04/17 [Rx] HYDROcodone/Acet 5/325 mg [[place] 5-325 mg] 1 tab PO Q6H PRN 3 Days #12 tab 09/04 [Rx] metFORMIN [Glucophage] 500 mg PO BIDWM #10 tablet 09/04/17 [Rx] Allergies/Adverse Reactions: 3 Allergy/AdvReac Type Severity Reaction Status Date / Time No Known Allergies Allergy Verified 05/10/16 15:17 - Respiratory Orders Smoking Cessation: Smoking cessation has been advised. For more information, call the [place] Tobacco Quit Line at 1-314-MGPH-NOW. CERTIFICATION: I certify that the transfer of the above named patient to an Extended Care Facility is necessary for the continuing treatment of the diagnosis listed. The above information is true and accurate reflection of patient's current condition. Confidential - Redisclosure prohibited without a patient's written consent.
== END 2017-09-04 18:50 | DRG 481 ==
LOC: EMEROO 11:11 → 3NENU 11:11 → SUATTDRO 13:56 → 3NENU 14:31
PROVIDERS: ADMIT Internal Medicine; ATTEND Internal Medicine